=== PATIENT | female | born 1935 | race Caucasian/White ===

== ENCOUNTER 2016-10-22 19:21 | Emergency (ER) | payer MEDICARE ==
[2016-10-22 19:33] VITALS: TEMP 98.3
[2016-10-22] MEDS ORDERED: ONDANSETRON 4 MG/2 ML VIAL IVP STA (19:42)
[2016-10-22] MEDS ORDERED: SODIUM CHLORIDE 0.9% 1,000 ML IV STA (19:42)
--- NOTE | 2016-10-22 19:44 | ED ---
General Adult HPI - General Chief complaint: Chest Pain Stated complaint: chest pain Time Seen by Provider: 10/22/16 19:28 Source: patient, EMS Mode of arrival: EMS Limitations: no limitations - History of Present Illness Initial comments: 80-year-old female history of asthma was at the movie when she suddenly began vomiting no diarrhea or abdominal pain also some mild chest pain. History of mild heart attack in the past history of blood clots 4 in the past. Currently on no blood thinner. No diabetes seizures stroke. No fever or chills. No blood with vomiting. - Related Data Home Medications Medication Instructions Recorded Confirmed Albuterol Sulfate [Proventil Hfa] 1 - 2 puff INHALATION RT-Q6H PRN 10/22/16 Aspirin EC [Ecotrin Low Dose] 81 mg PO DAILY 10/22/16 10/22/16 Budesonide/Formoterol Fumarate 2 puff INHALATION RT-BID 10/22/16 10/22/16 [Symbicort 160-4.5 Mcg Inhaler] Metoprolol Tartrate [Lopressor] 25 mg PO BID 10/22/16 10/22/16 Montelukast [Singulair] 10 mg PO HS 10/22/16 10/22/16 Omeprazole [PriLOSEC] 20 mg PO AC-BRKFST 10/22/16 10/22/16 amLODIPine [Norvasc] 5 mg PO DAILY 10/22/16 10/22/16 Previous Rx's Medication Instructions Recorded Ondansetron Odt [Zofran Odt] 4 mg PO Q8HR PRN #6 tab 10/22/16 Allergies Allergy/AdvReac Type Severity Reaction Status Date / Time No Known Allergies Allergy Verified 10/22/16 19:38 Review of Systems ROS Statement: Those systems with pertinent positive or pertinent negative responses have been documented in the HPI. ROS Other: All systems not noted in ROS Statement are negative. Constitutional: Denies: fever, chills, weakness ENT: Denies: ear pain Respiratory: Reports: cough, wheezes Cardiovascular: Reports: chest pain Gastrointestinal: Reports: nausea, vomiting. Denies: diarrhea Genitourinary: Denies: frequency Skin: Denies: rash Neurological: Denies: headache Psychiatric: Denies: anxiety Hematological/Lymphatic: Denies: easy bleeding, easy bruising Past Medical History Past Medical History: Asthma, COPD, Hypertension, Myocardial Infarction ([place]), Pulmonary Embolus ([place]) History of Any Multi-Drug Resistant Organisms: None Reported Past Surgical History: Appendectomy, Hysterectomy Past Psychological History: Anxiety Smoking Status: Never smoker Past Alcohol Use History: None Reported Past Drug Use History: None Reported General Exam Limitations: no limitations General appearance: alert Head exam: Present: atraumatic Eye exam: Present: PERRL, EOMI ENT exam: Present: normal oropharynx, mucous membranes moist, TM's normal bilaterally Neck exam: Present: normal inspection Respiratory exam: Present: normal lung sounds bilaterally Cardiovascular Exam: Present: regular rate, normal heart sounds GI/Abdominal exam: Present: soft, tenderness (Epigastric tenderness and mild right upper quadrant) Neurological exam: Present: alert, CN II-XII intact Psychiatric exam: Present: normal affect, normal mood Skin exam: Present: warm, dry Course Vital Signs 10/22/16 10/22/16 19:27 21:36 Temperature 98.3 F Pulse Rate 102 H 93 Respiratory 26 H 18 Rate Blood Pressure 145/75 137/75 O2 Sat by Pulse 95 97 Oximetry Medical Decision Making - Medical Decision Making EKG is satisfactory elevated white count prior from D margination CT of the chest reveals no pulmonary emboli despite elevated d-dimer. Patient is feeling better her asthma seizures. Improved still feels a little dry in the mouth but no further nausea. Most likely this represents acute gastritis or food poisoning was sent home with Zofran clear liquid diet follow-up with her doctor this week - Lab Data Result diagrams: 10/22/16 19:54 10/22/16 19:54 Lab Results 10/22/16 10/22/16 10/22/16 Range/Units 19:54 19:54 19:54 WBC 16.5 H (3.8-10.6) k/uL RBC 4.96 (3.80-5.40) m/uL Hgb 13.8 (11.4-16.0) gm/dL Hct 42.5 (34.0-46.0) % MCV 85.6 (80.0-100.0) fL MCH 27.7 (25.0-35.0) pg MCHC 32.4 (31.0-37.0) g/dL RDW 13.8 (11.5-15.5) % Plt Count 254 (150-450) k/uL Neutrophils % 85 % Lymphocytes % 8 % Monocytes % 5 % Eosinophils % 1 % Basophils % 0 % Neutrophils # 14.0 H (1.3-7.7) k/uL Lymphocytes # 1.2 (1.0-4.8) k/uL Monocytes # 0.9 (0-1.0) k/uL Eosinophils # 0.2 (0-0.7) k/uL Basophils # 0.0 (0-0.2) k/uL PT (9.0-12.0) sec INR (<1.1) APTT (22.0-30.0) sec D-Dimer (<0.60) mg/L FEU Sodium 142 (137-145) mmol/L Potassium 4.2 (3.5-5.1) mmol/L Chloride 108 H (98-107) mmol/L Carbon Dioxide 22 (22-30) mmol/L Anion Gap 12 mmol/L BUN 20 H (7-17) mg/dL Creatinine 0.63 (0.52-1.04) mg/dL Est GFR (MDRD) Af Amer >60 (>60 ml/min/1.73 sqM) Est GFR (MDRD) Non-Af >60 (>60 ml/min/1.73 sqM) Glucose 114 H (74-99) mg/dL Calcium 8.8 (8.4-10.2) mg/dL Magnesium 1.7 (1.6-2.3) mg/dL Total Bilirubin 0.5 (0.2-1.3) mg/dL AST 23 (14-36) U/L ALT 30 (9-52) U/L Alkaline Phosphatase 96 (38-126) U/L Total Creatine Kinase 60 (30-135) U/L CK-MB (CK-2) 1.0 (0.0-2.4) ng/mL CK-MB (CK-2) Rel Index 1.7 Troponin I <0.012 (0.000-0.034) ng/mL Total Protein 6.1 L (6.3-8.2) g/dL Albumin 3.6 (3.5-5.0) g/dL Amylase 35 (30-110) U/L Lipase 71 (23-300) U/L 01/14/17 Range/Units 19:54 WBC (3.8-10.6) k/uL RBC (3.80-5.40) m/uL Hgb (11.4-16.0) gm/dL Hct (34.0-46.0) % MCV (80.0-100.0) fL MCH (25.0-35.0) pg MCHC (31.0-37.0) g/dL RDW (11.5-15.5) % Plt Count (150-450) k/uL Neutrophils % % Lymphocytes % % Monocytes % % Eosinophils % % Basophils % % Neutrophils # (1.3-7.7) k/uL Lymphocytes # (1.0-4.8) k/uL Monocytes # (0-1.0) k/uL Eosinophils # (0-0.7) k/uL Basophils # (0-0.2) k/uL PT 10.3 (9.0-12.0) sec INR 1.0 (<1.1) APTT 20.2 L (22.0-30.0) sec D-Dimer 1.03 H (<0.60) mg/L FEU Sodium (137-145) mmol/L Potassium (3.5-5.1) mmol/L Chloride (98-107) mmol/L Carbon Dioxide (22-30) mmol/L Anion Gap mmol/L BUN (7-17) mg/dL Creatinine (0.52-1.04) mg/dL Est GFR (MDRD) Af Amer (>60 ml/min/1.73 sqM) Est GFR (MDRD) Non-Af (>60 ml/min/1.73 sqM) Glucose (74-99) mg/dL Calcium (8.4-10.2) mg/dL Magnesium (1.6-2.3) mg/dL Total Bilirubin (0.2-1.3) mg/dL AST (14-36) U/L ALT (9-52) U/L Alkaline Phosphatase (38-126) U/L Total Creatine Kinase (30-135) U/L CK-MB (CK-2) (0.0-2.4) ng/mL CK-MB (CK-2) Rel Index Troponin I (0.000-0.034) ng/mL Total Protein (6.3-8.2) g/dL Albumin (3.5-5.0) g/dL Amylase (30-110) U/L Lipase (23-300) U/L - EKG Data -: EKG Interpreted by Me 10/22/16 20:08 EKG 10/22/2016 1927 ventricular rate 94 bpm, UT interval 136 ms, QRS duration 64 ms, QT interval 356 ms normal sinus rhythm nonspecific ST-T changes poor baseline in V5 and 6 Disposition Clinical Impression: Gastroenteritis, Asthma Disposition: HOME SELF-CARE Instructions: Acute Nausea and Vomiting (ED) Prescriptions: Ondansetron Odt [Zofran Odt] 4 mg PO Q8HR PRN #6 tab PRN Reason: Vomiting Time of Disposition: 21:46
[2016-10-22 20:21] LABS: Basophils % (A) 0 %; CH 27.8; CHCM 32.6; Eosinophils # (A) 0.2 k/uL (0-0.7); Eosinophils % (A) 1 %; HCT 42.5 % (34.0-46.0); HDW 2.25; HGB 13.8 gm/dL (11.4-16.0); Luc % (Auto) 1; Lymphocytes # (A) 1.2 k/uL (1.0-4.8); Lymphocytes % (A) 8 %; MCH 27.7 pg (25.0-35.0); MCHC 32.4 g/dL (31.0-37.0); MCV 85.6 fL (80.0-100.0); Mean Platelet Volume 7.4; Monocytes # (A) 0.9 k/uL (0-1.0); Monocytes % (A) 5 %; Neutrophils % (A) 85 %; RBC 4.96 m/uL (3.80-5.40); RDW 13.8 % (11.5-15.5); WBC 16.5 k/uL (3.8-10.6); WBC (Perox) 16.57
--- NOTE | 2016-10-22 20:27 | XR ---
EXAMINATION TYPE: XR chest 2V DATE OF EXAM: 10/22/2016 8:16 PM COMPARISON: None HISTORY: 80-year-old female with chest pain TECHNIQUE: AP and lateral views FINDINGS: Heart is upper limits of normal in size. Aorta and pulmonary vasculature within normal limits. Mild i nterstitial prominence has a chronic appearance. No consolidation or pleural effusion. IMPRESSION: Chronic-appearing changes, possible bronchitis or chronic asthma. No definite acute process.
[2016-10-22 20:32] LABS: ALT 30 U/L (9-52); AST 23 U/L (14-36); Alkaline Phosphatase 96 U/L (38-126); Amylase 35 U/L (30-110); Anion Gap 12 mmol/L; Blood Urea Nitrogen 20 mg/dL (7-17); Calcium 8.8 mg/dL (8.4-10.2); Carbon Dioxide 22 mmol/L (22-30); Chloride 108 mmol/L (98-107); Glucose 114 mg/dL (74-99); Magnesium 1.7 mg/dL (1.6-2.3); Non-African American GFR(MDRD) >60 (>60 ml/min/1.73 sqM); Potassium 4.2 mmol/L (3.5-5.1); Sodium 142 mmol/L (137-145); Total Bilirubin 0.5 mg/dL (0.2-1.3); Total Protein 6.1 g/dL (6.3-8.2)
[2016-10-22 20:35] LABS: Partial Thromboplastin Time 20.2 sec (22.0-30.0); Prothrombin Time 10.3 sec (9.0-12.0)
[2016-10-22 20:37] LABS: Creatine Kinase 60 U/L (30-135)
[2016-10-22] MEDS ORDERED: RX INFO: IV CONTRAST WAS GIVEN 1 EACH MISC MISCELLANE PRN (20:47)
[2016-10-22 20:50] LABS: Troponin I <0.012 ng/mL (0.000-0.034)
--- NOTE | 2016-10-22 21:35 | CT ---
EXAMINATION TYPE: CT chest angio for PE DATE OF EXAM: 10/22/2016 9:22 PM COMPARISON: Radiograph same day HISTORY: 80-year-old female with shortness of breath TECHNIQUE: Contiguous axial scanning of the chest performed with IV Contrast, patient injected with 1 00 mL of Omnipaque 350. Coronal/sagittal MIP reconstructions performed. CT DLP: 179.5 mGycm Automated exposure control for dose reduction was used. FINDINGS: The heart is borderline enlarged without pericardial effusion. Coronary vessel calcifications are pre sent and are remarkable for coronary artery disease. Aorta is normal caliber with variant direct takeoff of the left vertebral artery directly from the ao rtic arch. There is satisfactory opacification of the pulmonary arterial system though with mild respiratory mot ion limiting evaluation. No pulmonary embolism is identified. Scattered nonenlarged mediastinal lymph nodes measuring up to 6 mm in the left tracheobronchial angle . There is [id number] diffuse bronchial wall thickening and hazy dependent atelectasis. No dahlia consolidation or pleural effusion. There is a moderate to large sized hiatal hernia. Partially visualized hypodense lesion measuring at least 1.9 cm in the anterior left kidney. There is also mild diffuse thickening of the left adrenal gland without discrete nodularity. Tiny anterior sp lenule is seen. Bones: No osseous destructive process. IMPRESSION: 1. MILD RESPIRATORY MOTION CAUSING SOME LIMITATIONS. NO DEFINITE PULMONARY EMBOLUS. 2. BORDERLINE CARDIOMEGALY AND CAD. 3. [id number] DIFFUSE BRONCHIAL WALL THICKENING COULD REPRESENT BRONCHITIS OR CHRONIC ASTHMA. 4. MODERATE TO LARGE SIZED HIATAL HERNIA. 5. PARTIALLY VISUALIZED HYPODENSE LESION ANTERIOR LEFT KIDNEY MEASURING AT LEAST 1.9 CM. POSSIBLE CYS T. RECOMMEND NONEMERGENT RENAL ULTRASOUND TO CONFIRM.
[2016-10-22 21:37] VITALS: BP 137/75; PULSE 93; RESP 18
== END 2016-10-22 21:58 | disposition home or self-care (01) ==
LOC: EC 19:21
DX: K52.9 Noninfective gastroenteritis and colitis, unspecified (principal); J45.909 Unspecified asthma, uncomplicated; J44.9 Chronic obstructive pulmonary disease, unspecified; K44.9 Diaphragmatic hernia without obstruction or gangrene; I25.2 Old myocardial infarction; Z79.82 Long term (current) use of aspirin; Z86.711 Personal history of pulmonary embolism; Z79.899 Other long term (current) drug therapy
CPT/HCPCS: 36415; 93005; 85379; 80053; 82150; 82550; 82553; 83690; 83735; 84484; 85025; 85610; 85730; 71020; 71275; 99285; 96374; 96361; Q9967; J2405

== ENCOUNTER 2018-05-30 18:05 | Inpatient (IN) | payer MEDICARE ==
[2018-05-30 19:19] LABS: Basophils % (A) 0 %; Eosinophils % (A) 0 %; HGB 13.8 gm/dL (11.4-16.0); Lymphocytes # (A) 2.3 k/uL (1.0-4.8); Lymphocytes % (A) 17 %; MCH 27.5 pg (25.0-35.0); MCHC 32.1 g/dL (31.0-37.0); MCV 85.6 fL (80.0-100.0); Monocytes # (A) 1.3 k/uL (0-1.0); Monocytes % (A) 10 %; Neutrophils # (A) 9.4 k/uL (1.3-7.7); Neutrophils % (A) 69 %; Platelet Count 218 k/uL (150-450); RBC 5.02 m/uL (3.80-5.40); WBC 13.6 k/uL (3.8-10.6)
[2018-05-30 19:29] LABS: ALT 38 U/L (9-52); AST 27 U/L (14-36); Albumin 3.8 g/dL (3.5-5.0); Alkaline Phosphatase 64 U/L (38-126); Anion Gap 10 mmol/L; Blood Urea Nitrogen 26 mg/dL (7-17); Calcium 9.4 mg/dL (8.4-10.2); Carbon Dioxide 23 mmol/L (22-30); Chloride 104 mmol/L (98-107); Glucose 103 mg/dL (74-99); Magnesium 2.1 mg/dL (1.6-2.3); Potassium 4.7 mmol/L (3.5-5.1); Sodium 137 mmol/L (137-145); Total Bilirubin 0.5 mg/dL (0.2-1.3); Total Protein 6.5 g/dL (6.3-8.2)
[2018-05-30 19:32] LABS: Creatine Kinase 32 U/L (30-135)
[2018-05-30 19:45] LABS: Troponin I <0.012 ng/mL (0.000-0.034)
--- NOTE | 2018-05-30 19:56 | XR ---
EXAMINATION: XR chest 2V DATE AND TIME: 05/30/2018 7:18 PM CLINICAL INDICATION: Chest Pain TECHNIQUE: PA and lateral COMPARISON: 10/22/2016 FINDINGS: The overlying soft tissues are prominent. Given this factor, the lungs appear to be clear. The pleural spaces are negative. The cardiac silhouette is mildly enlarged, unchanged. The remainder of the mediastinal silhouette is unremarkable. The skeletal structures and soft tissues are negative for acute findings. IMPRESSION: NO ACUTE PROCESS.
[2018-05-30 19:58] LABS: Creatine Kinase MB 2.6 ng/mL (0.0-2.4)
--- NOTE | 2018-05-30 20:12 | ED ---
General Adult HPI - General Chief complaint: Chest Pain Stated complaint: Chest Pain Time Seen by Provider: 05/30/18 18:08 Source: patient, RN notes reviewed, old records reviewed Mode of arrival: EMS Limitations: no limitations - History of Present Illness Initial comments: This is an 82-year-old female the ER for evaluation today. Patient resents today for evaluation regards to chest pain. Left-sided chest pain severe stress reaction. Patient has history of heart disease and cardiovascular disease. Patient had a syncopal episode on her front porch and was brought in by EMS. Patient did not lose consciousness. Had difficulty breathing and complaining of severe chest pain, chest pain per patient is improved while in our emergency room. Family states patient has not had prior reactions, patient is mildly poor historian regarding medical history - Related Data Home Medications Medication Instructions Recorded Confirmed Albuterol Sulfate [Proventil Hfa] 1 - 2 puff INHALATION RT-Q4H PRN 10/22/16 Aspirin EC [Ecotrin Low Dose] 81 mg PO DAILY 10/22/16 05/30/18 Metoprolol Tartrate [Lopressor] 25 mg PO BID 10/22/16 05/30/18 Montelukast [Singulair] 10 mg PO HS 10/22/16 05/30/18 Omeprazole [PriLOSEC] 20 mg PO AC-BRKFST 10/22/16 05/30/18 amLODIPine [Norvasc] 5 mg PO DAILY 10/22/16 05/30/18 Albuterol Nebulized [Ventolin 2.5 mg INHALATION Q4H PRN 05/30/18 05/30/18 Nebulized] Calcium Carbonate/Vitamin D3 1 tab PO DAILY 05/30/18 05/30/18 [Calcium 600-Vit D3 200 Tablet] Chondroitin 1 tab PO HS 05/30/18 05/30/18 Ferrous Sulfate [Feosol] 325 mg PO DAILY 05/30/18 05/30/18 Fluticasone/Salmeterol [Advair 1 inhalation PO RT-BID 05/30/18 05/30/18 250-50 Diskus] Lansoprazole 30 mg PO DAILY 05/30/18 05/30/18 Allergies Allergy/AdvReac Type Severity Reaction Status Date / Time orange juice [Mathews] Allergy Rash/Hives Verified 05/30/18 18:49 ciprofloxacin AdvReac Diarrhea Verified 05/30/18 18:49 gluten AdvReac Nausea & Verified 05/30/18 18:49 Vomiting & Diarrhea Review of Systems ROS Statement: Those systems with pertinent positive or pertinent negative responses have been documented in the HPI. ROS Other: All systems not noted in ROS Statement are negative. Past Medical History Past Medical History: Asthma, COPD, Hypertension, Myocardial Infarction ([place]), Pulmonary Embolus ([place]) History of Any Multi-Drug Resistant Organisms: None Reported Past Surgical History: Appendectomy, Hysterectomy Past Psychological History: Anxiety Smoking Status: Never smoker Past Alcohol Use History: None Reported Past Drug Use History: None Reported General Exam Limitations: no limitations General appearance: alert, in no apparent distress Head exam: Present: atraumatic, normocephalic, normal inspection Eye exam: Present: normal appearance, PERRL, EOMI. Absent: scleral icterus, conjunctival injection, periorbital swelling ENT exam: Present: normal exam, mucous membranes moist Neck exam: Present: normal inspection. Absent: tenderness, meningismus, lymphadenopathy Respiratory exam: Present: normal lung sounds bilaterally. Absent: respiratory distress, wheezes, rales, rhonchi, stridor Cardiovascular Exam: Present: regular rate, normal rhythm, normal heart sounds. Absent: systolic murmur, diastolic murmur, rubs, gallop, clicks GI/Abdominal exam: Present: soft, normal bowel sounds. Absent: distended, tenderness, guarding, rebound, rigid Extremities exam: Present: normal inspection, full ROM, normal capillary refill. Absent: tenderness, pedal edema, joint swelling, calf tenderness Back exam: Present: normal inspection Neurological exam: Present: alert, oriented X3, CN II-XII intact Psychiatric exam: Present: normal affect, normal mood Skin exam: Present: warm, dry, intact, normal color. Absent: rash Course Vital Signs 05/30/18 05/30/18 05/30/18 18:09 18:40 19:37 Temperature 98.3 F Pulse Rate 76 83 Respiratory 20 20 20 Rate Blood Pressure 179/78 174/77 O2 Sat by Pulse 98 96 Oximetry 05/30/18 20:51 Temperature Pulse Rate 74 Respiratory 18 Rate Blood Pressure 142/74 O2 Sat by Pulse 97 Oximetry - Reevaluation(s) Reevaluation #1: 05/30/18 21:12 Patient with no syncopal events here in the ER chest pain continues remain improved. Patient be admitted for cardiac observation EKG Findings - EKG Comments: EKG Findings:: EKG shows sinus rhythm rate of 90, AL 132, QRS 66, QTc 437 Medical Decision Making - Medical Decision Making 82 female the ER for chest pain. Will be admitted as chest pain observation - Lab Data Result diagrams: 05/30/18 19:03 05/30/18 19:03 Lab Results 05/30/18 05/30/18 05/30/18 Range/Units 19:03 19:03 19:03 WBC 13.6 H (3.8-10.6) k/uL RBC 5.02 (3.80-5.40) m/uL Hgb 13.8 (11.4-16.0) gm/dL Hct 43.0 (34.0-46.0) % MCV 85.6 (80.0-100.0) fL MCH 27.5 (25.0-35.0) pg MCHC 32.1 (31.0-37.0) g/dL RDW 15.0 (11.5-15.5) % Plt Count 218 (150-450) k/uL Neutrophils % 69 % Lymphocytes % 17 % Monocytes % 10 % Eosinophils % 0 % Basophils % 0 % Neutrophils # 9.4 H (1.3-7.7) k/uL Lymphocytes # 2.3 (1.0-4.8) k/uL Monocytes # 1.3 H (0-1.0) k/uL Eosinophils # 0.0 (0-0.7) k/uL Basophils # 0.0 (0-0.2) k/uL PT 9.5 (9.0-12.0) sec INR 1.0 (<1.2) APTT 20.4 L (22.0-30.0) sec D-Dimer 7.64 H (<0.60) mg/L FEU Sodium 137 (137-145) mmol/L Potassium 4.7 (3.5-5.1) mmol/L Chloride 104 (98-107) mmol/L Carbon Dioxide 23 (22-30) mmol/L Anion Gap 10 mmol/L BUN 26 H (7-17) mg/dL Creatinine 0.69 (0.52-1.04) mg/dL Est GFR (CKD-EPI)AfAm >90 (>60 ml/min/1.73 sqM) Est GFR (CKD-EPI)NonAf 82 (>60 ml/min/1.73 sqM) Glucose 103 H (74-99) mg/dL Calcium 9.4 (8.4-10.2) mg/dL Magnesium 2.1 (1.6-2.3) mg/dL Total Bilirubin 0.5 (0.2-1.3) mg/dL AST 27 (14-36) U/L ALT 38 (9-52) U/L Alkaline Phosphatase 64 (38-126) U/L Total Creatine Kinase (30-135) U/L CK-MB (CK-2) (0.0-2.4) ng/mL CK-MB (CK-2) Rel Index Troponin I (0.000-0.034) ng/mL NT-Pro-B Natriuret Pep pg/mL Total Protein 6.5 (6.3-8.2) g/dL Albumin 3.8 (3.5-5.0) g/dL 05/30/18 05/30/18 Range/Units 19:03 19:03 WBC (3.8-10.6) k/uL RBC (3.80-5.40) m/uL Hgb (11.4-16.0) gm/dL Hct (34.0-46.0) % MCV (80.0-100.0) fL MCH (25.0-35.0) pg MCHC (31.0-37.0) g/dL RDW (11.5-15.5) % Plt Count (150-450) k/uL Neutrophils % % Lymphocytes % % Monocytes % % Eosinophils % % Basophils % % Neutrophils # (1.3-7.7) k/uL Lymphocytes # (1.0-4.8) k/uL Monocytes # (0-1.0) k/uL Eosinophils # (0-0.7) k/uL Basophils # (0-0.2) k/uL PT (9.0-12.0) sec INR (<1.2) APTT (22.0-30.0) sec D-Dimer (<0.60) mg/L FEU Sodium (137-145) mmol/L Potassium (3.5-5.1) mmol/L Chloride (98-107) mmol/L Carbon Dioxide (22-30) mmol/L Anion Gap mmol/L BUN (7-17) mg/dL Creatinine (0.52-1.04) mg/dL Est GFR (CKD-EPI)AfAm (>60 ml/min/1.73 sqM) Est GFR (CKD-EPI)NonAf (>60 ml/min/1.73 sqM) Glucose (74-99) mg/dL Calcium (8.4-10.2) mg/dL Magnesium (1.6-2.3) mg/dL Total Bilirubin (0.2-1.3) mg/dL AST (14-36) U/L ALT (9-52) U/L Alkaline Phosphatase (38-126) U/L Total Creatine Kinase 32 (30-135) U/L CK-MB (CK-2) 2.6 H* (0.0-2.4) ng/mL CK-MB (CK-2) Rel Index 8.1 Troponin I <0.012 (0.000-0.034) ng/mL NT-Pro-B Natriuret Pep 456 pg/mL Total Protein (6.3-8.2) g/dL Albumin (3.5-5.0) g/dL - Radiology Data Radiology results: report reviewed (Chest x-rays negative for acute disease), image reviewed Critical Care Time Critical Care Time: Yes Total Critical Care Time: 31 Disposition Clinical Impression: Chest pain Disposition: ADMITTED IP TO THIS [facility] Condition: Good Instructions: Chest Pain (ED) Is patient prescribed a controlled substance at d/c from ED?: No Referrals: Malgorzata Kaplan DO [Primary Care Provider] - 1-2 days
[2018-05-30 20:19] LABS: Partial Thromboplastin Time 20.4 sec (22.0-30.0); Prothrombin Time 9.5 sec (9.0-12.0)
[2018-05-30 20:22] LABS: D-Dimer 7.64 mg/L FEU (<0.60)
[2018-05-30] MEDS ORDERED: HEPARIN SODIUM,PORCINE 5,000 UNIT/ML 1 ML VIAL IV PRN ×2 (21:12→23:15)
[2018-05-30] MEDS ORDERED: NITROGLYCERIN SL TABS 0.4 MG TAB SUBLINGUAL PRN (21:12)
[2018-05-30] MEDS ORDERED: ASPIRIN 81 MG PO STA (21:12)
[2018-05-30] MEDS ORDERED: HEPARIN SODIUM,PORCINE 5,000 UNIT/ML 1 ML VIAL IV ONE (21:12)
[2018-05-30] MEDS ORDERED: HEPARIN SOD,PORK IN 0.45% NACL 25,000 UNIT in 0.45% NACL 1 500ML.BAG IV SCH ×2 (21:15→23:45)
[2018-05-30] MEDS: SODIUM CHLORIDE 0.9% 1,000 ML IV SCH (22:11)
--- NOTE | 2018-05-30 22:31 | CT ---
EXAMINATION TYPE: CT angio chest with contrast and 3-D reconstruction renderings DATE OF EXAM: 05/30/2018 9:49 PM COMPARISON: None HISTORY: Chest and back pain. Elevated D-dimer. CT DLP: 230.2 mGycm Automated exposure control for dose reduction was used. CONTRAST: CTA scan of the thorax is performed with IV Contrast, patient injected with 58ml mL of Isov ue 370, pulmonary embolism protocol. 3-D reconstructions. FINDINGS: AIRWAYS: Unremarkable. LUNGS: The lungs are grossly clear, there is no concerning parenchymal mass or nodule identified. PLEURAL SPACES: There is no pleural effusion or pneumothorax seen. The tracheobronchial tree is valdes nt. MEDIASTINUM: There is satisfactory enhancement of the pulmonary artery and its branches, with nonoccl usive filling defects within branches of the left lower lobe pulmonary artery, namely the anterior, l ateral, and posterior basal segmental pulmonary arteries. No other pulmonary emboli. There is no righ t heart enlargement or other evidence of right heart strain. The aorta is unremarkable. There is moderate cardiomegaly with coronary calcifications noted. No pe ricardial effusion. There are is no mediastinal or hilar adenopathy. The proximal third of the stomac h has intrathoracic position. OTHER: No additional significant abnormality is seen. IMPRESSION: POSITIVE FOR PULMONARY EMBOLISM, IN THE LEFT LOWER LOBE SEGMENTAL BRANCHES.
[2018-05-30] MEDS ORDERED: ALBUTEROL NEBULIZED 2.5 MG/3 ML INHALATION PRN (23:13)
[2018-05-30] MEDS ORDERED: TEMAZEPAM 15 MG CAP PO PRN (23:14)
[2018-05-30] MEDS ORDERED: ACETAMINOPHEN TAB 500 MG TAB PO PRN (23:14)
[2018-05-30] MEDS ORDERED: HYDROcodone/APAP 5-325MG 1 EACH TAB PO PRN (23:14)
[2018-05-30] MEDS ORDERED: ALPRAZolam 0.25 MG TAB PO PRN (23:14)
[2018-05-30] MEDS ORDERED: HEPARIN SODIUM,PORCINE 10,000 UNIT/ML 1 ML VIAL IV ONE (23:15)
[2018-05-31 02:17] LABS: Creatine Kinase <20 U/L (30-135)
[2018-05-31 02:30] LABS: Creatine Kinase MB 1.4 ng/mL (0.0-2.4); Troponin I <0.012 ng/mL (0.000-0.034)
[2018-05-31] MEDS: PANTOPRAZOLE 40 MG TABLET PO SCH (06:02)
[2018-05-31 06:26] LABS: Basophils % (A) 0 %; Eosinophils # (A) 0.1 k/uL (0-0.7); Eosinophils % (A) 1 %; HCT 43.3 % (34.0-46.0); HGB 13.5 gm/dL (11.4-16.0); Lymphocytes # (A) 2.1 k/uL (1.0-4.8); Lymphocytes % (A) 16 %; MCH 27.2 pg (25.0-35.0); MCHC 31.2 g/dL (31.0-37.0); MCV 87.2 fL (80.0-100.0); Monocytes # (A) 0.9 k/uL (0-1.0); Monocytes % (A) 7 %; Neutrophils # (A) 9.7 k/uL (1.3-7.7); Neutrophils % (A) 74 %; Platelet Count 209 k/uL (150-450); RBC 4.96 m/uL (3.80-5.40); RDW 15.1 % (11.5-15.5); WBC 13.1 k/uL (3.8-10.6)
[2018-05-31 06:46] LABS: Creatine Kinase 26 U/L (30-135)
[2018-05-31 06:48] LABS: Anion Gap 7 mmol/L; Blood Urea Nitrogen 19 mg/dL (7-17); Calcium 9.2 mg/dL (8.4-10.2); Carbon Dioxide 24 mmol/L (22-30); Chloride 108 mmol/L (98-107); Cholesterol 217 mg/dL (<200); Glucose 90 mg/dL (74-99); HDL Cholesterol 44 mg/dL (40-60); LDL Cholesterol,Calculated 148 mg/dL (0-99); Potassium 4.5 mmol/L (3.5-5.1); Sodium 139 mmol/L (137-145); Triglycerides 126 mg/dL (<150)
[2018-05-31 06:59] LABS: Creatine Kinase MB 1.7 ng/mL (0.0-2.4); Troponin I <0.012 ng/mL (0.000-0.034)
[2018-05-31 09:00] VITALS: RESP 16
[2018-05-31] MEDS ORDERED: NON-FORMULARY DRUG (Lansoprazole [Lansoprazole] 30 MG) PO SCH (09:00)
[2018-05-31] MEDS ORDERED: ASPIRIN 325 MG TAB PO SCH (09:00)
[2018-05-31] MEDS: METOPROLOL TARTRATE 25 MG TAB PO SCH ×2 (09:03→22:09)
[2018-05-31] MEDS: FERROUS SULFATE 325 MG TAB PO SCH (09:03)
[2018-05-31] MEDS: ATORVASTATIN 80 MG TAB PO SCH (09:03)
[2018-05-31] MEDS: amLODIPine 5 MG TAB PO SCH (09:03)
[2018-05-31] MEDS: ASPIRIN 81 MG PO SCH (09:03)
[2018-05-31] MEDS: CALCIUM CARB-VIT D 500MG-200UN 1 EACH TAB PO SCH (09:03)
--- NOTE | 2018-05-31 09:03 | P.CRDCN ---
History of Present Illness Consult date: 05/31/18 Requesting physician: Geronimo Lafleur Consult reason: chest pain Chief complaint: Chest pain History of present illness: This is a very pleasant 82-year-old female with history of asthma, COPD, hypertension, prior pulmonary embolism, who presents to the hospital with symptoms of chest discomfort which she described as quite severe, patient also states she became very short of breath and developed a headache. Her daughter was assisting her to the car to come to the emergency room, when she had a near syncopal episode so EMS was called and brought her here. Blood pressure on arrival here 178/78, heart rate in the 70s, 98% on 2 L of oxygen. Temperature 98.3. Chest x-ray on arrival here did not reveal any acute process. CT of the chest was performed which was positive for pulmonary embolism in the left lower lobe segmental branches. EKG shows normal sinus rhythm with S1 Q3 T3 pattern noted. White blood cell count 13.6, hemoglobin 13.5, platelet count 209. D- dimer on admission 7.6. Sodium 139, potassium 4.5, BUN 19, creatinine 0.6. Troponins negative 3. Cholesterol 217, LDL 148, HDL 44, and triglycerides 126. Patient was initiated on IV heparin in the emergency room, at the time of my examination she denies any chest pain in her breathing is stable. Patient was taken off of her anticoagulants following her last PE. She states that it was not determined at that time why she had a pulmonary embolism. She did return recently from a long trip however they make frequent stops according to the daughter. No recent surgeries. She is fairly active. We will obtain a bilateral venous duplex study, suggested hematology consultation due to the fact that this is her second episode with a pulmonary embolism. Past Medical History Past Medical History: Asthma, COPD, Hypertension, Pulmonary Embolus (PE) Additional Past Medical History / Comment(s): PE 8yrs ago, celiac disease History of Any Multi-Drug Resistant Organisms: None Reported Past Surgical History: Appendectomy, Hysterectomy Past Anesthesia/Blood Transfusion Reactions: No Reported Reaction Past Psychological History: Anxiety Smoking Status: Never smoker Past Alcohol Use History: None Reported Past Drug Use History: None Reported - Past Family History Mother History Unknown: Yes Medications and Allergies Home Medications Medication Instructions Recorded Confirmed Type Albuterol Sulfate [Proventil Hfa] 1 - 2 puff INHALATION RT-Q4H PRN 10/22/16 History Aspirin EC [Ecotrin Low Dose] 81 mg PO DAILY 10/22/16 05/30/18 History Metoprolol Tartrate [Lopressor] 25 mg PO BID 10/22/16 05/30/18 History Montelukast [Singulair] 10 mg PO HS 10/22/16 05/30/18 History Omeprazole [PriLOSEC] 20 mg PO AC-BRKFST 10/22/16 05/30/18 History amLODIPine [Norvasc] 5 mg PO DAILY 10/22/16 05/30/18 History Albuterol Nebulized [Ventolin 2.5 mg INHALATION Q4H PRN 05/30/18 05/30/18 History Nebulized] Calcium Carbonate/Vitamin D3 1 tab PO DAILY 05/30/18 05/30/18 History [Calcium 600-Vit D3 200 Tablet] Chondroitin 1 tab PO HS 05/30/18 05/30/18 History Ferrous Sulfate [Feosol] 325 mg PO DAILY 05/30/18 05/30/18 History Fluticasone/Salmeterol [Advair 1 inhalation PO RT-BID 05/30/18 05/30/18 History 250-50 Diskus] Lansoprazole 30 mg PO DAILY 05/30/18 05/30/18 History Allergies Allergy/AdvReac Type Severity Reaction Status Date / Time orange juice [[place]] Allergy Rash/Hives Verified 05/30/18 18:49 ciprofloxacin AdvReac Diarrhea Verified 05/30/18 18:49 gluten AdvReac Nausea & Verified 05/30/18 18:49 Vomiting & Diarrhea Physical Exam Vitals: Vital Signs Temp Pulse Pulse Resp BP BP Pulse Ox 05/31/18 04:00 97.8 F 83 18 158/76 96 05/31/18 00:45 97.5 F L 77 18 148/67 93 L 05/30/18 23:54 99.9 F H 77 18 160/79 97 05/30/18 22:16 82 18 165/79 97 05/30/18 20:51 74 18 142/74 97 05/30/18 19:37 83 20 174/77 96 05/30/18 18:40 20 05/30/18 18:09 98.3 F 76 20 179/78 98 Intake and Output 08/05/31/18 05/31/18 22:59 06:59 14:59 Intake Total 240 Balance 240 Intake: Oral 240 Other: # Voids 1 Weight 65.771 kg 58.5 kg PHYSICAL EXAMINATION: GENERAL: 82-year-old female in no acute distress at the time of my examination HEENT: Head is atraumatic, normocephalic. Pupils equal, round. Sclera anicteric. Conjunctiva are clear. Mucous membranes of the mouth are moist. Neck is supple. There is no elevated jugular venous pressure.] bruit is heard. HEART EXAMINATION: Heart S1, S2 normal. No murmur or gallop heard. CHEST EXAMINATION: Lungs are clear to auscultation and precussion. No chest wall tenderness is noted on palpation or with deep breathing. ABDOMEN: Soft, nontender. Bowel sounds are heard. No organomegaly noted. EXTREMITIES: 2+ peripheral pulses with no evidence of peripheral edema and no calf tenderness noted. NEUROLOGIC patient is awake, alert and oriented ?-3. . Results 05/31/18 06:04 05/31/18 06:04 Cardiac Enzymes 05/30/18 05/30/18 05/31/18 Range/Units 19:03 19:03 00:59 AST 27 (14-36) U/L CK-MB (CK-2) 2.6 H* 1.4 (0.0-2.4) ng/mL Troponin I <0.012 <0.012 (0.000-0.034) ng/mL 05/31/18 Range/Units 06:04 AST (14-36) U/L CK-MB (CK-2) 1.7 (0.0-2.4) ng/mL Troponin I <0.012 (0.000-0.034) ng/mL Coagulation 05/30/18 05/31/18 Range/Units 19:03 06:04 PT 9.5 (9.0-12.0) sec APTT 20.4 L 65.1 H (22.0-30.0) sec Lipids 05/31/18 Range/Units 06:04 Triglycerides 126 (<150) mg/dL Cholesterol 217 H (<200) mg/dL HDL Cholesterol 44 (40-60) mg/dL CBC 05/30/18 05/31/18 Range/Units 19:03 06:04 WBC 13.6 H 13.1 H (3.8-10.6) k/uL RBC 5.02 4.96 (3.80-5.40) m/uL Hgb 13.8 13.5 (11.4-16.0) gm/dL Hct 43.0 43.3 (34.0-46.0) % Plt Count 218 209 (150-450) k/uL Comprehensive Metabolic Panel 05/30/18 05/31/18 Range/Units 19:03 06:04 Sodium 137 139 (137-145) mmol/L Potassium 4.7 4.5 (3.5-5.1) mmol/L Chloride 104 108 H (98-107) mmol/L Carbon Dioxide 23 24 (22-30) mmol/L BUN 26 H 19 H (7-17) mg/dL Creatinine 0.69 0.63 (0.52-1.04) mg/dL Glucose 103 H 90 (74-99) mg/dL Calcium 9.4 9.2 (8.4-10.2) mg/dL AST 27 (14-36) U/L ALT 38 (9-52) U/L Alkaline Phosphatase 64 (38-126) U/L Total Protein 6.5 (6.3-8.2) g/dL Albumin 3.8 (3.5-5.0) g/dL Current Medications Generic Name Dose Route Start Last Admin Trade Name Freq PRN Reason Stop Dose Admin Acetaminophen 500 mg 05/30/18 23:14 Tylenol Tab PO Q6HR PRN Fever and/ or Pain Hydrocodone Bitart/Acetaminophen 1 each 05/30/18 23:14 [place] 5-325 PO Q6HR PRN Pain Albuterol Sulfate 2.5 mg 05/30/18 23:13 Ventolin Nebulized INHALATION Q4H PRN Shortness Of Breath Alprazolam 0.25 mg 05/30/18 23:14 Xanax PO TID PRN Anxiety Amlodipine Besylate 5 mg 05/31/18 09:00 Norvasc PO DAILY [facility] Aspirin 81 mg 05/31/18 09:00 Aspirin PO DAILY [facility] Atorvastatin Calcium 80 mg 05/31/18 09:00 Lipitor PO DAILY [facility] Budesonide/Formoterol Fumarate 2 puff 05/31/18 08:00 Symbicort 80-4.5 Mcg Inhaler INHALATION RT-BID [facility] Calcium Carbonate 1 each 05/31/18 09:00 Oscal 500+D PO DAILY LISA Ferrous Sulfate 325 mg 05/31/18 09:00 Feosol PO DAILY LISA Heparin Sodium (Porcine) 0 unit 05/30/18 23:15 Heparin IV PER PROTOCOL PRN Low PTT Protocol Sodium Chloride 1,000 mls @ 20 mls/hr 05/30/18 21:15 05/30/18 22:11 Saline 0.9% IV 20 mls/hr .Q24H LISA Administration Heparin Sodium/Sodium Chloride 500 mls @ 23.67 mls/hr 05/30/18 23:45 23:53 25,000 unit/ Sodium Chloride IV 18 units/kg/hr .Q21H8M LISA 23.67 mls/hr Administration Protocol 18 UNITS/KG/HR Metoprolol Tartrate 25 mg 05/31/18 09:00 Lopressor PO BID LISA Montelukast Sodium 10 mg 05/31/18 21:00 Singulair PO HS LISA Nitroglycerin 0.4 mg 05/30/18 21:12 Nitrostat SUBLINGUAL Q5M PRN Chest Pain Pantoprazole Sodium 40 mg 05/31/18 07:30 05/31/18 06:02 Protonix PO 40 mg AC-BRKFST LISA Administration Temazepam 15 mg 05/30/18 23:14 Restoril PO HS PRN Insomnia Intake and Output 05/30/18 05/31/18 05/31/18 22:59 06:59 14:59 Intake Total 240 Balance 240 Intake: Oral 240 Other: # Voids 1 Weight 65.771 kg 58.5 kg 05/31/18 06:04 05/31/18 06:04 EKG Interpretations (text) EKG shows a normal sinus rhythm with S1 Q3 T3 pattern noted Assessment and Plan Plan: Assessment and plan #1 chest pain with associated shortness of breath, positive pulmonary embolism by CTA. Patient currently on IV heparin. #2 history of prior pulmonary embolism #3 asthma #4 COPD #5 hypertension Plan We'll obtain an echocardiogram with Doppler study. We will also request a bilateral venous duplex study be performed. We also recommend a hematology consultation based on the fact that the patient has had prior pulmonary embolism in the past. We will check to see the patient has coverage for Eliquis , continue IV heparin at this time and then initiate [facility] per PE protocol. Further recommendations to follow. DNP note has been reviewed, I agree with a documented findings and plan of care. Patient was seen and examined.
--- NOTE | 2018-05-31 10:15 | US ---
EXAMINATION TYPE: US venous doppler duplex LE BI DATE OF EXAM: 05/31/2018 10:03 AM COMPARISON: NONE CLINICAL HISTORY: r/o dvt. Pt states H/O multiple PE's, currently admitted for newly diagnosed PE, pt states no known history of DVT in legs SIDE PERFORMED: Bilateral TECHNIQUE: The lower extremity deep venous system is examined utilizing real time linear array sonog isatu with graded compression, doppler sonography and color-flow sonography. VESSELS IMAGED: External Iliac Vein (EIV) Common Femoral Vein Deep Femoral Vein Greater Saphenous Vein * Femoral Vein Popliteal Vein Small Saphenous Vein * Proximal Calf Veins (* superficial vessels) Grayscale, color doppler, spectral doppler imaging performed of the deep veins of the lower extremiti es. There is normal flow, compressibility, vascular waveforms in the right lower extremity. Right Leg: Negative for DVT Left Leg: Positive for DVT of indeterminant age within left popliteal vein and branch of proximal ca lf vein, low-level internal echoes with lack of compressibility noted, laminar flow is present IMPRESSION: Deep venous thrombosis left lower extremity as described
--- NOTE | 2018-05-31 12:39 | P.HPIM ---
History of Present Illness 82-year-old pleasant female came in with comments of a shortness of breath on and off patient had a PE on the CAT scan that was done in ER in the lower subsegmental branches in the left side. Patient also has thrombus in the left leg. Patient had PE in the past was on anti-correlation with Coumadin for 2 years after which it was discontinued unsure whether that was a precipitated DVT as per the patient patient doesn't know the cause for her previous DVT. This time patient had a recent travel about 2 days ago from [place] to [place]. Patient is still service short of breath when she ambulates because of which I'll hold her discharged today patient is on IV heparin which will be sent switched to Eliquis, patient is also coming up on and off nonspecific pleuritic chest pain which is not present at this point of time patient was evaluated by cardiology no further intervention from cardiac perspective her chest pain doesn't appear to be cardiac. She denied any fever chills does have history of asthma. Patient is not in asthma exacerbation at this point of time. Review of Systems REVIEW OF SYSTEMS: CONSTITUTIONAL: No fever, no malaise, no fatigue. HEENT: No recent visual problems or hearing problems. Denied any sore throat. CARDIOVASCULAR: No chest pain, orthopnea, PND, no palpitations, no syncope. PULMONARY: As mentioned in HPI GASTROINTESTINAL: No diarrhea, no nausea, no vomiting, no abdominal pain. Normoactive bowel sounds. NEUROLOGICAL: No headaches, no weakness, no numbness. HEMATOLOGICAL: Denies any bleeding or petechiae. GENITOURINARY: Denies any burning micturition, frequency, or urgency. MUSCULOSKELETAL/RHEUMATOLOGICAL: Denies any joint pain, swelling, or any muscle pain. ENDOCRINE: Denies any polyuria or polydipsia. The rest of the 14-point review of systems is negative. Past Medical History Past Medical History: Asthma, COPD, Hypertension, Pulmonary Embolus (PE) Additional Past Medical History / Comment(s): PE 8yrs ago, celiac disease History of Any Multi-Drug Resistant Organisms: None Reported Past Surgical History: Appendectomy, Hysterectomy Past Anesthesia/Blood Transfusion Reactions: No Reported Reaction Past Psychological History: Anxiety Smoking Status: Never smoker Past Alcohol Use History: None Reported Past Drug Use History: None Reported - Past Family History Mother History Unknown: Yes Medications and Allergies Home Medications Medication Instructions Recorded Confirmed Type Albuterol Sulfate [Proventil Hfa] 1 - 2 puff INHALATION RT-Q4H PRN 10/22/16 History Aspirin EC [Ecotrin Low Dose] 81 mg PO DAILY 10/22/16 05/30/18 History Metoprolol Tartrate [Lopressor] 25 mg PO BID 10/22/16 05/30/18 History Montelukast [Singulair] 10 mg PO HS 10/22/16 05/30/18 History Omeprazole [PriLOSEC] 20 mg PO AC-BRKFST 10/22/16 05/30/18 History amLODIPine [Norvasc] 5 mg PO DAILY 10/22/16 05/30/18 History Albuterol Nebulized [Ventolin 2.5 mg INHALATION Q4H PRN 05/30/18 05/30/18 History Nebulized] Calcium Carbonate/Vitamin D3 1 tab PO DAILY 05/30/18 05/30/18 History [Calcium 600-Vit D3 200 Tablet] Chondroitin 1 tab PO HS 05/30/18 05/30/18 History Ferrous Sulfate [Feosol] 325 mg PO DAILY 05/30/18 05/30/18 History Fluticasone/Salmeterol [Advair 1 inhalation PO RT-BID 05/30/18 05/30/18 History 250-50 Diskus] Lansoprazole 30 mg PO DAILY 05/30/18 05/30/18 History Allergies Allergy/AdvReac Type Severity Reaction Status Date / Time orange juice [[place]] Allergy Rash/Hives Verified 05/30/18 18:49 ciprofloxacin AdvReac Diarrhea Verified 05/30/18 18:49 gluten AdvReac Nausea & Verified 05/30/18 18:49 Vomiting & Diarrhea Physical Exam Vitals: Vital Signs Temp Pulse Pulse Resp BP BP Pulse Ox 05/31/18 11:30 75 16 156/70 97 05/31/18 08:55 97.6 F 91 16 148/77 96 05/31/18 04:00 97.8 F 83 18 158/76 96 05/31/18 00:45 97.5 F L 77 18 148/67 93 L 05/30/18 23:54 99.9 F H 77 18 160/79 97 05/30/18 22:16 82 18 165/79 97 08/22/18 20:51 74 18 142/74 97 05/30/18 19:37 83 20 174/77 96 05/30/18 18:40 20 05/30/18 18:09 98.3 F 76 20 179/78 98 Intake and Output 05/30/18 05/31/18 05/31/18 22:59 06:59 14:59 Intake Total 240 Balance 240 Intake: Oral 240 Other: # Voids 1 Weight 65.771 kg 58.5 kg PHYSICAL EXAMINATION: GENERAL: The patient is alert and oriented x3, not in any acute distress. Well developed, well nourished. HEENT: Pupils are round and equally reacting to light. EOMI. No scleral icterus. No conjunctival pallor. Normocephalic, atraumatic. No pharyngeal erythema. No thyromegaly. CARDIOVASCULAR: S1 and S2 present. No murmurs, rubs, or gallops. PULMONARY: Chest is clear to auscultation, no wheezing or crackles. ABDOMEN: Soft, nontender, nondistended, normoactive bowel sounds. No palpable organomegaly. MUSCULOSKELETAL: No joint swelling or deformity. EXTREMITIES: No cyanosis, clubbing, or pedal edema. NEUROLOGICAL: Gross neurological examination did not reveal any focal deficits. SKIN: No rashes. Results CBC & Chem 7: 05/31/18 06:04 05/31/18 06:04 Labs: Abnormal Lab Results - Last 24 Hours (Table) 05/30/18 05/30/18 05/30/18 Range/Units 19:03 19:03 19:03 WBC 13.6 H (3.8-10.6) k/uL Neutrophils # 9.4 H (1.3-7.7) k/uL Monocytes # 1.3 H (0-1.0) k/uL APTT 20.4 L (22.0-30.0) sec D-Dimer 7.64 H (<0.60) mg/L FEU Chloride (98-107) mmol/L BUN 26 H (7-17) mg/dL Glucose 103 H (74-99) mg/dL Total Creatine Kinase (30-135) U/L CK-MB (CK-2) (0.0-2.4) ng/mL Cholesterol (<200) mg/dL LDL Cholesterol, Calc (0-99) mg/dL 05/30/18 05/31/18 05/31/18 Range/Units 19:03 00:59 06:04 WBC (3.8-10.6) k/uL Neutrophils # (1.3-7.7) k/uL Monocytes # (0-1.0) k/uL APTT (22.0-30.0) sec D-Dimer (<0.60) mg/L FEU Chloride (98-107) mmol/L BUN (7-17) mg/dL Glucose (74-99) mg/dL Total Creatine Kinase <20 L 26 L (30-135) U/L CK-MB (CK-2) 2.6 H* (0.0-2.4) ng/mL Cholesterol (<200) mg/dL LDL Cholesterol, Calc (0-99) mg/dL 05/31/18 05/31/18 05/31/18 Range/Units 06:04 06:04 06:04 WBC 13.1 H (3.8-10.6) k/uL Neutrophils # 9.7 H (1.3-7.7) k/uL Monocytes # (0-1.0) k/uL APTT 65.1 H (22.0-30.0) sec D-Dimer (<0.60) mg/L FEU Chloride 108 H (98-107) mmol/L BUN 19 H (7-17) mg/dL Glucose (74-99) mg/dL Total Creatine Kinase (30-135) U/L CK-MB (CK-2) (0.0-2.4) ng/mL Cholesterol 217 H (<200) mg/dL LDL Cholesterol, Calc 148 H (0-99) mg/dL Thrombosis Risk Factor Assmnt - Choose All That Apply Any of the Below Risk Factors Present?: Yes Each Factor Represents 1 point: Abnormal pulmonary function (COPD) Each Risk Factor Represents 3 Points: Age 75 years or older, History of DVT/PE Thrombosis Risk Factor Assessment Total Risk Factor Score: 7 Thrombosis Risk Factor Assessment Level: High Risk Assessment and Plan Plan: -Pulmonary embolism: 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 -Shortness of breath: Secondary to pulmonary embolism -Asthma without any acute exacerbation patient appears to have [id number] intermittent asthma. Continue her home medications -Hypertension: Continue her home medications. Patient probably will be discharged tomorrow if she is hemodynamically stable
--- NOTE | 2018-05-31 13:08 | ECHOF ---
Referral Reason:pe MEASUREMENTS -------- HEIGHT: 182.9 cm WEIGHT: 65.8 kg BP: 158/76 RVIDd: 2.8 cm (< 3.3) IVSd: 1.5 cm (0.6 - 1.1) LVIDd: 3.5 cm (3.9 - 5.3) LVPWd: 1.2 cm (0.6 - 1.1) IVSs: 1.8 cm LVIDs: 2.4 cm LVPWs: 1.6 cm Ao Diam: 2.6 cm (2.0 - 3.7) AV Cusp: 1.8 cm (1.5 - 2.6) LA Diam: 3.6 cm (2.7 - 3.8) MV EXCURSION: 13.991 mm (> 18.000) MV EF SLOPE: 49 mm/s (70 - 150) EPSS: 0.2 cm MV E Nic: 0.56 m/s MV DecT: 240 ms MV A Nic: 0.94 m/s MV E/A Ratio: 0.59 RAP: 5.00 mmHg RVSP: 31.23 mmHg FINDINGS -------- Sinus rhythm. This was a technically adequate study. The left ventricular size is normal. There is moderate concentric left ventricular hypertrophy. O verall left ventricular systolic function is normal with, an EF between 55 - 60 %. The right ventricle is normal in size. The left atrial size is normal. The right atrial size is normal. The aortic valve is trileaflet, and appears structurally normal. No aortic stenosis or regurgitation. The mitral valve is normal. Mild mitral regurgitation is present. Mild tricuspid regurgitation present. There is no evidence of pulmonary hypertension. The right v entricular systolic pressure, as measured by Doppler, is 31.23mmHg. There is no pulmonic regurgitation present. The aortic root size is normal. There is no pericardial effusion. CONCLUSIONS -------- 1. Sinus rhythm. 2. The left ventricular size is normal. 3. There is moderate concentric left ventricular hypertrophy. 4. Overall left ventricular systolic function is normal with, an EF between 55 - 60 %. 5. The left atrial size is normal. 6. The aortic valve is trileaflet, and appears structurally normal. No aortic stenosis or regurgitati on. 7. Mild mitral regurgitation is present. 8. Mild tricuspid regurgitation present. 9. There is no evidence of pulmonary hypertension. 10. There is no pulmonic regurgitation present. 11. The aortic root size is normal. 12. There is no pericardial effusion. DIRECTOR DIGITAL COMMUNICATIONS: Tea Swartz RDCS
[2018-05-31] MEDS: APIXABAN 5 MG TAB PO SCH ×2 (13:37→22:09)
--- NOTE | 2018-05-31 14:14 | P.CONS ---
History of Present Illness - Reason for Consult Consult date: 05/31/18 recurrent PE Requesting physician: Kyara Salinas - Chief Complaint chest pain, TAL, near syncopy - History of Present Illness Mrs. Chan is a very pleasant female with a history of unprovoked PE around 2009, she was on coumadin for about 2 years without complications. Pt has an episode last year where she had symptoms similar to her previous PE-TAL, chest discomfort-but that CTA was negative for PE. She again had symptoms of TAL, chest discomfort, headache and thinks she passed out , she was brought to ER ad found to have LLL PE, doppler for baseline of lower extremities, did identify a DVT of unknown age. Pt states feeling better since admit, on heparin, no bleeding to report, denied recent long travel, prolonged immobility, significant decrease in activity, surgery, she was hospitalized in January for 8 days with pneumonia/asthma exacerbation, she does take steroids rather frequently, denies lymph node swellings, dysphagia, wt. loss, sweats, changes in appetite, bowel or bladder habits. Review of Systems 14 point ROS as stated in HPI Past Medical History Past Medical History: Asthma, COPD, Hypertension, Pulmonary Embolus (PE) Additional Past Medical History / Comment(s): PE 8yrs ago, celiac disease History of Any Multi-Drug Resistant Organisms: None Reported Past Surgical History: Appendectomy, Hysterectomy Past Anesthesia/Blood Transfusion Reactions: No Reported Reaction Past Psychological History: Anxiety Smoking Status: Never smoker Past Alcohol Use History: None Reported Past Drug Use History: None Reported - Past Family History Mother History Unknown: Yes Father Family Medical History: Cancer (lung) Medications and Allergies Home Medications Medication Instructions Recorded Confirmed Type Albuterol Sulfate [Proventil Hfa] 1 - 2 puff INHALATION RT-Q4H PRN 10/22/16 History Aspirin EC [Ecotrin Low Dose] 81 mg PO DAILY 10/22/16 05/30/18 History Metoprolol Tartrate [Lopressor] 25 mg PO BID 10/22/16 05/30/18 History Montelukast [Singulair] 10 mg PO HS 10/22/16 05/30/18 History Omeprazole [PriLOSEC] 20 mg PO AC-BRKFST 10/22/16 05/30/18 History amLODIPine [Norvasc] 5 mg PO DAILY 10/22/16 05/30/18 History Albuterol Nebulized [Ventolin 2.5 mg INHALATION Q4H PRN 05/30/18 05/30/18 History Nebulized] Calcium Carbonate/Vitamin D3 1 tab PO DAILY 05/30/18 05/30/18 History [Calcium 600-Vit D3 200 Tablet] Chondroitin 1 tab PO HS 05/30/18 05/30/18 History Ferrous Sulfate [Feosol] 325 mg PO DAILY 05/30/18 05/30/18 History Fluticasone/Salmeterol [Advair 1 inhalation PO RT-BID 05/30/18 05/30/18 History 250-50 Diskus] Lansoprazole 30 mg PO DAILY 05/30/18 05/30/18 History Allergies Allergy/AdvReac Type Severity Reaction Status Date / Time orange juice [[place]] Allergy Rash/Hives Verified 05/30/18 18:49 ciprofloxacin AdvReac Diarrhea Verified 05/30/18 18:49 gluten AdvReac Nausea & Verified 05/30/18 18:49 Vomiting & Diarrhea Physical Exam Vitals: Vital Signs Temp Pulse Pulse Resp BP BP Pulse Ox 05/31/18 11:30 75 16 156/70 97 05/31/18 08:55 97.6 F 91 16 148/77 96 05/31/18 04:00 97.8 F 83 18 158/76 96 05/31/18 00:45 97.5 F L 77 18 148/67 93 L 05/30/18 23:54 99.9 F H 77 18 160/79 97 05/30/18 22:16 82 18 165/79 97 05/30/18 20:51 74 18 142/74 97 05/30/18 19:37 83 20 174/77 96 05/30/18 18:40 20 05/30/18 18:09 98.3 F 76 20 179/78 98 Intake and Output 05/30/18 05/31/18 05/31/18 22:59 06:59 14:59 Intake Total 240 Balance 240 Intake: Oral 240 Other: # Voids 1 Weight 65.771 kg 58.5 kg - Constitutional General appearance: average body habitus, cooperative, no acute distress - EENT Eyes: anicteric sclerae, EOMI, poor dentition, normal appearance ENT: hearing grossly normal, normal oropharynx - Neck Neck: no lymphadenopathy - Respiratory Respiratory: bilateral: diminished - Cardiovascular Rhythm: regular Heart sounds: normal: S1, S2 leg Peripheral Edema: bilateral: None - Gastrointestinal General gastrointestinal: no absent bowel sounds, no decreased bowel sounds, no distended, no hepatomegaly, no hyperactive bowel sounds, normal bowel sounds, no organomegaly, no rigid, no scaphoid, soft, no splenomegaly, no tenderness, no umbilical hernia, no ventral hernia - Integumentary Integumentary: normal - Neurologic Neurologic: CNII-XII intact - Musculoskeletal Musculoskeletal: strength equal bilaterally - Psychiatric Psychiatric: A&O x's 3, appropriate affect, intact judgment & insight Results CBC & Chem 7: 05/31/18 06:04 05/31/18 06:04 Labs: Abnormal Lab Results - Last 24 Hours (Table) 05/30/18 05/30/18 05/30/18 Range/Units 19:03 19:03 19:03 WBC 13.6 H (3.8-10.6) k/uL Neutrophils # 9.4 H (1.3-7.7) k/uL Monocytes # 1.3 H (0-1.0) k/uL APTT 20.4 L (22.0-30.0) sec D-Dimer 7.64 H (<0.60) mg/L FEU Chloride (98-107) mmol/L BUN 26 H (7-17) mg/dL Glucose 103 H (74-99) mg/dL Total Creatine Kinase (30-135) U/L CK-MB (CK-2) (0.0-2.4) ng/mL Cholesterol (<200) mg/dL LDL Cholesterol, Calc (0-99) mg/dL 05/30/18 05/31/18 05/31/18 Range/Units 19:03 00:59 06:04 WBC (3.8-10.6) k/uL Neutrophils # (1.3-7.7) k/uL Monocytes # (0-1.0) k/uL APTT (22.0-30.0) sec D-Dimer (<0.60) mg/L FEU Chloride (98-107) mmol/L BUN (7-17) mg/dL Glucose (74-99) mg/dL Total Creatine Kinase <20 L 26 L (30-135) U/L CK-MB (CK-2) 2.6 H* (0.0-2.4) ng/mL Cholesterol (<200) mg/dL LDL Cholesterol, Calc (0-99) mg/dL 05/31/18 05/31/18 05/31/18 Range/Units 06:04 06:04 06:04 WBC 13.1 H (3.8-10.6) k/uL Neutrophils # 9.7 H (1.3-7.7) k/uL Monocytes # (0-1.0) k/uL APTT 65.1 H (22.0-30.0) sec D-Dimer (<0.60) mg/L FEU Chloride 108 H (98-107) mmol/L BUN 19 H (7-17) mg/dL Glucose (74-99) mg/dL Total Creatine Kinase (30-135) U/L CK-MB (CK-2) (0.0-2.4) ng/mL Cholesterol 217 H (<200) mg/dL LDL Cholesterol, Calc 148 H (0-99) mg/dL Comments: previous CTA chest from 2017, report reviewed CT scan - chest: report reviewed Venous US: report reviewed Assessment and Plan (1) Deep vein thrombosis (DVT) of left lower extremity Current Visit: Yes Status: Acute Priority: High Code(s): I82.402 - ACUTE EMBOLISM AND THOMBOS UNSP DEEP VEINS OF L LOW EXTREM SNOMED Code(s): 713224927 (2) Pulmonary embolism Current Visit: Yes Status: Acute Priority: High Code(s): I26.99 - OTHER PULMONARY EMBOLISM WITHOUT ACUTE COR PULMONALE SNOMED Code(s): 50257270 Plan: Pt has history of PE 8 years ago diagnosed at outside institution, denies any knowledge of DVT prior. Pt CTA 10/2016 report reviewed with no PE noted. Pt presents with new LLL PE and DVT in LLE. Both situations for blood clots do appear to be unprovoked on questioning the patient. Pt states she is current on her age related cancer screenings. Recommendation is for hypercoaguable work up as this could impact duration of anticoagulation for patient. This was discussed with the pt and she would like to proceed. Will get Rx for pt to have labs drawn and follow up with Dr. Francesca to review results in about 2-3 weeks.
--- NOTE | 2018-05-31 14:59 | P.CNPUL ---
History of Present Illness Consult date: 05/31/18 Reason for consult: dyspnea, pulmonary embolism History of present illness: This is an 82-year-old female patient who came in yesterday to the MRSA problem because of acute shortness of breath that started yesterday. The patient also had chest discomfort over the anterior chest area. The patient had a previous history of pulmonary embolism that was treated through [facility] and this occurred approximately 8-10 years ago. At that time the patient was given anticoagulation with warfarin and subsequently antipronation was taken off. The patient states that she was in [place] and she was then rotated for a total of 10 hours. Apparently there were making frequent stops and she was stretching her legs. Nevertheless, she did not feel any pain or swelling or tenderness in lower extremities. Upon arrival she experienced shortness of breath and the patient came into the MRSA problem where she was found to have an elevated d-dimer. Doppler of the left lower eczematous showed popliteal vein extending to the off and CT angios the chest showed segmental left lower lobe pulmonary embolism. Currently she is on IV heparin. The patient is hemodynamically stable. No hemoptysis. No ongoing pleurisy for now. She has history of bronchial asthma and she has been maintained on Advair and her asthma and her last asthma exacerbation was in January 2018 requiring a prednisone burst taper.. No recent exacerbation of her asthma. She is a nonsmoker. No malignancy. No abdominal distention. No weight loss. No other constitutional symptoms for now. The echocardiogram that was done during this current admission showed a preserved LV function with an ejection fraction of 55-60%. No pulmonary hypertension. No other valvular abnormalities noted. The patient is resting comfortably in bed. She has no specific complaints for now. Pulmonary artery pressure was 31.2 mmHg as measured on the transthoracic echocardiogram. Troponins are negative for now. Review of Systems Constitutional: Denies chills, Denies fever Eyes: denies blurred vision, denies bulging eye, denies decreased vision Ears: deny: decreased hearing, ear discharge, earache, tinnitus Ears, nose, mouth and throat: Denies headache, Denies sore throat Cardiovascular: Reports chest pain, Reports dyspnea on exertion Respiratory: Reports dyspnea Gastrointestinal: Denies abdominal pain, Denies diarrhea, Denies nausea, Denies vomiting Genitourinary: Denies dysuria, Denies hematuria Menstruation: Reports as per HPI Musculoskeletal: Reports as per HPI Musculoskeletal: absent: ankle pain, ankle stiffness, ankle swelling Integumentary: Denies pruritus, Denies rash Neurological: Reports as per HPI Psychiatric: Denies anxiety, Denies depression Endocrine: Reports as per HPI Hematologic/Lymphatic: Reports as per HPI Allergic/Immunologic: Reports as per HPI Past Medical History Past Medical History: Asthma, COPD, Hypertension, Pulmonary Embolus (PE) Additional Past Medical History / Comment(s): Previous history of pulmonary embolism approximately 8 years ago, celiac disease, bronchial asthma, hypertension, acid reflux, History of Any Multi-Drug Resistant Organisms: None Reported Past Surgical History: Appendectomy, Hysterectomy Past Anesthesia/Blood Transfusion Reactions: No Reported Reaction Past Psychological History: Anxiety Smoking Status: Never smoker Past Alcohol Use History: None Reported Past Drug Use History: None Reported - Past Family History Mother History Unknown: Yes Father Family Medical History: Cancer (lung) Medications and Allergies Home Medications Medication Instructions Recorded Confirmed Type Albuterol Sulfate [Proventil Hfa] 1 - 2 puff INHALATION RT-Q4H PRN 10/22/16 History Aspirin EC [Ecotrin Low Dose] 81 mg PO DAILY 10/22/16 05/30/18 History Metoprolol Tartrate [Lopressor] 25 mg PO BID 10/22/16 05/30/18 History Montelukast [Singulair] 10 mg PO HS 10/22/16 05/30/18 History Omeprazole [PriLOSEC] 20 mg PO AC-BRKFST 10/22/16 05/30/18 History amLODIPine [Norvasc] 5 mg PO DAILY 10/22/16 05/30/18 History Albuterol Nebulized [Ventolin 2.5 mg INHALATION Q4H PRN 05/30/18 05/30/18 History Nebulized] Calcium Carbonate/Vitamin D3 1 tab PO DAILY 05/30/18 05/30/18 History [Calcium 600-Vit D3 200 Tablet] Chondroitin 1 tab PO HS 05/30/18 05/30/18 History Ferrous Sulfate [Feosol] 325 mg PO DAILY 05/30/18 05/30/18 History Fluticasone/Salmeterol [Advair 1 inhalation PO RT-BID 05/30/18 05/30/18 History 250-50 Diskus] Lansoprazole 30 mg PO DAILY 05/30/18 05/30/18 History Allergies Allergy/AdvReac Type Severity Reaction Status Date / Time orange juice [[place]] Allergy Rash/Hives Verified 05/30/18 18:49 ciprofloxacin AdvReac Diarrhea Verified 05/30/18 18:49 gluten AdvReac Nausea & Verified 05/30/18 18:49 Vomiting & Diarrhea Physical Exam Vitals: Vital Signs Temp Pulse Pulse Resp BP BP Pulse Ox 05/31/18 11:30 75 16 156/70 97 05/31/18 08:55 97.6 F 91 16 148/77 96 05/31/18 04:00 97.8 F 83 18 158/76 96 05/31/18 00:45 97.5 F L 77 18 148/67 93 L 05/30/18 23:54 99.9 F H 77 18 160/79 97 05/30/18 22:16 82 18 165/79 97 05/30/18 20:51 74 18 142/74 97 05/30/18 19:37 83 20 174/77 96 05/30/18 18:40 20 05/30/18 18:09 98.3 F 76 20 179/78 98 Intake and Output 05/30/18 05/31/18 05/31/18 22:59 06:59 14:59 Intake Total 480 Balance 480 Intake: Oral 480 Other: # Voids 1 1 Weight 65.771 kg 58.5 kg The patient appeared well nourished and normally developed. Vital signs as documented. Head exam is unremarkable. No scleral icterus or corneal arcus noted. Neck is without jugular venous distension, thyromegaly, or carotid bruits. Carotid upstrokes are brisk bilaterally. Lungs are clear to auscultation and percussion. Cardiac exam reveals the PMI to be normally sized and situated. Rhythm is regular. First and second heart sounds normal. No murmurs, rubs or gallops. Abdominal exam reveals normal bowel sounds, no masses , no organomegaly and no aortic enlargement. Extremities are nonedematous and both femoral and pedal pulses are normal.Examination of the skin revealed no evidence of significant rashes, suspicious appearing nevi or other concerning lesions. Neurologically the patient is awake and alert and there is no focal neurological deficits. Results - Laboratory Findings CBC and BMP: 05/31/18 06:04 05/31/18 06:04 PT/INR, D-dimer PT 9.5 sec (9.0-12.0) 05/30/18 19:03 INR 1.0 (<1.2) 05/30/18 19:03 D-Dimer 7.64 mg/L FEU (<0.60) H 05/30/18 19:03 Abnormal lab findings: Abnormal Labs 05/30/18 05/30/18 05/30/18 19:03 19:03 19:03 WBC 13.6 H Neutrophils # 9.4 H Monocytes # 1.3 H APTT 20.4 L D-Dimer 7.64 H Chloride BUN 26 H Glucose 103 H Total Creatine Kinase CK-MB (CK-2) Cholesterol LDL Cholesterol, Calc 05/30/18 05/31/18 05/31/18 19:03 00:59 06:04 WBC Neutrophils # Monocytes # APTT D-Dimer Chloride BUN Glucose Total Creatine Kinase <20 L 26 L CK-MB (CK-2) 2.6 H* Cholesterol LDL Cholesterol, Calc 05/31/18 05/31/18 05/31/18 06:04 06:04 06:04 WBC 13.1 H Neutrophils # 9.7 H Monocytes # APTT 65.1 H D-Dimer Chloride 108 H BUN 19 H Glucose Total Creatine Kinase CK-MB (CK-2) Cholesterol 217 H LDL Cholesterol, Calc 148 H - Diagnostic Findings CT scan - chest: image reviewed Assessment and Plan Plan: Assessment 1 acute left lower lobe pulmonary embolism, segmental in addition to her left lower extremity DVT. The patient was in a long road trip coming from [place]. She has a previous history of pulmonary embolism that occurred approximately 8 years ago. She is currently on IV heparin. No right ventricular strain pattern on echocardiogram. No troponin leak. Hemodynamically stable. Shortness of breath is improved and the patient is symptomatic at this point in time. 2 bronchial asthma maintained on Advair on outpatient basis 3 celiac disease 4 hypertension 5 acid reflux Plan Stop the anticoagulation move this patient to oral anticoagulants either in the form of Xarelto or Eliquis. Monitor the patient here in the hospital for another 24 hours. This will be a long-term and to coagulation due to recurrent nature of the patient's pulmonary embolism. She is hemodynamic is stable. No strain pattern. No RV dysfunction. No troponin leak. This is a low-risk pulmonary embolism. She does have a left lower extremity DVT. She'll continue Advair. Resume outpatient medication and the patient would likely discharged home with the next 24 hours.
[2018-05-31] MEDS ORDERED: MONTELUKAST 10 MG TAB PO SCH (21:00)
[2018-05-31] MEDS ORDERED: CHONDROITIN PO SCH (21:00)
[2018-06-01] MEDS: SYMBICORT 80-4.5 MCG INHALER INHALATION SCH (02:38)
[2018-06-01] MEDS: SODIUM CHLORIDE 0.9% 1,000 ML IV SCH (02:39)
[2018-06-01 06:58] VITALS: BP 142/79; PULSE 77; TEMP 97.4
[2018-06-01] MEDS: METOPROLOL TARTRATE 25 MG TAB PO SCH (07:57)
[2018-06-01] MEDS: FERROUS SULFATE 325 MG TAB PO SCH (07:57)
[2018-06-01] MEDS: ASPIRIN 81 MG PO SCH (07:57)
[2018-06-01] MEDS: amLODIPine 5 MG TAB PO SCH (07:57)
[2018-06-01] MEDS: PANTOPRAZOLE 40 MG TABLET PO SCH (07:57)
[2018-06-01] MEDS: CALCIUM CARB-VIT D 500MG-200UN 1 EACH TAB PO SCH (07:57)
[2018-06-01] MEDS: ATORVASTATIN 80 MG TAB PO SCH (07:58)
[2018-06-01] MEDS: APIXABAN 5 MG TAB PO SCH (07:58)
[2018-06-01 09:48] LABS: Basophils % (A) 0 %; Eosinophils # (A) 0.1 k/uL (0-0.7); Eosinophils % (A) 1 %; HCT 44.3 % (34.0-46.0); HGB 14.2 gm/dL (11.4-16.0); Lymphocytes # (A) 1.6 k/uL (1.0-4.8); Lymphocytes % (A) 13 %; MCV 87.5 fL (80.0-100.0); Mean Platelet Volume 6.9; Monocytes # (A) 0.8 k/uL (0-1.0); Monocytes % (A) 6 %; Neutrophils # (A) 9.8 k/uL (1.3-7.7); Neutrophils % (A) 79 %; Platelet Count 246 k/uL (150-450); RBC 5.07 m/uL (3.80-5.40); RDW 15.1 % (11.5-15.5); WBC 12.5 k/uL (3.8-10.6)
--- NOTE | 2018-06-01 09:51 | P.PN ---
Subjective This is a pleasant 82-year-old female past medical history significant for COPD, hypertension, prior PE and asthma. She presented to the hospital with chest discomfort and syncope. She has been diagnosed with pulmonary embolus and left lower extremity DVT. Currently maintained on Eliquis 10 mg twice a day. Echo obtained left ventricular systolic function preserved with ejection fraction 55-60%, mild MR and mild TR noted. No right ventricular strain. Blood pressure 142/70 977 afebrile maintaining oxygen saturation on room air. She denies symptoms of chest pain, shortness of breath , dizziness or palpitations. Telemetry tracings indicate sinus mechanism with no significant arrhythmia noted. Objective - Vital Signs Vital signs: Vital Signs Temp 97.4 F L 06/01/18 06:57 Pulse 77 06/01/18 06:57 Resp 16 06/01/18 06:57 BP 142/79 06/01/18 06:57 Pulse Ox 95 06/01/18 06:57 Intake & Output 05/31/18 06/01/18 06/01/18 18:59 06:59 18:59 Intake Total 480 Balance 480 Intake: Oral 480 Other: # Voids 1 2 - Exam GENERAL: Well-appearing, well-nourished and in no acute distress. NECK: Supple without JVD or thyromegaly. LUNGS: Breath sounds clear to auscultation bilaterally. Respiration equal and unlabored. No wheezes, rales or rhonchi. HEART: Regular rate and rhythm without murmurs, rubs or gallops. S1 and S2 heard. EXTREMITIES: Normal range of motion, no edema. No clubbing or cyanosis. Peripheral pulses intact. - Labs CBC & Chem 7: 05/31/18 06:04 05/31/18 06:04 Assessment and Plan Assessment: ASSESSMENT Pulmonary embolism, on oral anticoagulation Left lower extremity DVT Hypertension COPD Asthma PLAN Stable from a cardiac perspective. No further cardiac workup required at this time. Follow-up with Dr. Walls in 2-3 weeks. Nurse Practitioner note has been reviewed, I agree with a documented findings and plan of care. Patient was seen and examined.
[2018-06-01 10:18] LABS: Calcium 9.4 mg/dL (8.4-10.2); Potassium 4.2 mmol/L (3.5-5.1)
--- NOTE | 2018-06-01 14:24 | P.PN ---
Subjective Progress Note Date: 06/01/18 This is an 82-year-old female patient who came in yesterday to the MRSA problem because of acute shortness of breath that started yesterday. The patient also had chest discomfort over the anterior chest area. The patient had a previous history of pulmonary embolism that was treated through [facility] and this occurred approximately 8-10 years ago. At that time the patient was given anticoagulation with warfarin and subsequently antipronation was taken off. The patient states that she was in [place] and she was then rotated for a total of 10 hours. Apparently there were making frequent stops and she was stretching her legs. Nevertheless, she did not feel any pain or swelling or tenderness in lower extremities. Upon arrival she experienced shortness of breath and the patient came into the MRSA problem where she was found to have an elevated d-dimer. Doppler of the left lower eczematous showed popliteal vein extending to the off and CT angios the chest showed segmental left lower lobe pulmonary embolism. Currently she is on IV heparin. The patient is hemodynamically stable. No hemoptysis. No ongoing pleurisy for now. She has history of bronchial asthma and she has been maintained on Advair and her asthma and her last asthma exacerbation was in January 2018 requiring a prednisone burst taper.. No recent exacerbation of her asthma. She is a nonsmoker. No malignancy. No abdominal distention. No weight loss. No other constitutional symptoms for now. The echocardiogram that was done during this current admission showed a preserved LV function with an ejection fraction of 55-60%. No pulmonary hypertension. No other valvular abnormalities noted. The patient is resting comfortably in bed. She has no specific complaints for now. Pulmonary artery pressure was 31.2 mmHg as measured on the transthoracic echocardiogram. Troponins are negative for now. On 06/01/2018, patient is hemodynamically stable, on the medical floor, off IV heparin, on oral anticoagulant, the choice was Eliquis 10 mg by mouth twice a day regarding DVT and pulmonary embolism. No hemoptysis. No chest pain. No other complaints otherwise for now. She is ambulating in the hallway. No chest pain. No pleurisy. No shortness of breath. Objective - Vital Signs Vital signs: Vital Signs Temp 97.4 F L 06/01/18 06:57 Pulse 77 06/01/18 06:57 Resp 16 06/01/18 08:00 BP 142/79 06/01/18 06:57 Pulse Ox 95 06/01/18 06:57 Intake & Output 05/31/18 06/01/18 06/01/18 18:59 06:59 18:59 Intake Total 480 Balance 480 Intake: Oral 480 Other: Voiding Method Toilet # Voids 1 2 3 - Exam The patient appeared well nourished and normally developed. Vital signs as documented. Head exam is unremarkable. No scleral icterus or corneal arcus noted. Neck is without jugular venous distension, thyromegaly, or carotid bruits. Carotid upstrokes are brisk bilaterally. Lungs are clear to auscultation and percussion. Cardiac exam reveals the PMI to be normally sized and situated. Rhythm is regular. First and second heart sounds normal. No murmurs, rubs or gallops. Abdominal exam reveals normal bowel sounds, no masses , no organomegaly and no aortic enlargement. Extremities are nonedematous and both femoral and pedal pulses are normal.Examination of the skin revealed no evidence of significant rashes, suspicious appearing nevi or other concerning lesions. Neurologically the patient is awake and alert and there is no focal neurological deficits. - Labs CBC & Chem 7: 06/01/18 08:54 06/01/18 08:54 Labs: Abnormal Lab Results - Last 24 Hours (Table) 06/01/18 06/01/18 Range/Units 08:54 08:54 WBC 12.5 H (3.8-10.6) k/uL Neutrophils # 9.8 H (1.3-7.7) k/uL Glucose 132 H (74-99) mg/dL Assessment and Plan Plan: Assessment 1 acute left lower lobe pulmonary embolism, segmental in addition to her left lower extremity DVT. The patient was in a long road trip coming from [place]. She has a previous history of pulmonary embolism that occurred approximately 8 years ago. She is currently on IV heparin. No right ventricular strain pattern on echocardiogram. No troponin leak. Hemodynamically stable. Shortness of breath is improved and the patient is symptomatic at this point in time. 2 bronchial asthma maintained on Advair on outpatient basis 3 celiac disease 4 hypertension 5 acid reflux Plan Continue Eliquis and drop the dose to 5 mg by mouth twice a day in 1 week time. Long-term anticoagulation. Outpatient follow-up. Clear for discharge from the pulmonary standpoint.
--- NOTE | 2018-06-01 15:07 | P.PN ---
Subjective Progress Note Date: 06/01/18 Principal diagnosis: Pulmonary Embolism - recurrent Patient seen and examined in follow-up. She is feeling good and has questions about eliquis. Objective - Vital Signs Vital signs: Vital Signs Temp 97.4 F L 06/01/18 06:57 Pulse 77 06/01/18 06:57 Resp 16 06/01/18 08:00 BP 142/79 06/01/18 06:57 Pulse Ox 95 06/01/18 06:57 Intake & Output 05/31/18 06/01/18 06/01/18 18:59 06:59 18:59 Intake Total 480 Balance 480 Intake: Oral 480 Other: Voiding Method Toilet # Voids 1 2 3 - Constitutional General appearance: Present: cooperative, no acute distress - EENT Eyes: Present: EOMI, PERRLA, dentition normal ENT: Present: NA/AT, normal oropharynx - Neck Neck: Present: normal ROM - Respiratory Respiratory: bilateral: CTA - Cardiovascular Rhythm: regular Heart sounds: normal: S1, S2 - Gastrointestinal General gastrointestinal: Present: normal bowel sounds, soft - Integumentary Integumentary: Present: pale - Neurologic Neurologic: Present: CNII-XII intact - Musculoskeletal Musculoskeletal: Present: gait normal, generalized weakness, strength equal bilaterally - Psychiatric Psychiatric: Present: A&O x's 3, appropriate affect, intact judgment & insight - Labs CBC & Chem 7: 06/01/18 08:54 06/01/18 08:54 Labs: Abnormal Lab Results - Last 24 Hours (Table) 06/01/18 06/01/18 Range/Units 08:54 08:54 WBC 12.5 H (3.8-10.6) k/uL Neutrophils # 9.8 H (1.3-7.7) k/uL Glucose 132 H (74-99) mg/dL Assessment and Plan Plan: Assessment and Recommendations: 1. Recurrent Thrombotic Events: - Discussed the recommendation of lifelong anticoagulation therapy - Discussed treatment with eliquis and risks and benefits, all questions answered - Patient given a prescripotion to obtain hypercoagulable work-up at discharge and will follow-up as out patient to see Dr. Ma in 3 weeks.
--- NOTE | 2018-06-01 20:10 | P.DS ---
Providers Date of admission: 05/30/18 21:13 Expected date of discharge: 06/01/18 Attending physician: Geronimo Meraz Consults: 05/30/18 21:12 Consult Physician Urgent Consulting Provider: Georgi Simmons Consult Reason/Comments: cp Do you want consulting provider notified?: Yes 05/30/18 23:14 Consult Physician Routine Consulting Provider: Albert Krueger Consult Reason/Comments: pe Do you want consulting provider notified?: Yes 05/31/18 14:51 Consult Physician Routine Consulting Provider: Cristiano Ma Consult Reason/Comments: Recurrent DVT Do you want consulting provider notified?: Already Contacted Primary care physician: Malgorzata Kaplan [facility] Course: Final Diagnoses: -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 -Shortness of breath: Secondary to pulmonary embolism -Asthma without any acute exacerbation patient appears to have [id number] intermittent asthma. -Hypertension: Hospital course:82-year-old pleasant female came in with comments of a shortness of breath on and off patient had a PE on the CAT scan that was done in ER in the lower subsegmental branches in the left side. Patient also has thrombus in the left leg. Patient had PE in the past was on anti-correlation with Coumadin for 2 years after which it was discontinued unsure whether that was a precipitated DVT as per the patient patient doesn't know the cause for her previous DVT. This time patient had a recent travel about 2 days ago from [place] to [place]. Patient is still service short of breath when she ambulates because of which I'll hold her discharged today patient is on IV heparin which will be sent switched to Eliquis, patient is also coming up on and off nonspecific pleuritic chest pain which is not present at this point of time patient was evaluated by cardiology no further intervention from cardiac perspective her chest pain doesn't appear to be cardiac. She denied any fever chills does have history of asthma. Patient is not in asthma exacerbation at this point of time. Anticoagulation Converted to Eliquis. Case management confirmed outpatient prescription coverage. Denies chest pain, palpitations or shortness of breath. Evaluated by hematology, cardiology and pulmonary,Patient has been cleared by all consults for discharge. Significant clinical improvement. Patient is being discharged home in a stable condition with guarded prognosis. EXAMINATION: GENERAL: The patient is alert and oriented x3, not in any acute distress. CARDIOVASCULAR: S1 and S2 present. No murmurs, rubs, or gallops. PULMONARY: Chest is clear to auscultation, no wheezing or crackles. ABDOMEN: Soft, nontender, nondistended, normoactive bowel sounds. No palpable organomegaly. NEUROLOGICAL: Gross neurological examination did not reveal any focal deficits. The impression and plan of care has been dictated as directed. : I performed a history and examination of this patient, discussed the same with the dictator. I agree with the dictator's note ,documented as a scribe. Any additional findings or plans will be noted. Time taken: 35 minutes. Patient Condition at Discharge: Stable Plan - Discharge Summary New Discharge Prescriptions: New Apixaban [Eliquis] 10 mg PO BID #72 tab Acetaminophen Tab [Tylenol] 500 mg PO Q6HR PRN tab PRN Reason: Fever And/ Or Pain Atorvastatin Calcium [Lipitor] 20 mg PO HS #30 tab Continue Aspirin EC [Ecotrin Low Dose] 81 mg PO DAILY Omeprazole [PriLOSEC] 20 mg PO AC-BRKFST Montelukast [Singulair] 10 mg PO HS amLODIPine [Norvasc] 5 mg PO DAILY Metoprolol Tartrate [Lopressor] 25 mg PO BID Albuterol Sulfate [Proventil Hfa] 1 - 2 puff INHALATION RT-Q4H PRN PRN Reason: Shortness Of Breath Albuterol Nebulized [Ventolin Nebulized] 2.5 mg INHALATION Q4H PRN PRN Reason: Shortness Of Breath Calcium Carbonate/Vitamin D3 [Calcium 600-Vit D3 200 Tablet] 1 tab PO DAILY Ferrous Sulfate [Feosol] 325 mg PO DAILY Fluticasone/Salmeterol [Advair 250-50 Diskus] 1 inhalation PO RT-BID Lansoprazole 30 mg PO DAILY Chondroitin 1 tab PO HS Discharge Medication List Albuterol Sulfate [Proventil Hfa] 1 - 2 puff INHALATION RT-Q4H PRN 10/22/16 [ History] Aspirin EC [Ecotrin Low Dose] 81 mg PO DAILY 10/22/16 [History] Metoprolol Tartrate [Lopressor] 25 mg PO BID 10/22/16 [History] Montelukast [Singulair] 10 mg PO HS 10/22/16 [History] Omeprazole [PriLOSEC] 20 mg PO AC-BRKFST 10/22/16 [History] amLODIPine [Norvasc] 5 mg PO DAILY 10/22/16 [History] Albuterol Nebulized [Ventolin Nebulized] 2.5 mg INHALATION Q4H PRN 05/30/18 [ History] Calcium Carbonate/Vitamin D3 [Calcium 600-Vit D3 200 Tablet] 1 tab PO DAILY [History] Chondroitin 1 tab PO HS 05/30/18 [History] Ferrous Sulfate [Feosol] 325 mg PO DAILY 05/30/18 [History] Fluticasone/Salmeterol [Advair 250-50 Diskus] 1 inhalation PO RT-BID 05/30/18 [ History] Lansoprazole 30 mg PO DAILY 05/30/18 [History] Acetaminophen Tab [Tylenol] 500 mg PO Q6HR PRN tab 06/01/18 [Rx] Apixaban [Eliquis] 10 mg PO BID #72 tab 06/01/18 [Rx] Atorvastatin Calcium [Lipitor] 20 mg PO HS #30 tab 06/01/18 [Rx] Follow up Appointment(s)/Referral(s): Cristiano Ma MD [STAFF PHYSICIAN] - 07/06/18 9:00 am (recurrent PE, hematology work -up) Damian Walls MD [STAFF PHYSICIAN] - 06/15/18 3:15 pm Malgorzata Kaplan, [Primary Care Provider] - 06/06/18 8:45 am Ambulatory/Diagnostic Orders: Complete Blood Count w/diff [LAB.AMB] Time Frame: 3 Days, Location: None Selected Patient Instructions/Handouts: Chest Pain (ED), Pulmonary Embolism (DC), Deep Venous Thrombosis (DC) Discharge Disposition: HOME SELF-CARE
== END 2018-06-01 14:34 | disposition home or self-care (01) | DRG 176 ==
LOC: EC 18:05 → 6SEL 21:13 → 4MS4W 05-31 16:03
PROVIDERS: ADMIT Hospitalist; ATTEND Hospitalist
DX: I26.99 Other pulmonary embolism without acute cor pulmonale (principal); I82.402 Acute embolism and thrombosis of unspecified deep veins of left lower extremity; K90.0 Celiac disease; J44.9 Chronic obstructive pulmonary disease, unspecified; F41.9 Anxiety disorder, unspecified; I10 Essential (primary) hypertension; J45.20 Mild intermittent asthma, uncomplicated; K21.9 Gastro-esophageal reflux disease without esophagitis; I25.2 Old myocardial infarction; Z86.711 Personal history of pulmonary embolism; Z90.710 Acquired absence of both cervix and uterus; Z90.49 Acquired absence of other specified parts of digestive tract; Z86.718 Personal history of other venous thrombosis and embolism; Z88.1 Allergy status to other antibiotic agents; Z91.018 Allergy to other foods; Z79.82 Long term (current) use of aspirin; Z79.899 Other long term (current) drug therapy; Z79.51 Long term (current) use of inhaled steroids
CPT/HCPCS: 36415; 71046; 71275; 80048; 80053; 80061; 82550; 82553; 83735; 83880; 84484; 85025; 85379; 85610; 85730; 93005; 93306; 93970; 96365; 96366; 96376; 99291

== ENCOUNTER 2018-06-02 16:27 | Emergency (ER) | payer MEDICARE ==
--- NOTE | 2018-06-02 17:09 | ED ---
Weakness HPI - General Chief complaint: Weakness Stated complaint: Weakness Time Seen by Provider: 06/02/18 16:50 Source: patient, RN notes reviewed Mode of arrival: ambulatory Limitations: no limitations - History of Present Illness Initial comments: This is a 82-year-old female who was just discharged from the hospital in the past 2 days after being diagnosed with pulmonary embolism who is back today because of 2 falls since this morning she states she is camping and was in a camper and twice she fell because she suddenly became very weak and couldn't hold herself up. She did sustain a small right lip laceration and bruise her right upper extremity she denies any head neck or back pain blurry vision focal weakness no palpitations no other complaints at this time. She is on a blood thinner. She voices no other complaints or modifying factors at this time MD Complaint: generalized weakness - Related Data Home Medications Medication Instructions Recorded Confirmed Albuterol Sulfate [Proventil Hfa] 1 - 2 puff INHALATION RT-Q4H PRN 10/22/16 Aspirin EC [Ecotrin Low Dose] 81 mg PO DAILY 10/22/16 06/02/18 Metoprolol Tartrate [Lopressor] 25 mg PO BID 10/22/16 06/02/18 Montelukast [Singulair] 10 mg PO HS 10/22/16 06/02/18 Omeprazole [PriLOSEC] 20 mg PO AC-BRKFST 10/22/16 06/02/18 amLODIPine [Norvasc] 5 mg PO DAILY 10/22/16 06/02/18 Albuterol Nebulized [Ventolin 2.5 mg INHALATION RT-Q4H PRN 05/30/18 06/02/18 Nebulized] Calcium Carbonate/Vitamin D3 1 tab PO DAILY 05/30/18 06/02/18 [Calcium 600-Vit D3 200 Tablet] Chondroitin 1 tab PO HS 05/30/18 06/02/18 Ferrous Sulfate [Feosol] 325 mg PO DAILY 05/30/18 06/02/18 Fluticasone/Salmeterol [Advair 1 puff INHALATION RT-BID 05/30/18 06/02/18 250-50 Diskus] Lansoprazole 30 mg PO DAILY 05/30/18 06/02/18 Previous Rx's Medication Instructions Recorded Acetaminophen Tab [Tylenol] 500 mg PO Q6HR PRN tab 06/01/18 Apixaban [Eliquis] 10 mg PO BID #72 tab 06/01/18 Atorvastatin Calcium [Lipitor] 20 mg PO HS #30 tab 06/01/18 Allergies Allergy/AdvReac Type Severity Reaction Status Date / Time orange juice [Winder] Allergy Rash/Hives Verified 06/02/18 16:48 ciprofloxacin AdvReac Diarrhea Verified 06/02/18 16:48 gluten AdvReac Nausea & Verified 06/02/18 16:48 Vomiting & Diarrhea Review of Systems ROS Statement: Those systems with pertinent positive or pertinent negative responses have been documented in the HPI. ROS Other: All systems not noted in ROS Statement are negative. Past Medical History Past Medical History: Asthma, COPD, Hypertension, Pulmonary Embolus (PE) Additional Past Medical History / Comment(s): Previous history of pulmonary embolism approximately 8 years ago, celiac disease, bronchial asthma, hypertension, acid reflux, History of Any Multi-Drug Resistant Organisms: None Reported Past Surgical History: Appendectomy, Hysterectomy Past Anesthesia/Blood Transfusion Reactions: No Reported Reaction Past Psychological History: Anxiety Smoking Status: Never smoker Past Alcohol Use History: None Reported Past Drug Use History: None Reported - Past Family History Mother History Unknown: Yes Father Family Medical History: Cancer (lung) General Exam - General Exam Comments Initial Comments: This is a well-developed well-nourished awake alert oriented 3 female who does demonstrate a Eber Coma Scale of 15 Limitations: no limitations General appearance: alert, in no apparent distress Head exam: Present: atraumatic, normocephalic, normal inspection Eye exam: Present: normal appearance, PERRL, EOMI. Absent: scleral icterus, conjunctival injection, periorbital swelling ENT exam: Present: normal exam, mucous membranes moist Neck exam: Present: normal inspection, full ROM. Absent: tenderness, meningismus, lymphadenopathy Respiratory exam: Present: normal lung sounds bilaterally. Absent: respiratory distress, wheezes, rales, rhonchi, stridor Cardiovascular Exam: Present: regular rate, normal rhythm, normal heart sounds. Absent: systolic murmur, diastolic murmur, rubs, gallop, clicks GI/Abdominal exam: Present: soft, normal bowel sounds. Absent: distended, tenderness, guarding, rebound, rigid Extremities exam: Present: full ROM, tenderness (Slight tenderness and ecchymosis seen over the right upper extremity no step-off or crepitation. Range of motion noted to be normal. There is mild tenderness over the gluteus on the right. No pelvic rock tenderness.), normal capillary refill. Absent: pedal edema, joint swelling, calf tenderness Back exam: Present: normal inspection Neurological exam: Present: alert, oriented X3, CN II-XII intact Psychiatric exam: Present: normal affect, normal mood Skin exam: Present: warm, dry, intact, normal color. Absent: rash Course Vital Signs 06/02/18 06/02/18 06/02/18 16:30 17:41 18:31 Temperature 98.2 F Pulse Rate 82 85 93 Respiratory 18 18 16 Rate Blood Pressure 143/77 159/74 164/75 O2 Sat by Pulse 96 97 95 Oximetry - Reevaluation(s) Reevaluation #1: 06/02/18 17:12 Patient states her last tetanus shot was 3 years ago EKG Findings - EKG Results: EKG: interpreted by COLLIN, sinus rhythm (Normal sinus rhythm of 83. We'll 144 QRS 64 QT since QTC 360/423 this is a normal-appearing EKG.) Medical Decision Making - Medical Decision Making I did discuss the findings with the patient reevaluation finds her to be awake alert oriented 3 no distress she has she states she feels better she did walk in emergency department without any difficulty whatsoever. After discussion with her and her family members she will be discharged I did recommend she increase her oral fluid content. Keep her follow-up appointments and return when necessary complains some right-sided buttock pain from her fall no clinical evidence of fractures - Lab Data Result diagrams: 06/02/18 17:12 06/02/18 17:12 Lab Results 06/02/18 06/02/18 06/02/18 Range/Units 17:12 17:12 17:12 WBC 12.9 H (3.8-10.6) k/uL RBC 4.92 (3.80-5.40) m/uL Hgb 13.6 (11.4-16.0) gm/dL Hct 42.8 (34.0-46.0) % MCV 86.9 (80.0-100.0) fL MCH 27.7 (25.0-35.0) pg MCHC 31.9 (31.0-37.0) g/dL RDW 15.0 (11.5-15.5) % Plt Count 235 (150-450) k/uL Neutrophils % 75 % Lymphocytes % 15 % Monocytes % 7 % Eosinophils % 1 % Basophils % 0 % Neutrophils # 9.7 H (1.3-7.7) k/uL Lymphocytes # 1.9 (1.0-4.8) k/uL Monocytes # 0.9 (0-1.0) k/uL Eosinophils # 0.1 (0-0.7) k/uL Basophils # 0.0 (0-0.2) k/uL PT (9.0-12.0) sec INR (<1.2) APTT (22.0-30.0) sec Sodium 138 (137-145) mmol/L Potassium 4.4 (3.5-5.1) mmol/L Chloride 105 (98-107) mmol/L Carbon Dioxide 24 (22-30) mmol/L Anion Gap 9 mmol/L BUN 22 H (7-17) mg/dL Creatinine 0.80 (0.52-1.04) mg/dL Est GFR (CKD-EPI)AfAm 80 (>60 ml/min/1.73 sqM) Est GFR (CKD-EPI)NonAf 70 (>60 ml/min/1.73 sqM) Glucose 102 H (74-99) mg/dL Plasma Lactic Acid Kaiden (0.7-2.0) mmol/L Calcium 9.4 (8.4-10.2) mg/dL Magnesium 1.9 (1.6-2.3) mg/dL Total Bilirubin 0.4 (0.2-1.3) mg/dL AST 29 (14-36) U/L ALT 44 (9-52) U/L Alkaline Phosphatase 65 (38-126) U/L Total Creatine Kinase 73 (30-135) U/L CK-MB (CK-2) 3.5 H* (0.0-2.4) ng/mL CK-MB (CK-2) Rel Index 4.8 Troponin I <0.012 (0.000-0.034) ng/mL NT-Pro-B Natriuret Pep pg/mL Total Protein 6.3 (6.3-8.2) g/dL Albumin 3.7 (3.5-5.0) g/dL Urine Color Urine Appearance (Clear) Urine pH (5.0-8.0) Ur Specific Harrison (1.001-1.035) Urine Protein (Negative) Urine Glucose (UA) (Negative) Urine Ketones (Negative) Urine Blood (Negative) Urine Nitrite (Negative) Urine Bilirubin (Negative) Urine Urobilinogen (<2.0) mg/dL Ur Leukocyte Esterase (Negative) Urine WBC (0-5) /hpf Ur Squamous Epith Cells (0-4) /hpf Urine Bacteria (None) /hpf Urine Mucus (None) /hpf 06/02/18 06/02/18 06/02/18 Range/Units 17:12 17:12 17:12 WBC (3.8-10.6) k/uL RBC (3.80-5.40) m/uL Hgb (11.4-16.0) gm/dL Hct (34.0-46.0) % MCV (80.0-100.0) fL MCH (25.0-35.0) pg MCHC (31.0-37.0) g/dL RDW (11.5-15.5) % Plt Count (150-450) k/uL Neutrophils % % Lymphocytes % % Monocytes % % Eosinophils % % Basophils % % Neutrophils # (1.3-7.7) k/uL Lymphocytes # (1.0-4.8) k/uL Monocytes # (0-1.0) k/uL Eosinophils # (0-0.7) k/uL Basophils # (0-0.2) k/uL PT 10.4 (9.0-12.0) sec INR 1.1 (<1.2) APTT 23.2 (22.0-30.0) sec Sodium (137-145) mmol/L Potassium (3.5-5.1) mmol/L Chloride (98-107) mmol/L Carbon Dioxide (22-30) mmol/L Anion Gap mmol/L BUN (7-17) mg/dL Creatinine (0.52-1.04) mg/dL Est GFR (CKD-EPI)AfAm (>60 ml/min/1.73 sqM) Est GFR (CKD-EPI)NonAf (>60 ml/min/1.73 sqM) Glucose (74-99) mg/dL Plasma Lactic Acid Kaiden 1.4 (0.7-2.0) mmol/L Calcium (8.4-10.2) mg/dL Magnesium (1.6-2.3) mg/dL Total Bilirubin (0.2-1.3) mg/dL AST (14-36) U/L ALT (9-52) U/L Alkaline Phosphatase (38-126) U/L Total Creatine Kinase (30-135) U/L CK-MB (CK-2) (0.0-2.4) ng/mL CK-MB (CK-2) Rel Index Troponin I (0.000-0.034) ng/mL NT-Pro-B Natriuret Pep 239 pg/mL Total Protein (6.3-8.2) g/dL Albumin (3.5-5.0) g/dL Urine Color Urine Appearance (Clear) Urine pH (5.0-8.0) Ur Specific Harrison (1.001-1.035) Urine Protein (Negative) Urine Glucose (UA) (Negative) Urine Ketones (Negative) Urine Blood (Negative) Urine Nitrite (Negative) Urine Bilirubin (Negative) Urine Urobilinogen (<2.0) mg/dL Ur Leukocyte Esterase (Negative) Urine WBC (0-5) /hpf Ur Squamous Epith Cells (0-4) /hpf Urine Bacteria (None) /hpf Urine Mucus (None) /hpf 06/02/18 Range/Units 17:36 WBC (3.8-10.6) k/uL RBC (3.80-5.40) m/uL Hgb (11.4-16.0) gm/dL Hct (34.0-46.0) % MCV (80.0-100.0) fL MCH (25.0-35.0) pg MCHC (31.0-37.0) g/dL RDW (11.5-15.5) % Plt Count (150-450) k/uL Neutrophils % % Lymphocytes % % Monocytes % % Eosinophils % % Basophils % % Neutrophils # (1.3-7.7) k/uL Lymphocytes # (1.0-4.8) k/uL Monocytes # (0-1.0) k/uL Eosinophils # (0-0.7) k/uL Basophils # (0-0.2) k/uL PT (9.0-12.0) sec INR (<1.2) APTT (22.0-30.0) sec Sodium (137-145) mmol/L Potassium (3.5-5.1) mmol/L Chloride (98-107) mmol/L Carbon Dioxide (22-30) mmol/L Anion Gap mmol/L BUN (7-17) mg/dL Creatinine (0.52-1.04) mg/dL Est GFR (CKD-EPI)AfAm (>60 ml/min/1.73 sqM) Est GFR (CKD-EPI)NonAf (>60 ml/min/1.73 sqM) Glucose (74-99) mg/dL Plasma Lactic Acid Kaiden (0.7-2.0) mmol/L Calcium (8.4-10.2) mg/dL Magnesium (1.6-2.3) mg/dL Total Bilirubin (0.2-1.3) mg/dL AST (14-36) U/L ALT (9-52) U/L Alkaline Phosphatase (38-126) U/L Total Creatine Kinase (30-135) U/L CK-MB (CK-2) (0.0-2.4) ng/mL CK-MB (CK-2) Rel Index Troponin I (0.000-0.034) ng/mL NT-Pro-B Natriuret Pep pg/mL Total Protein (6.3-8.2) g/dL Albumin (3.5-5.0) g/dL Urine Color Yellow Urine Appearance Clear (Clear) Urine pH 6.0 (5.0-8.0) Ur Specific Harrison 1.013 (1.001-1.035) Urine Protein Negative (Negative) Urine Glucose (UA) Negative (Negative) Urine Ketones Negative (Negative) Urine Blood Negative (Negative) Urine Nitrite Negative (Negative) Urine Bilirubin Negative (Negative) Urine Urobilinogen <2.0 (<2.0) mg/dL Ur Leukocyte Esterase Small H (Negative) Urine WBC 4 (0-5) /hpf Ur Squamous Epith Cells <1 (0-4) /hpf Urine Bacteria Rare H (None) /hpf Urine Mucus Rare H (None) /hpf - Radiology Data Radiology results: report reviewed (I did review the imaging and report no acute findings.), image reviewed Disposition Clinical Impression: Fall, Arm contusion, Contusion, buttock, Dehydration Disposition: HOME SELF-CARE Condition: Good Instructions: Fall Prevention for Older Adults (ED), Dehydration (ED), Contusion in Adults (ED) Is patient prescribed a controlled substance at d/c from ED?: No Referrals: Malgorzata Kaplan, [Primary Care Provider] - 1-2 days
[2018-06-02 17:16] LABS: Basophils % (A) 0 %; Eosinophils # (A) 0.1 k/uL (0-0.7); Eosinophils % (A) 1 %; HCT 42.8 % (34.0-46.0); HGB 13.6 gm/dL (11.4-16.0); Lymphocytes # (A) 1.9 k/uL (1.0-4.8); Lymphocytes % (A) 15 %; MCH 27.7 pg (25.0-35.0); MCHC 31.9 g/dL (31.0-37.0); MCV 86.9 fL (80.0-100.0); Mean Platelet Volume 6.9; Monocytes # (A) 0.9 k/uL (0-1.0); Monocytes % (A) 7 %; Neutrophils # (A) 9.7 k/uL (1.3-7.7); Neutrophils % (A) 75 %; Platelet Count 235 k/uL (150-450); RBC 4.92 m/uL (3.80-5.40); WBC 12.9 k/uL (3.8-10.6)
[2018-06-02 17:24] LABS: INR 1.1 (<1.2); Partial Thromboplastin Time 23.2 sec (22.0-30.0); Prothrombin Time 10.4 sec (9.0-12.0)
[2018-06-02 17:27] LABS: Albumin 3.7 g/dL (3.5-5.0); Calcium 9.4 mg/dL (8.4-10.2); Magnesium 1.9 mg/dL (1.6-2.3); Potassium 4.4 mmol/L (3.5-5.1); Total Bilirubin 0.4 mg/dL (0.2-1.3); Total Protein 6.3 g/dL (6.3-8.2)
[2018-06-02 17:33] LABS: Creatine Kinase 73 U/L (30-135)
--- NOTE | 2018-06-02 17:41 | CT ---
EXAMINATION TYPE: CT brain wo con DATE OF EXAM: 06/02/2018 COMPARISON: None HISTORY: weakness CT DLP: 782.6 mGycm Automated exposure control for dose reduction was used. Helical imaging through the brain FINDINGS: Cerebral vascular calcifications are present. There is no hemorrhage or hydrocephalus. Periventricula r white matter shows patchy low attenuation. Calvarium is intact. Cortical atrophy is likely age-rela estrella. Orbits show symmetric appearance. 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
[2018-06-02 17:47] LABS: Troponin I <0.012 ng/mL (0.000-0.034)
--- NOTE | 2018-06-02 17:52 | XR ---
EXAMINATION TYPE: XR chest 2V DATE OF EXAM: 06/02/2018 COMPARISON: Prior chest x-ray and chest CT 05/30/2018 HISTORY: Weakness and pulmonary embolism TECHNIQUE: Frontal and lateral views of the chest are obtained. FINDINGS: There is no focal air space opacity, pleural effusion, or pneumothorax seen. The cardiac silhouette size is stable and enlarged although accentuated by rotation, there are overlying cardiac leads. The osseous structures are intact. IMPRESSION: No acute cardiopulmonary process. Stable cardiomegaly
[2018-06-02 17:54] LABS: Creatine Kinase MB 3.5 ng/mL (0.0-2.4)
[2018-06-02 18:13] LABS: Appearance,Urine Clear (Clear); Bacteria,Urine Rare /hpf; Bilirubin,Urine Negative (Negative); Blood,Urine Negative (Negative); Color,Urine Yellow; Glucose,Urine (UA) Negative (Negative); Ketones,Urine Negative (Negative); Leukocyte Esterase,Urine Small (Negative); Mucus,Urine Rare /hpf; Nitrite,Urine Negative (Negative); Protein,Urine Negative (Negative); Specific Gravity,Urine 1.013 (1.001-1.035); Squamous Epithelial Cell,Urine <1 /hpf (0-4); Urobilinogen,Urine <2.0 mg/dL (<2.0); WBC,Urine 4 /hpf (0-5)
[2018-06-02 18:35] VITALS: BP 164/75
[2018-06-02 18:50] VITALS: PULSE 88; RESP 18; TEMP 98.3
== END 2018-06-02 18:49 | disposition home or self-care (01) ==
LOC: EC 16:27
DX: S30.0XXA Contusion of lower back and pelvis, initial encounter (principal); S40.021A Contusion of right upper arm, initial encounter; E86.0 Dehydration; J44.9 Chronic obstructive pulmonary disease, unspecified; I10 Essential (primary) hypertension; F41.9 Anxiety disorder, unspecified; Z86.711 Personal history of pulmonary embolism; Z79.82 Long term (current) use of aspirin; Z79.899 Other long term (current) drug therapy; Z88.1 Allergy status to other antibiotic agents; Z91.018 Allergy to other foods; Z91.048 Other nonmedicinal substance allergy status; W19.XXXA Unspecified fall, initial encounter
CPT/HCPCS: 36415; 70450; 71046; 80053; 81001; 82550; 82553; 83605; 83735; 83880; 84484; 85025; 85610; 85730; 93005; 99285

== ENCOUNTER 2018-06-05 18:02 | Emergency (ER) | payer MEDICARE ==
[2018-06-05 18:13] VITALS: BP 125/66; PULSE 84; RESP 18; TEMP 98.2
--- NOTE | 2018-06-05 19:18 | ED ---
Extremity Problem HPI - General Chief complaint: Extremity Problem,Nontraumatic Stated complaint: Leg pain Time Seen by Provider: 06/05/18 18:17 Source: patient, RN notes reviewed Mode of arrival: wheelchair Limitations: no limitations - History of Present Illness Initial comments: This is a 82-year-old female with past medical history of recent pulmonary embolism on Eliquis discharged on May 31 who presents today for chief complaint of right hip pain. Patient was seen on June [address] Overton for chief complaint of fall area patient stated that she was camping when she fell onto her right hip due to left leg weakness. Patient did not receive x-rays at that time, there was no clinical evidence of fracture. The patient was not complaining of right hip pain. Today patient is brought in by her daughter who states patient has-been complaining of right hip pain. She states that it began Monday the day after she fell on her right side. Patient is able to weight-bear, fully range at the right hip and ambulate with the right leg. Patient denies any numbness, tingling, loss sensation, muscle weakness, coolness of the x-ray, loss sensation or lower extremity edema. Patient was concerned about possible underlying fracture and that is why she presented today. Patient denies any chest pain, shortness of breath, dyspnea upon exertion, dizziness, confusion or any other complaints. Remainder ROS (-). Upon arrival pt VS stable, HR 84, 125/66. - Related Data Home Medications Medication Instructions Recorded Confirmed Albuterol Sulfate [Proventil Hfa] 1 - 2 puff INHALATION RT-Q4H PRN 10/22/16 Aspirin EC [Ecotrin Low Dose] 81 mg PO DAILY 10/22/16 06/02/18 Metoprolol Tartrate [Lopressor] 25 mg PO BID 10/22/16 06/02/18 Montelukast [Singulair] 10 mg PO HS 10/22/16 06/02/18 Omeprazole [PriLOSEC] 20 mg PO AC-BRKFST 10/22/16 06/02/18 amLODIPine [Norvasc] 5 mg PO DAILY 10/22/16 06/02/18 Albuterol Nebulized [Ventolin 2.5 mg INHALATION RT-Q4H PRN 05/30/18 06/02/18 Nebulized] Calcium Carbonate/Vitamin D3 1 tab PO DAILY 05/30/18 06/02/18 [Calcium 600-Vit D3 200 Tablet] Chondroitin 1 tab PO HS 05/30/18 06/02/18 Ferrous Sulfate [Feosol] 325 mg PO DAILY 05/30/18 06/02/18 Fluticasone/Salmeterol [Advair 1 puff INHALATION RT-BID 05/30/18 06/02/18 250-50 Diskus] Lansoprazole 30 mg PO DAILY 05/30/18 06/02/18 Previous Rx's Medication Instructions Recorded Acetaminophen Tab [Tylenol] 500 mg PO Q6HR PRN tab 06/01/18 Apixaban [Eliquis] 10 mg PO BID #72 tab 06/01/18 Atorvastatin Calcium [Lipitor] 20 mg PO HS #30 tab 06/01/18 Allergies Allergy/AdvReac Type Severity Reaction Status Date / Time orange juice [Hugo] Allergy Rash/Hives Verified 06/05/18 18:13 ciprofloxacin AdvReac Diarrhea Verified 06/05/18 18:13 gluten AdvReac Nausea & Verified 06/05/18 18:13 Vomiting & Diarrhea Review of Systems ROS Statement: Those systems with pertinent positive or pertinent negative responses have been documented in the HPI. ROS Other: All systems not noted in ROS Statement are negative. Constitutional: Denies: fever, chills, night sweats Eyes: Denies: vision change ENT: Denies: ear pain, throat pain Respiratory: Denies: cough, dyspnea, wheezes, hemoptysis, stridor Cardiovascular: Denies: chest pain, palpitations Gastrointestinal: Denies: abdominal pain, nausea, vomiting, diarrhea, constipation Genitourinary: Denies: urgency, dysuria, frequency, hematuria Musculoskeletal: Denies: back pain Skin: Denies: rash, lesions Neurological: Denies: headache, weakness, numbness, paresthesias, confusion, abnormal gait Past Medical History Past Medical History: Asthma, COPD, Hypertension, Pulmonary Embolus (PE) Additional Past Medical History / Comment(s): Previous history of pulmonary embolism approximately 8 years ago, celiac disease, bronchial asthma, hypertension, acid reflux, History of Any Multi-Drug Resistant Organisms: None Reported Past Surgical History: Appendectomy, Hysterectomy Past Anesthesia/Blood Transfusion Reactions: No Reported Reaction Past Psychological History: Anxiety Smoking Status: Never smoker Past Alcohol Use History: None Reported Past Drug Use History: None Reported - Past Family History Mother History Unknown: Yes Father Family Medical History: Cancer (lung) General Exam - General Exam Comments Initial Comments: General: The patient is awake and alert, in no distress, and does not appear acutely ill. Eye: Pupils are equal, round and reactive to light, extra-ocular movements are intact. No nystagmus. There is normal conjunctiva bilaterally. No signs of icterus. Ears, nose, mouth and throat: There are moist mucous membranes and no oral lesions. Neck: The neck is supple, there is no tenderness or JVD. Cardiovascular: There is a regular rate and rhythm. No murmur, rub or gallop is appreciated. Respiratory: Lungs are clear to auscultation, respirations are non-labored, breath sounds are equal. No wheezes, stridor, rales, or rhonchi. Musculoskeletal: No ecchymosis, soft tissue swelling, masses, warmth or erythema of the right hip upon inspection and palpation. There is tenderness to deep palpation of the right hip along the lateral aspect, no tenderness to palpation over the deep venous system. Patient is able to fully range with flexion and extension as well as internal and external rotation at the right hip. All movements with passive range of motion do not reproduce pain. There is no internal/external rotation of the hip. Or shortening of the left leg. There is no lower extremity edema. Patient has 5/5 strength at the knee, hip, ankles of the lower extremities equally bilaterally. Negative pelvic rock. . Sensation intact of the lower extremities equally bilaterally advised to toe to light sensation. +2 DP pulses equal bilaterally. <2 sec capillary refill. Neurological: A&O x 3. CN II-XII intact, There are no obvious motor or sensory deficits. Coordination appears grossly intact. Speech is normal. Skin: Skin is warm and dry and no rashes or lesions are noted. Psychiatric: Cooperative, appropriate mood & affect, normal judgment. Limitations: no limitations Course Vital Signs 06/05/18 18:09 Temperature 98.2 F Pulse Rate 84 Respiratory 18 Rate Blood Pressure 125/66 O2 Sat by Pulse 95 Oximetry Medical Decision Making - Medical Decision Making 82yo with cc of right hip s/p fall Monday concerning for possible fx; XR obtained returning inconclusive of fracture, there did not appear to be any distinct lucencly or cortical disruption. CT w/o contrast obtained revealed no definitive fracture. Case discussed with Dr. Marroquin and imaging reviewed together , no evidence of fracture seen. Pt is neurovascularly intact, there is no shortening, or rotation of the right leg. Pt is able to fully range and weight bear. Pt is ambulating at home with cane. There is no LE swelling and pt states she is compliant with her Eliquis. There is no overlying erythema, warmth to touch or pain with passive range of motion, no suspicion for septic joint at this time. The pain is reproducible with deep palpation over the right hip. At this time we feel pt is stable for discharge with orthopedic surgery for further evaluation and treatment of right hip pain. Pt agrees with plan and was instructed to ice, elevate and use over the counter NSAIDs for pain mgmt as needed. Pt agreed with plan, and was discharged in stable condition. VS stable. Disposition Clinical Impression: Right hip pain Disposition: HOME SELF-CARE Condition: Good Instructions: Hip Pain (ED) Additional Instructions: Please use over the counter medication as discussed. Please follow-up with orthopedic surgery in the next 1-2 days for further evaluation of right hip pain. Please return to emergency room if the symptoms increase or worsen or for any other concerns, as discussed. Is patient prescribed a controlled substance at d/c from ED?: No Referrals: Malgorzata Kaplan DO [Primary Care Provider] - 1-2 days Roman Richards DO [Doctor of Osteopathic Medicine] - 1-2 days Time of Disposition: 20:34
--- NOTE | 2018-06-05 19:29 | XR ---
EXAMINATION TYPE: AP view pelvis and 2 views right hip DATE OF EXAM: 06/05/2018 COMPARISON: NONE HISTORY: 82-year-old female with pain after fall FINDINGS: Diffuse osteopenia limits assessment. Mild degenerative change of both hips. No displaced fracture is seen. Suture anchors project near the pubic symphysis. Degenerative changes lower lumbar spine. SI j oints appear symmetric and intact. IMPRESSION: Osteopenia limiting assessment. No displaced fracture seen. If the patient is nonweightbearing or the re is concern for an occult osseous injury, MRI can provide more sensitive evaluation.
--- NOTE | 2018-06-05 20:29 | CT ---
EXAMINATION TYPE: CT hip RT wo con DATE OF EXAM: 06/05/2018 COMPARISON: Radiograph same day HISTORY: 82-year-old female Right hip pain post fall 4 days ago TECHNIQUE: Contiguous axial scanning of the right hip without IV contrast. Coronal and sagittal recon structions performed. CT DLP: 507 mGycm Automated exposure control for dose reduction was used. FINDINGS: Incidental intramuscular lipoma involving the anterior upper thigh measuring 8.6 x 4.0 cm. Degenerati ve changes of the right hip. Marked osteopenia. No convincing acute fracture seen. No displaced fract ures. Spinal canal stenosis noted at L4-L5 secondary to degenerative change. IMPRESSION: NO CONVINCING ACUTE FRACTURE. NO DISPLACED FRACTURES. MARKED OSTEOPENIA LIMITS ASSESSMENT. AGAIN, IF THE PATIENT IS NONWEIGHTBEARING, MRI CAN PROVIDE MORE SENSITIVE EVALUATION.
== END 2018-06-05 20:47 | disposition home or self-care (01) ==
LOC: EC 18:02
DX: M25.551 Pain in right hip (principal); J44.9 Chronic obstructive pulmonary disease, unspecified; I10 Essential (primary) hypertension; K21.9 Gastro-esophageal reflux disease without esophagitis; Z86.711 Personal history of pulmonary embolism; Z79.51 Long term (current) use of inhaled steroids; Z79.82 Long term (current) use of aspirin; Z79.899 Other long term (current) drug therapy; Z88.1 Allergy status to other antibiotic agents; Z91.018 Allergy to other foods; W18.39XD Other fall on same level, subsequent encounter
CPT/HCPCS: 73502; 99284

== ENCOUNTER → 2018-06-14 | Outpatient (CLI) | payer MEDICARE ==
[2018-06-15 04:13] LABS: Cardiolipin Ab IgG Interp NEGATIVE (NEGATIVE); Cardiolipin Ab IgM Interp NEGATIVE (NEGATIVE); Cardiolipin IgA Antibody 1.9 U/mL; Cardiolipin IgM Antibody 7.7 U/mL
[2018-06-15 12:28] LABS: Anti-Thrombin III Activity 135 % (79-109); Protein C (Activity) 91 % (71-138)
[2018-06-15 13:26] LABS: Free Protein S Antigen 95 % (50 - 147)
[2018-06-15 13:27] LABS: APTT 45 Sec(s) (<43); APTT 1:1 Mix 37 Sec(s) (<43); DRVVT 1:1 Mix 49 Sec(s) (<44); DRVVT Confirmation Negative (Negative); Dilute Russell Viper Venom 76 Sec(s) (<44)
== END | disposition home or self-care (01) ==
LOC: LABWHC1 16:03
PROVIDERS: ATTEND Nurse Practitioner Adult Health
DX: I26.99 Other pulmonary embolism without acute cor pulmonale (principal); I82.409 Acute embolism and thrombosis of unspecified deep veins of unspecified lower extremity
CPT/HCPCS: 36415; 81240; 81241; 85300; 85303; 85306; 85613; 85730; 85732; 86146; 86147

== ENCOUNTER 2018-11-02 08:35 | Emergency (ER) | payer MEDICARE ==
--- NOTE | 2018-11-02 09:50 | ED ---
Neck Injury/Pain HPI - General Chief Complaint: Neck Pain/Injury Stated Complaint: head & neck pain Time Seen by Provider: 11/02/18 09:00 Source: patient, RN notes reviewed Mode of arrival: wheelchair Limitations: no limitations - History of Present Illness Initial Comments: 83-year-old female presents emergency Department chief complaint of head and neck pain. Patient states that she's had some symptoms on and off for last couple weeks states that usually when she goes distally down wakes up in the morning. She states is much worse with movement. She denies any falls or any trauma. She has no weakness of her upper extremities denies any paresthesias denies chest pain shortness of breath. Patient states her is no pain below her neck. She has not tried taken any Tylenol for her symptoms. She does have a history of PEs and takes Eliquis daily. - Related Data Home Medications Medication Instructions Recorded Confirmed Montelukast [Singulair] 10 mg PO HS 10/22/16 11/02/18 Fluticasone/Salmeterol [Advair 1 puff INHALATION RT-BID 05/30/18 11/02/18 250-50 Diskus] Apixaban [Eliquis] 5 mg PO BID 11/02/18 11/02/18 Budesonide/Formoterol Fumarate 2 puff INHALATION RT-BID 11/02/18 11/02/18 [Symbicort 160-4.5 Mcg Inhaler] Losartan Potassium [Cozaar] 25 mg PO BID 11/02/18 11/02/18 Pantoprazole Sodium [Protonix] 40 mg PO DAILY 11/02/18 11/02/18 Vit C/E/Zn/Coppr/Lutein/Zeaxan 1 cap PO HS 11/02/18 11/02/18 [Preservision Areds 2 Softgel] Previous Rx's Medication Instructions Recorded Atorvastatin Calcium [Lipitor] 20 mg PO HS #30 tab 06/01/18 Allergies Allergy/AdvReac Type Severity Reaction Status Date / Time orange juice [[place]] Allergy Rash/Hives Verified 11/02/18 09:26 ciprofloxacin AdvReac Diarrhea Verified 11/02/18 09:26 gluten AdvReac Nausea & Verified 11/02/18 09:26 Vomiting & Diarrhea Review of Systems ROS Statement: Those systems with pertinent positive or pertinent negative responses have been documented in the HPI. ROS Other: All systems not noted in ROS Statement are negative. Past Medical History Past Medical History: Asthma, COPD, Hypertension, Pulmonary Embolus (PE) Additional Past Medical History / Comment(s): Previous history of pulmonary embolism approximately 8 years ago, celiac disease, bronchial asthma, hypertension, acid reflux, History of Any Multi-Drug Resistant Organisms: None Reported Past Surgical History: Appendectomy, Hysterectomy Past Anesthesia/Blood Transfusion Reactions: No Reported Reaction Past Psychological History: Anxiety Smoking Status: Never smoker Past Alcohol Use History: None Reported Past Drug Use History: None Reported - Past Family History Mother History Unknown: Yes Father Family Medical History: Cancer (lung) General Exam Limitations: no limitations General appearance: alert, in no apparent distress Head exam: Present: atraumatic, normocephalic, normal inspection Eye exam: Present: normal appearance, PERRL, EOMI. Absent: scleral icterus, conjunctival injection, periorbital swelling ENT exam: Present: normal exam, normal oropharynx, mucous membranes moist, TM's normal bilaterally, normal external ear exam Neck exam: Present: normal inspection, tenderness (Discharge diffuse vertebral and paraspinal tenderness of the cervical spine), full ROM (Mild discomfort). Absent: meningismus, lymphadenopathy Respiratory exam: Present: normal lung sounds bilaterally. Absent: respiratory distress, wheezes, rales, rhonchi, stridor Cardiovascular Exam: Present: regular rate, normal rhythm, normal heart sounds. Absent: systolic murmur, diastolic murmur, rubs, gallop, clicks GI/Abdominal exam: Present: soft, normal bowel sounds. Absent: distended, tenderness, guarding, rebound, rigid Extremities exam: Present: normal inspection, full ROM, normal capillary refill , other (Upper extremity strength equal bilaterally, neurovascular intact with equal radial pulses). Absent: tenderness, pedal edema, joint swelling, calf tenderness Back exam: Present: normal inspection, full ROM, paraspinal tenderness. Absent : tenderness, vertebral tenderness Neurological exam: Present: alert, oriented X3, CN II-XII intact, reflexes normal. Absent: motor sensory deficit Skin exam: Present: warm, dry, intact, normal color. Absent: rash Course Vital Signs 11/02/18 08:45 Temperature 98.1 F Pulse Rate 81 Respiratory 16 Rate Blood Pressure 152/80 O2 Sat by Pulse 94 L Oximetry Medical Decision Making - Medical Decision Making 83-year-old female presented for neck pain. CT of the head neck or obtained which shows severe degenerative changes. Patient's pain is consistent with this. She is neurologically intact otherwise. She will follow-up with her PCP she is advised take Tylenol apply heat and ice as directed and return for any worsening symptoms. Disposition Clinical Impression: Degenerative disc disease, cervical, Osteoarthritis cervical spine Disposition: HOME SELF-CARE Condition: Stable Instructions (If sedation given, give patient instructions): Neck Pain (ED) Additional Instructions: Please return to the Emergency Department if symptoms worsen or any other concerns. Is patient prescribed a controlled substance at d/c from ED?: No Referrals: Nonstaff,Physician [REFERRING] - 1-2 days Time of Disposition: 10:24
--- NOTE | 2018-11-02 09:54 | CT ---
EXAMINATION TYPE: CT brain elmer jimenez con DATE OF EXAM: 11/02/2018 COMPARISON: 06/02/2018 HISTORY: neck pain, CORDERO CT DLP: 1226 mGycm, Automated exposure control for dose reduction was used. CONTRAST: Patient injected with 0 mL of Isovue 300. CT of the brain is performed utilizing 3 mm thick sections through the posterior fossa and 3 mm thick sections through the remaining calvarium. Study is performed within 24 hours of arrival to the hospital. No abnormal hyperdensity is present to suggest an acute intracranial hemorrhage. No mass lesion is evident. No acute infarcts are evident. Mild periventricular white matter hypodensity is present, likely on t he basis of chronic white matter ischemic change. Some subcortical white matter changes present in th e left watershed region. This was present previously. Ventricles and sulci are slightly prominent for the patient age. There is mucosal thickening through the right maxillary sinus. Remaining paranasal sinuses and mastoi d air cells are clear. There is hyperostosis frontalis internus, normal variant. IMPRESSIONS: 1. Normal CT brain. CT cervical spine. COMPARISON: None CT of the cervical spine is performed in the axial plane at 2 mm thick sections. Reconstructed image s in the coronal, and sagittal plane are reviewed on the computer. No acute fractures are evident. There is a grade 1 spondylolisthesis of C6 anteriorly on C7. There is loss of disc height C5-6. Posterior endplate spurring is present C5-6 with mild to moderate anterior thecal sac compression borderline AP spinal canal stenosis is present. Uncovertebral joint h ypertrophy is present C5-6 with moderate bilateral foraminal stenosis. Some moderate left foraminal s tenosis secondary to uncovertebral joint hypertrophy and facet hypertrophy is present C4-5. Vertebral body heights are preserved. No spinal canal stenosis is evident. IMPRESSIONS: 1. No acute osseous abnormality cervical spine. 2. Grade 1 spondylolisthesis of C6 anteriorly on C7. 3. Degenerative disc changes C5-6. 4. Moderate foraminal stenosis C4-5 on the left C5-6 bilaterally due to uncovertebral joint hypertrop hy
[2018-11-02 10:32] VITALS: BP 146/72; PULSE 77; RESP 20; TEMP 98
== END 2018-11-02 10:31 | disposition home or self-care (01) ==
LOC: EC 08:35
DX: M50.30 Other cervical disc degeneration, unspecified cervical region (principal); M47.892 Other spondylosis, cervical region; R51 Headache; J44.9 Chronic obstructive pulmonary disease, unspecified; I10 Essential (primary) hypertension; K21.9 Gastro-esophageal reflux disease without esophagitis; Z86.711 Personal history of pulmonary embolism; Z79.51 Long term (current) use of inhaled steroids; Z79.01 Long term (current) use of anticoagulants; Z79.899 Other long term (current) drug therapy; Z91.018 Allergy to other foods; Z88.1 Allergy status to other antibiotic agents
CPT/HCPCS: 70450; 72125; 99283

== ENCOUNTER → 2018-12-24 | Outpatient (CLI) | payer MEDICARE ==
[2018-12-24 09:23] LABS: Blood Urea Nitrogen 11 mg/dL (7-17)
--- NOTE | 2018-12-24 09:58 | US ---
EXAMINATION TYPE: US venous doppler duplex LE DATE OF EXAM: 12/24/2018 8:54 AM COMPARISON: US 05/31/2018 CLINICAL HISTORY: I26.99 Pulmonary Embolism. History of DVT left leg, patient currently taking blood thinners SIDE PERFORMED: Bilateral TECHNIQUE: The lower extremity deep venous system is examined utilizing real time linear array sonog isatu with graded compression, doppler sonography and color-flow sonography. VESSELS IMAGED: External Iliac Vein (EIV) Common Femoral Vein Deep Femoral Vein Greater Saphenous Vein * Femoral Vein Popliteal Vein Small Saphenous Vein * Proximal Calf Veins (* superficial vessels) Grayscale, color doppler, spectral doppler imaging performed of the deep veins of the lower extremiti es. There is normal flow, compressibility, vascular waveforms. Right Leg: Appears negative for DVT Left Leg: Appears negative for DVT IMPRESSION: No sonographic evidence of pulmonary embolism. The previously seen thrombus within the l eft popliteal vein and branch vessel of the proximal calf vein on the exam of 05/31/2018 is no longer visualized.
--- NOTE | 2018-12-24 11:31 | CT ---
EXAMINATION TYPE: CT angio chest DATE OF EXAM: 12/24/2018 COMPARISON: 05/30/2018 HISTORY: SOB, PE CT DLP: 197.8 mGycm. Automated Exposure Control for Dose Reduction was Utilized. CONTRAST: CTA scan of the thorax is performed with IV Contrast, patient injected with 100 mL of Isovue 370, pul monary embolism protocol. MIP Images are created on CT scanner and reviewed. FINDINGS: LUNGS: There are groundglass at the lung bases. The right groundglass opacity with cylindrical bronch iectasis is unchanged from the prior of 05/30/2018 however that is new. No solid component is seen on soft tissue algorithm. There is mild to moderate background centrilobular emphysema. Biapical pleural -parenchymal scarring is present. There is no pleural effusion or pneumothorax seen. The tracheobron chial tree is patent. MEDIASTINUM: There is a normal variant origin of the left vertebral artery directly from the aortic a rch. There is suboptimal enhancement of the pulmonary artery and its branches, however there is no CT evidence for pulmonary embolism. There are no greater than 1 cm hilar or mediastinal lymph nodes. No cardiomegaly or pericardial effusion is seen. Severe coronary calcifications are evident. No thor acic aortic dissection or aneurysm. OTHER: There is a partial intrathoracic stomach with nondistention limiting evaluation for rugal fold thickening. Small splenule is noted adjacent to the [place] spleen. Mild multilevel degenerative shearer ge of the spine is present. IMPRESSION: 1. Despite a suboptimal contrast bolus there is no evidence of pulmonary embolism. No thoracic aortic dissection is seen. 2. Groundglass opacities bilateral with cylindrical bronchiectasis are present. The left is new in th e right is unchanged from the prior. Chronic pneumonitis of infectious or inflammatory etiology in th e right an additional focus of new pneumonitis or a primary consideration. 3. Intrathoracic stomach. 4. Severe coronary artery calcifications.
== END | disposition home or self-care (01) ==
LOC: RADUSMAIN 08:48
PROVIDERS: ATTEND Internal Medicine Hematology & Oncology
DX: I25.10 Atherosclerotic heart disease of native coronary artery without angina pectoris (principal); J18.9 Pneumonia, unspecified organism; J47.0 Bronchiectasis with acute lower respiratory infection; Z86.711 Personal history of pulmonary embolism; Z86.718 Personal history of other venous thrombosis and embolism
CPT/HCPCS: 82565; 84520; 93970; 71275; 36415; Q9967

== ENCOUNTER 2020-03-23 12:29 | Emergency (ER) | payer MEDICARE ==
[2020-03-23 12:40] VITALS: RESP 18; TEMP 98
--- NOTE | 2020-03-23 13:09 | ED ---
General Adult HPI - General Chief complaint: Extremity Problem,Nontraumatic Stated complaint: rt leg pain/swelling Time Seen by Provider: 03/23/20 12:56 Source: patient Mode of arrival: ambulatory Limitations: no limitations - History of Present Illness Initial comments: Dictation was produced using [employer] dictation software. please excuse any gram matical, word or spelling errors. This patient was cared for during a federal and state declared state of emergency secondary to Covid 19 Chief Complaint: 84-year-old female past medical history of DVT, presents today with right lower extremity pain. History of Present Illness: Patient is an 84-year-old female she presents today with right lower extremity pain. Patient states her symptoms have been ongoing for approximately 7 days. Patient denies any inciting event or traumatic i njuries to explain her symptoms. She states that her pain began spontaneously. She states it's worse with ambulation and ankle dorsiflexion. She localizes the pain to her right anterior berry. She states that she also notices some right lower extremity swelling. She does have history of DVT. She is currently on apixaban for DVT prevention. She does not complain of any DVTs at the moment. Patient denies any fever, chills or night sweats. She does not have any chest pain or shortness of breath. Denies any fever or constitutional symptoms. States that the pain is mild. It is in the right anterior berry and radiates up to the posterior calf. The ROS documented in this emergency department record has been reviewed and confirmed by me. Those systems with pertinent positive or negative responses have been documented in the HPI. All other systems are other negative and/or noncontributory. PHYSICAL EXAM: General Impression: Alert and oriented x3, not in acute distress HEENT: Normocephalic atraumatic, extra-ocular movements intact, pupils equal and reactive to light bilaterally, mucous membranes moist. Cardiovascular: Heart regular rate and rhythm Chest: Able to complete full sentences, no retractions, no tachypnea Abdomen: abdomen soft, non-tender, non-distended, no organomegaly Musculoskeletal: Pulses present and equal in all extremities, no peripheral edema Calf girth increased compared to the left lower extremity. Manipulation of the great toe does not increase pain. Lower extremity compartments are soft Motor: no focal deficits noted Neurological: CN II-XII grossly intact, no focal motor or sensory deficits noted Skin: Intact with no visualized rashes Psych: Normal affect and mood ED course:-year-old female presents with right lower extremity pain. Pain is mostly along the anterior tibialis muscle and worse with movement. No concern for compartment syndrome given the arms are soft. Vital signs upon arrival are within acceptable limits. Lower extremity pulses and capillary refill are intact. There is swelling to the right calf compared to the left. She is currently on the apixaban. Patient offered analgesia however refused.Ultrasound of the right lower extremity shows no findings of acute DVT. The x-ray shows a general findings of an acute processes. Ankle x-ray shows no acute processes. Laboratory evaluation obtained. Mild leukocytosis of 13.8. Coag panel unremarkable. Metabolic panel is unremarkable. Patient reevaluated at bedside. There is slight warmth compared to the left leg. There is some concern for cellulitis. This point patient is stable for discharge. She given a dose of ceftriaxone and prescription for Keflex to take home. She is advised to follow- up with primary care physician for follow-up and management of her current symptoms. - Related Data Home Medications Medication Instructions Recorded Confirmed Montelukast [Singulair] 10 mg PO HS 10/22/16 03/23/20 Apixaban [Eliquis] 5 mg PO BID 11/02/18 03/23/20 Vit C/E/Zn/Coppr/Lutein/Zeaxan 1 cap PO BID 11/02/18 03/23/20 [Preservision Areds 2 Softgel] Albuterol Inhaler [Ventolin Hfa 1 puff INHALATION RT-Q4H PRN 03/23/20 03/23/20 Inhaler] Aspirin EC [Ecotrin Low Dose] 81 mg PO DAILY 03/23/20 03/23/20 Budesonide/Formoterol Fumarate 2 puff INHALATION RT-BID 03/23/20 03/23/20 [Symbicort 80-4.5 Mcg Inhaler] Calcium Carbonate [Calcium] 600 mg PO DAILY 03/23/20 03/23/20 Cholecalciferol [Vitamin D3 (25 2,000 unit PO DAILY 03/23/20 03/23/20 Mcg = 1000 Iu)] Ferrous Sulfate [Feosol] 325 mg PO DAILY 03/23/20 03/23/20 Furosemide [Lasix] 20 mg PO DAILY 03/23/20 03/23/20 Metoprolol Tartrate [Lopressor] 25 mg PO BID 03/23/20 03/23/20 Omeprazole 20 mg PO DAILY 03/23/20 03/23/20 amLODIPine [Norvasc] 5 mg PO DAILY 03/23/20 03/23/20 Previous Rx's Medication Instructions Recorded Atorvastatin Calcium [Lipitor] 20 mg PO HS #30 tab 06/01/18 Cephalexin [Keflex] 500 mg PO Q6HR 5 Days #20 cap 03/23/20 Allergies Allergy/AdvReac Type Severity Reaction Status Date / Time orange juice [[place]] Allergy Rash/Hives Verified 03/23/20 14:49 ciprofloxacin AdvReac Diarrhea Verified 03/23/20 14:49 gluten AdvReac Nausea & Verified 03/23/20 14:49 Vomiting & Diarrhea Review of Systems ROS Statement: Those systems with pertinent positive or pertinent negative responses have been documented in the HPI. ROS Other: All systems not noted in ROS Statement are negative. Past Medical History Past Medical History: Asthma, COPD, Hypertension, Pulmonary Embolus (PE) Additional Past Medical History / Comment(s): Previous history of pulmonary embolism approximately 8 years ago, celiac disease, bronchial asthma, hypertension, acid reflux, History of Any Multi-Drug Resistant Organisms: None Reported Past Surgical History: Appendectomy, Hysterectomy Past Anesthesia/Blood Transfusion Reactions: No Reported Reaction Past Psychological History: Anxiety Smoking Status: Never smoker Past Alcohol Use History: None Reported Past Drug Use History: None Reported - Past Family History Mother History Unknown: Yes Father Family Medical History: Cancer (lung) General Exam Limitations: no limitations Course Vital Signs 03/23/20 03/23/20 12:34 15:23 Temperature 98.0 F Pulse Rate 72 74 Respiratory 18 18 Rate Blood Pressure 144/82 130/80 O2 Sat by Pulse 98 97 Oximetry Medical Decision Making - Lab Data Result diagrams: 03/23/20 13:28 03/23/20 14:30 Lab Results 03/23/20 03/23/20 03/23/20 Range/Units 13:28 13:28 14:30 WBC 13.8 H (3.8-10.6) k/uL RBC 5.08 (3.80-5.40) m/uL Hgb 14.2 (11.4-16.0) gm/dL Hct 43.3 (34.0-46.0) % MCV 85.4 (80.0-100.0) fL MCH 28.0 (25.0-35.0) pg MCHC 32.8 (31.0-37.0) g/dL RDW 14.5 (11.5-15.5) % Plt Count 283 (150-450) k/uL Neutrophils % 60 % Lymphocytes % 29 % Monocytes % 7 % Eosinophils % 2 % Basophils % 0 % Neutrophils # 8.2 H (1.3-7.7) k/uL Lymphocytes # 4.0 (1.0-4.8) k/uL Monocytes # 1.0 (0-1.0) k/uL Eosinophils # 0.3 (0-0.7) k/uL Basophils # 0.0 (0-0.2) k/uL PT 10.5 (9.0-12.0) sec INR 1.0 (<1.2) APTT 25.6 (22.0-30.0) sec Sodium 138 (137-145) mmol/L Potassium 4.6 (3.5-5.1) mmol/L Chloride 104 (98-107) mmol/L Carbon Dioxide 27 (22-30) mmol/L Anion Gap 7 mmol/L BUN 18 H (7-17) mg/dL Creatinine 0.79 (0.52-1.04) mg/dL Est GFR (CKD-EPI)AfAm 81 (>60 ml/min/1.73 sqM) Est GFR (CKD-EPI)NonAf 70 (>60 ml/min/1.73 sqM) Glucose 98 (74-99) mg/dL Calcium 9.4 (8.4-10.2) mg/dL Disposition Clinical Impression: Leg pain Disposition: HOME SELF-CARE Condition: Good Instructions (If sedation given, give patient instructions): Cellulitis (ED) Prescriptions: Cephalexin [Keflex] 500 mg PO Q6HR 5 Days #20 cap Is patient prescribed a controlled substance at d/c from ED?: No Referrals: Malgorzata Kaplan DO [Primary Care Provider] - 1-2 days Time of Disposition: 15:30
[2020-03-23 13:47] LABS: Basophils % (A) 0 %; Eosinophils # (A) 0.3 k/uL (0-0.7); Eosinophils % (A) 2 %; HCT 43.3 % (34.0-46.0); HGB 14.2 gm/dL (11.4-16.0); Lymphocytes % (A) 29 %; MCHC 32.8 g/dL (31.0-37.0); MCV 85.4 fL (80.0-100.0); Mean Platelet Volume 8.2; Monocytes % (A) 7 %; Neutrophils # (A) 8.2 k/uL (1.3-7.7); Neutrophils % (A) 60 %; Platelet Count 283 k/uL (150-450); RBC 5.08 m/uL (3.80-5.40); RDW 14.5 % (11.5-15.5); WBC 13.8 k/uL (3.8-10.6)
--- NOTE | 2020-03-23 13:52 | XR ---
EXAMINATION TYPE: XR ankle complete RT DATE OF EXAM: 03/23/2020 CLINICAL HISTORY: Pain and swelling. TECHNIQUE: Frontal, lateral and oblique images of the right ankle are obtained. COMPARISON: None. FINDINGS: Demineralization is present. There is no acute fracture/dislocation evident in the right a nkle. The ankle mortise appears within normal limits. Mild to moderate diffuse subcutaneous edema al kareem the distal leg is noted extending into hindfoot level. IMPRESSION: As above.
--- NOTE | 2020-03-23 13:53 | XR ---
EXAMINATION TYPE: XR knee 4V RT DATE OF EXAM: 03/23/2020 CLINICAL HISTORY: Pain and swelling. TECHNIQUE: 4 views of the right knee are obtained. COMPARISON: None. FINDINGS: Demineralization is present. There is no acute fracture/dislocation evident in right knee. Genu varum positioning is seen. There is severe narrowing and joint space sclerosis with mild/modera te medial spurring medial tibial femoral compartment. There is mild to moderate narrowing and mild sp urring patellofemoral compartment. Increased density suprapatellar bursa suspicious for small to mode rate-sized joint effusion. Patellar articulation satisfactory on the sunrise view. IMPRESSION: As above.
[2020-03-23 13:58] LABS: Partial Thromboplastin Time 25.6 sec (22.0-30.0); Prothrombin Time 10.5 sec (9.0-12.0)
--- NOTE | 2020-03-23 14:50 | US ---
EXAMINATION TYPE: US venous doppler duplex LE RT DATE OF EXAM: 03/23/2020 1:06 PM COMPARISON: US bilateral lower extremity venous December 24, 2018 CLINICAL HISTORY: ro DVT. Right LE swelling SIDE PERFORMED: Right TECHNIQUE: The lower extremity deep venous system is examined utilizing real time linear array sonog isatu with graded compression, doppler sonography and color-flow sonography. VESSELS IMAGED: Common Femoral Vein Deep Femoral Vein Greater Saphenous Vein * Femoral Vein Popliteal Vein Small Saphenous Vein * Proximal Calf Veins (* superficial vessels) Right Leg: Negative for DVT Grayscale, color doppler, spectral doppler imaging performed of the deep veins of the right lower ext remity. There is normal flow, compressibility, vascular waveforms. IMPRESSION: No ultrasound evidence for acute DVT in the right lower extremity.
[2020-03-23 15:03] LABS: Potassium 4.6 mmol/L (3.5-5.1)
[2020-03-23 15:04] LABS: Calcium 9.4 mg/dL (8.4-10.2)
[2020-03-23 15:25] VITALS: BP 130/80; PULSE 74
[2020-03-23] MEDS ORDERED: ACET/COD 300 MG/30 MG STARTER PACK 6 TAB BTL PO STA (15:29)
[2020-03-23] MEDS ORDERED: cefTRIAXone IN SWFI 1,000 MG/10 ML SYRINGE IVP STA (15:29)
== END 2020-03-23 15:56 | disposition home or self-care (01) ==
LOC: EC 12:29
DX: M79.604 Pain in right leg (principal); M79.89 Other specified soft tissue disorders; D72.829 Elevated white blood cell count, unspecified; J44.9 Chronic obstructive pulmonary disease, unspecified; I10 Essential (primary) hypertension; K21.9 Gastro-esophageal reflux disease without esophagitis; Z79.01 Long term (current) use of anticoagulants; Z79.51 Long term (current) use of inhaled steroids; Z79.82 Long term (current) use of aspirin; Z79.899 Other long term (current) drug therapy; Z88.1 Allergy status to other antibiotic agents; Z91.02 Food additives allergy status; Z86.718 Personal history of other venous thrombosis and embolism; Z86.711 Personal history of pulmonary embolism
CPT/HCPCS: 36415; 80048; 85025; 85610; 85730; 73564; 73610; 93971; 99284; 96374; J0696

== ENCOUNTER 2021-07-24 18:14 | Inpatient (IN) | payer MEDICARE ==
--- NOTE | 2021-07-24 18:27 | ED ---
General Adult HPI - General Chief complaint: Weakness Stated complaint: COVID+,Weakness Time Seen by Provider: 07/24/21 18:18 Source: patient, EMS Mode of arrival: EMS Limitations: no limitations - History of Present Illness Initial comments: Patient presents to the ED by ambulance for evaluation. Patient states that she has had symptoms of generalized weakness, cough, congestion, fever, diffuse myalgias and dyspnea for the past 6 days or so, and she states that her symptoms have been getting worse. Patient states that she recently tested positive for Covid. Patient states that she has not been vaccinated for Covid. Patient states that "the whole family has Covid". Patient denies receiving monoclonal antibody treatment for Covid. Patient denies trauma or injury, headache, focal neuro deficit, neck pain or stiffness, sore throat, chest pain, hemoptysis, palpitations, syncope, abdominal pain, nausea/vomiting/diarrhea, bloody or melanotic stool, dysuria/hematuria/urinary frequency/urinary symptoms, leg swelling or pain, or any other symptoms or complaints. - Related Data Home Medications Medication Instructions Recorded Confirmed Montelukast [Singulair] 10 mg PO HS 10/22/16 03/23/20 Apixaban [Eliquis] 5 mg PO BID 11/02/18 03/23/20 Vit C/E/Zn/Coppr/Lutein/Zeaxan 1 cap PO BID 11/02/18 03/23/20 [Preservision Areds 2 Softgel] Albuterol Inhaler [Ventolin Hfa 1 puff INHALATION RT-Q4H PRN 03/23/20 03/23/20 Inhaler] Aspirin EC [Ecotrin Low Dose] 81 mg PO DAILY 03/23/20 03/23/20 Budesonide/Formoterol Fumarate 2 puff INHALATION RT-BID 03/23/20 03/23/20 [Symbicort 80-4.5 Mcg Inhaler] Calcium Carbonate [Calcium] 600 mg PO DAILY 03/23/20 03/23/20 Cholecalciferol [Vitamin D3 (25 2,000 unit PO DAILY 03/23/20 03/23/20 Mcg = 1000 Iu)] Ferrous Sulfate [Feosol] 325 mg PO DAILY 03/23/20 03/23/20 Furosemide [Lasix] 20 mg PO DAILY 03/23/20 03/23/20 Metoprolol Tartrate [Lopressor] 25 mg PO BID 03/23/20 03/23/20 Omeprazole 20 mg PO DAILY 03/23/20 03/23/20 amLODIPine [Norvasc] 5 mg PO DAILY 03/23/20 03/23/20 Previous Rx's Medication Instructions Recorded Atorvastatin Calcium [Lipitor] 20 mg PO HS #30 tab 06/01/18 Cephalexin [Keflex] 500 mg PO Q6HR 5 Days #20 cap 03/23/20 Allergies Allergy/AdvReac Type Severity Reaction Status Date / Time orange juice [[place]] Allergy Rash/Hives Verified 03/23/20 14:49 ciprofloxacin AdvReac Diarrhea Verified 03/23/20 14:49 gluten AdvReac Nausea & Verified 03/23/20 14:49 Vomiting & Diarrhea Review of Systems ROS Statement: Those systems with pertinent positive or pertinent negative responses have been documented in the HPI. ROS Other: All systems not noted in ROS Statement are negative. Past Medical History Past Medical History: Asthma, COPD, Hypertension, Pulmonary Embolus (PE) Additional Past Medical History / Comment(s): Previous history of pulmonary embolism approximately 8 years ago, celiac disease, bronchial asthma, hypertension, acid reflux, History of Any Multi-Drug Resistant Organisms: None Reported Past Surgical History: Appendectomy, Hysterectomy Past Anesthesia/Blood Transfusion Reactions: No Reported Reaction Past Psychological History: Anxiety Past Alcohol Use History: None Reported Past Drug Use History: None Reported - Past Family History Mother History Unknown: Yes Father Family Medical History: Cancer (lung) General Exam Limitations: no limitations General appearance: alert, in no apparent distress Head exam: Present: atraumatic, normocephalic Eye exam: Present: normal appearance, EOMI ENT exam: Present: mucous membranes moist Neck exam: Present: other (Trachea is in midline). Absent: meningismus Respiratory exam: Present: rhonchi, other (Equal breath sounds bilaterally). Absent: respiratory distress, wheezes, stridor Cardiovascular Exam: Present: regular rate, normal rhythm, normal heart sounds, other (Normal radial pulses bilaterally) GI/Abdominal exam: Present: soft. Absent: distended, tenderness, guarding Extremities exam: Absent: tenderness, pedal edema, calf tenderness Back exam: Absent: CVA tenderness (R), CVA tenderness (L) Neurological exam: Present: alert, oriented X3. Absent: motor sensory deficit Psychiatric exam: Present: normal affect, normal mood Skin exam: Present: warm, dry, intact, normal color Course Vital Signs 07/24/21 07/24/21 07/24/21 18:19 18:50 19:07 Temperature 99.4 F Pulse Rate 84 79 Respiratory 16 20 20 Rate Blood Pressure 120/68 118/63 O2 Sat by Pulse 91 L 97 Oximetry - Reevaluation(s) Reevaluation #1: 07/24/21 19:44 Case, H&P and test results were discussed with VAULT TE[employer]ER Barbara Mo. She accepts hospital admission on behalf of herself and Dr. Lafleur. She agrees with IV Decadron treatment, as well as pulmonology consultation. She has no further recommendations at this time. 07/24/21 19:56 Patient denies development of any new symptoms while in the ED. Patient remains alert and breathing comfortably. Patient is aware of her test results, and she agrees with hospital admission at this time. EKG Findings - EKG Comments: EKG Findings:: Sinus rhythm, single PAC, ventricular rate of 79 bpm, normal ME and QRS intervals, normal QT interval, normal axis, no ST or T-wave abnormality Medical Decision Making - Medical Decision Making I suspect that the patient's symptoms and chest x-ray findings are likely secondary to her Covid-19 infection. Given the patient's age, mild hypoxia and infiltrates seen on chest x-ray, will admit the patient to the hospital for fur ther evaluation and treatment. IV Decadron has been ordered for the patient. A pulmonology consultation order has been placed. BERYL Mo has accepted hospital admission on behalf of herself and Dr. Lafleur. - Lab Data Result diagrams: 07/24/21 18:59 07/24/21 18:59 Lab Results 07/24/21 07/24/21 07/24/21 Range/Units 18:59 18:59 18:59 WBC 6.5 (3.8-10.6) k/uL RBC 4.76 (3.80-5.40) m/uL Hgb 13.4 (11.4-16.0) gm/dL Hct 40.5 (34.0-46.0) % MCV 85.1 (80.0-100.0) fL MCH 28.3 (25.0-35.0) pg MCHC 33.2 (31.0-37.0) g/dL RDW 14.8 (11.5-15.5) % Plt Count 168 (150-450) k/uL MPV 9.1 Neutrophils % 62 % Lymphocytes % 25 % Monocytes % 9 % Eosinophils % 0 % Basophils % 0 % Neutrophils # 4.0 (1.3-7.7) k/uL Lymphocytes # 1.6 (1.0-4.8) k/uL Monocytes # 0.6 (0-1.0) k/uL Eosinophils # 0.0 (0-0.7) k/uL Basophils # 0.0 (0-0.2) k/uL PT 10.9 (9.0-12.0) sec INR 1.0 (<1.2) APTT 29.2 (22.0-30.0) sec Sodium 134 L (137-145) mmol/L Potassium 4.9 (3.5-5.1) mmol/L Chloride 105 (98-107) mmol/L Carbon Dioxide 19 L (22-30) mmol/L Anion Gap 10 mmol/L BUN 20 H (7-17) mg/dL Creatinine 0.83 (0.52-1.04) mg/dL Est GFR (CKD-EPI)AfAm 75 (>60 ml/min/1.73 sqM) Est GFR (CKD-EPI)NonAf 65 (>60 ml/min/1.73 sqM) Glucose 113 H (74-99) mg/dL Plasma Lactic Acid [place] (0.7-2.0) mmol/L Calcium 8.5 (8.4-10.2) mg/dL Magnesium 1.8 (1.6-2.3) mg/dL Total Bilirubin 0.4 (0.2-1.3) mg/dL AST 101 H (14-36) U/L ALT 49 H (4-34) U/L Alkaline Phosphatase 92 (38-126) U/L Troponin I (0.000-0.034) ng/mL NT-Pro-B Natriuret Pep pg/mL Total Protein 6.3 (6.3-8.2) g/dL Albumin 3.5 (3.5-5.0) g/dL Coronavirus (PCR) (Not Detectd) 10/07/24/21 07/24/21 Range/Units 18:59 18:59 18:59 WBC (3.8-10.6) k/uL RBC (3.80-5.40) m/uL Hgb (11.4-16.0) gm/dL Hct (34.0-46.0) % MCV (80.0-100.0) fL MCH (25.0-35.0) pg MCHC (31.0-37.0) g/dL RDW (11.5-15.5) % Plt Count (150-450) k/uL MPV Neutrophils % % Lymphocytes % % Monocytes % % Eosinophils % % Basophils % % Neutrophils # (1.3-7.7) k/uL Lymphocytes # (1.0-4.8) k/uL Monocytes # (0-1.0) k/uL Eosinophils # (0-0.7) k/uL Basophils # (0-0.2) k/uL PT (9.0-12.0) sec INR (<1.2) APTT (22.0-30.0) sec Sodium (137-145) mmol/L Potassium (3.5-5.1) mmol/L Chloride (98-107) mmol/L Carbon Dioxide (22-30) mmol/L Anion Gap mmol/L BUN (7-17) mg/dL Creatinine (0.52-1.04) mg/dL Est GFR (CKD-EPI)AfAm (>60 ml/min/1.73 sqM) Est GFR (CKD-EPI)NonAf (>60 ml/min/1.73 sqM) Glucose (74-99) mg/dL Plasma Lactic Acid [place] 0.8 (0.7-2.0) mmol/L Calcium (8.4-10.2) mg/dL Magnesium (1.6-2.3) mg/dL Total Bilirubin (0.2-1.3) mg/dL AST (14-36) U/L ALT (4-34) U/L Alkaline Phosphatase (38-126) U/L Troponin I <0.012 (0.000-0.034) ng/mL NT-Pro-B Natriuret Pep 503 pg/mL Total Protein (6.3-8.2) g/dL Albumin (3.5-5.0) g/dL Coronavirus (PCR) (Not Detectd) 07/24/21 Range/Units 18:59 WBC (3.8-10.6) k/uL RBC (3.80-5.40) m/uL Hgb (11.4-16.0) gm/dL Hct (34.0-46.0) % MCV (80.0-100.0) fL MCH (25.0-35.0) pg MCHC (31.0-37.0) g/dL RDW (11.5-15.5) % Plt Count (150-450) k/uL MPV Neutrophils % % Lymphocytes % % Monocytes % % Eosinophils % % Basophils % % Neutrophils # (1.3-7.7) k/uL Lymphocytes # (1.0-4.8) k/uL Monocytes # (0-1.0) k/uL Eosinophils # (0-0.7) k/uL Basophils # (0-0.2) k/uL PT (9.0-12.0) sec INR (<1.2) APTT (22.0-30.0) sec Sodium (137-145) mmol/L Potassium (3.5-5.1) mmol/L Chloride (98-107) mmol/L Carbon Dioxide (22-30) mmol/L Anion Gap mmol/L BUN (7-17) mg/dL Creatinine (0.52-1.04) mg/dL Est GFR (CKD-EPI)AfAm (>60 ml/min/1.73 sqM) Est GFR (CKD-EPI)NonAf (>60 ml/min/1.73 sqM) Glucose (74-99) mg/dL Plasma Lactic Acid [place] (0.7-2.0) mmol/L Calcium (8.4-10.2) mg/dL Magnesium (1.6-2.3) mg/dL Total Bilirubin (0.2-1.3) mg/dL AST (14-36) U/L ALT (4-34) U/L Alkaline Phosphatase (38-126) U/L Troponin I (0.000-0.034) ng/mL NT-Pro-B Natriuret Pep pg/mL Total Protein (6.3-8.2) g/dL Albumin (3.5-5.0) g/dL Coronavirus (PCR) Detected A (Not Detectd) - Radiology Data Radiology results: report reviewed (Chest x-ray: There is bilateral lower lobe pneumonia that appears new compared to old exam.) Disposition Clinical Impression: Pneumonia due to COVID-19 virus, Weakness, Dyspnea, Hypoxia Disposition: ADMITTED IP TO THIS HOSP Condition: Stable Is patient prescribed a controlled substance at d/c from ED?: No Referrals: Malgorzata Kaplan, DO [Primary Care Provider] - 1-2 days Time of Disposition: 19:46
[2021-07-24 19:22] LABS: Basophils % (A) 0 %; Eosinophils % (A) 0 %; HCT 40.5 % (34.0-46.0); HGB 13.4 gm/dL (11.4-16.0); Lymphocytes # (A) 1.6 k/uL (1.0-4.8); Lymphocytes % (A) 25 %; MCH 28.3 pg (25.0-35.0); MCHC 33.2 g/dL (31.0-37.0); MCV 85.1 fL (80.0-100.0); Mean Platelet Volume 9.1; Monocytes # (A) 0.6 k/uL (0-1.0); Monocytes % (A) 9 %; Neutrophils % (A) 62 %; Platelet Count 168 k/uL (150-450); RBC 4.76 m/uL (3.80-5.40); RDW 14.8 % (11.5-15.5); WBC 6.5 k/uL (3.8-10.6)
[2021-07-24 19:23] LABS: Partial Thromboplastin Time 29.2 sec (22.0-30.0); Prothrombin Time 10.9 sec (9.0-12.0)
[2021-07-24 19:26] LABS: Albumin 3.5 g/dL (3.5-5.0); Calcium 8.5 mg/dL (8.4-10.2); Magnesium 1.8 mg/dL (1.6-2.3); Potassium 4.9 mmol/L (3.5-5.1); Total Bilirubin 0.4 mg/dL (0.2-1.3); Total Protein 6.3 g/dL (6.3-8.2)
--- NOTE | 2021-07-24 19:31 | XR ---
EXAMINATION TYPE: XR chest 1V portable DATE OF EXAM: 07/24/2021 COMPARISON: 06/02/2018 HISTORY: Short of breath TECHNIQUE: FINDINGS: Heart size is fairly normal. There is some patchy airspace infiltrates in both lung bases. There is no obvious heart failure. There are no hilar masses. IMPRESSION: There is bilateral lower lobe pneumonia that appears new compared to old exam.
[2021-07-24] MEDS ORDERED: DEXAMETHASONE SOD PHOSPHATE 4 MG/ML 1 ML VIAL IV STA (19:45)
[2021-07-25 04:25] LABS: Appearance,Urine Clear (Clear); Bilirubin,Urine Negative (Negative); Blood,Urine Negative (Negative); Color,Urine Yellow; Glucose,Urine (UA) Negative (Negative); Ketones,Urine Trace (Negative); Leukocyte Esterase,Urine Negative (Negative); Nitrite,Urine Negative (Negative); Protein,Urine Trace (Negative); Specific Gravity,Urine 1.014 (1.001-1.035); Urobilinogen,Urine <2.0 mg/dL (<2.0)
[2021-07-25 07:30] LABS: Basophils % (A) 1 %; Eosinophils % (A) 0 %; HCT 44.9 % (34.0-46.0); HGB 14.2 gm/dL (11.4-16.0); Lymphocytes # (A) 1.1 k/uL (1.0-4.8); Lymphocytes % (A) 30 %; MCH 27.6 pg (25.0-35.0); MCHC 31.6 g/dL (31.0-37.0); MCV 87.5 fL (80.0-100.0); Mean Platelet Volume 8.5; Monocytes # (A) 0.3 k/uL (0-1.0); Monocytes % (A) 7 %; Neutrophils # (A) 2.2 k/uL (1.3-7.7); Neutrophils % (A) 58 %; Platelet Count 155 k/uL (150-450); RBC 5.13 m/uL (3.80-5.40); RDW 14.3 % (11.5-15.5); WBC 3.8 k/uL (3.8-10.6)
[2021-07-25 08:06] LABS: ALT 52 U/L (4-34); AST 94 U/L (14-36); African American GFR (CKD) >90 (>60 ml/min/1.73 sqM); Albumin 3.4 g/dL (3.5-5.0); Albumin/Globulin Ratio 1.3; Alkaline Phosphatase 96 U/L (38-126); Anion Gap 10 mmol/L; Blood Urea Nitrogen 17 mg/dL (7-17); Calcium 9.1 mg/dL (8.4-10.2); Carbon Dioxide 24 mmol/L (22-30); Chloride 105 mmol/L (98-107); Globulin 2.7 g/dL; Glucose 146 mg/dL (74-99); Non-African American GFR(CKD) 80 (>60 ml/min/1.73 sqM); Potassium 5.4 mmol/L (3.5-5.1); Sodium 139 mmol/L (137-145); Total Bilirubin 0.4 mg/dL (0.2-1.3); Total Protein 6.1 g/dL (6.3-8.2)
[2021-07-25 08:52] LABS: C Reactive Protein 0.9 mg/dL (<1.0)
[2021-07-25] MEDS ORDERED: ENOXAPARIN 40 MG/0.4 ML SYRINGE SQ SCH (09:00)
[2021-07-25] MEDS ORDERED: NON FORMULARY DRUG (Glucosam/Chon-Msm1/C/Mang/Bosw [Glucosamine-Chondroitin Tablet] 1 EACH PO SCH (09:00)
--- NOTE | 2021-07-25 09:21 | P.CNPUL ---
History of Present Illness Consult date: 07/25/21 Requesting physician: Vahid Bhatti Reason for consult: dyspnea, hypoxemia, pneumonia, abnormal CXR/CT Chief complaint: Dyspnea, hypoxia, COVID-19 pneumonia History of present illness: This is a 85-year-old white female patient with past surgical history of chronic bronchial asthma, hypertension, previous history of recurrent pulmonary embolism, on Eliquis, celiac disease, who came into the hospital on 07/24/2021 with complaints of generalized weakness, cough, congestion, fever, diffuse matthew lgias and dyspnea for the past 6 days. She recently tested positive for COVID- 19. Patient is not vaccinated for COVID-19. Her whole family is infected with COVID. She has not received any monoclonal antibody. Chest x-ray showed bilateral lower lobe pneumonia. COVID-19 PCR test was positive in the emergency department, CBC was within normal limits, d-dimer was 0.47, sodium is 134, potassium is 4.9, chloride is 105, CO2 is 19, BUN is 20, creatinine 0.83, lactic acid was 0.8, AST was 101, ALT was 49, alkaline phosphatase was 92, troponin was less than 0.012, proBNP was 503, urinalysis showed trace protein and trace ketones, no evidence of infection. She is on 3 L of oxygen pulse ox of 98%, afebrile. She was started on Decadron 6 mg daily, COVID-19 vitamins, she was placed on Lovenox 40 mg daily although she takes Eliquis at home for history of recurrent pulmonary embolism. We were asked to see the patient in consultation for shortness of breath related to acute COVID-19 pneumonia Review of Systems All systems: negative Constitutional: Denies chills, Denies fever Eyes: denies blurred vision, denies pain Ears, nose, mouth and throat: Denies headache, Denies sore throat Cardiovascular: Denies chest pain, Denies shortness of breath Respiratory: Reports dyspnea, Denies cough Gastrointestinal: Denies abdominal pain, Denies diarrhea, Denies nausea, Denies vomiting Genitourinary: Denies dysuria, Denies hematuria Musculoskeletal: Denies myalgias Integumentary: Denies pruritus, Denies rash Neurological: Denies numbness, Denies weakness Psychiatric: Denies anxiety, Denies depression Endocrine: Denies fatigue, Denies weight change Past Medical History Past Medical History: Asthma, Chest Pain / Angina, COPD, Hypertension, Pulmonary Embolus (PE) Additional Past Medical History / Comment(s): Previous history of pulmonary embolism approximately 8 years ago, celiac disease, bronchial asthma, hypertension, acid reflux, History of Any Multi-Drug Resistant Organisms: None Reported Past Surgical History: Appendectomy, Hysterectomy Past Anesthesia/Blood Transfusion Reactions: No Reported Reaction Past Psychological History: Anxiety Past Alcohol Use History: None Reported Past Drug Use History: None Reported - Past Family History Mother History Unknown: Yes Father Family Medical History: Cancer (lung) Medications and Allergies Home Medications Medication Instructions Recorded Confirmed Type Montelukast [Singulair] 10 mg PO HS 10/22/16 07/24/21 History Atorvastatin Calcium [Lipitor] 20 mg PO HS #30 tab 06/01/18 07/24/21 Rx Apixaban [Eliquis] 5 mg PO BID 11/02/18 07/24/21 History Vit C/E/Zn/Coppr/Lutein/Zeaxan 1 cap PO BID 11/02/18 07/24/21 History [Preservision Areds 2 Softgel] Aspirin EC [Ecotrin Low Dose] 81 mg PO DAILY 03/23/20 07/24/21 History Omeprazole 20 mg PO DAILY 03/23/20 07/24/21 History Budesonide/Formoterol Fumarate 2 puff INHALATION RT-BID 07/24/21 07/24/21 History [Symbicort 160-4.5 Mcg Inhaler] Fluticasone Propion/Salmeterol 1 puff INHALATION RT-BID 07/24/21 07/24/21 History [Wixela 250-50 Inhub] Glucosam/George-Msm1/C/Tyler/Bosw 1 tab PO DAILY 07/24/21 07/24/21 History [Glucosamine-Chondroitin Tablet] Metoprolol Succinate (ER) [Toprol 100 mg PO DAILY 07/24/21 07/24/21 History Xl] NIFEdipine [NIFEdipine ER] 30 mg PO DAILY 07/24/21 07/24/21 History Tolterodine Tartrate [Detrol LA] 2 mg PO DAILY 07/24/21 07/24/21 History Allergies Allergy/AdvReac Type Severity Reaction Status Date / Time orange juice [[place]] Allergy Rash/Hives Verified 07/24/21 20:26 ciprofloxacin AdvReac Diarrhea Verified 07/24/21 20:26 gluten AdvReac Nausea & Verified 07/24/21 20:26 Vomiting & Diarrhea Physical Exam Vitals: Vital Signs Temp Pulse Resp BP Pulse Ox 07/25/21 06:11 69 18 113/54 98 07/25/21 04:08 66 18 128/70 95 07/24/21 22:45 98.2 F 86 22 135/75 95 07/24/21 20:00 79 136/73 95 07/24/21 19:07 79 20 118/63 97 07/24/21 18:50 20 07/24/21 18:19 99.4 F 84 16 120/68 91 L Intake and Output 07/24/21 07/25/21 07/25/21 22:59 06:59 14:59 Other: Weight 68.039 kg GENERAL EXAM: Alert, very pleasant, 85-year-old white female, on 3 L of oxygen and the pulse ox of 98% comfortable in no apparent distress. HEAD: Normocephalic/atraumatic. EYES: Normal reaction of pupils, equal size. Conjunctiva pink, sclera white. NOSE: Clear with pink turbinates. THROAT: No erythema or exudates. NECK: No masses, no JVD, no thyroid enlargement, no adenopathy. CHEST: No chest wall deformity. Symmetrical expansion. LUNGS: Equal air entry with no crackles, wheeze, rhonchi or dullness. CVS: Regular rate and rhythm, normal S1 and S2, no gallops, no murmurs, no rubs ABDOMEN: Soft, nontender. No hepatosplenomegaly, normal bowel sounds, no guarding or rigidity. EXTREMITIES: No clubbing, no edema, no cyanosis, 2+ pulses and upper and lower extremities. MUSCULOSKELETAL: Muscle strength and tone normal. SPINE: No scoliosis or deformity SKIN: No rashes CENTRAL NERVOUS SYSTEM: Alert and oriented -3. No focal deficits, tone is nor mal in all 4 extremities. PSYCHIATRIC: Alert and oriented -3. Appropriate affect. Intact judgment and insight. Results - Laboratory Findings CBC and BMP: 07/25/21 06:45 07/25/21 06:45 PT/INR, D-dimer PT 10.9 sec (9.0-12.0) 07/24/21 18:59 INR 1.0 (<1.2) 07/24/21 18:59 D-Dimer 0.47 mg/L FEU (<0.60) 07/25/21 06:45 Abnormal lab findings: Abnormal Labs 07/24/21 07/24/21 07/25/21 18:59 18:59 04:04 Sodium 134 L Potassium Carbon Dioxide 19 L BUN 20 H Glucose 113 H AST 101 H ALT 49 H Total Protein Albumin Urine Protein Trace H Urine Ketones Trace H Coronavirus (PCR) Detected A 07/25/21 06:45 Sodium Potassium 5.4 H Carbon Dioxide BUN Glucose 146 H AST 94 H ALT 52 H Total Protein 6.1 L Albumin 3.4 L Urine Protein Urine Ketones Coronavirus (PCR) - Diagnostic Findings Chest x-ray: report reviewed, image reviewed Additional studies: EKG reviewed Assessment and Plan Plan: Assessment: #1. Acute hypoxic respiratory failure related to acute COVID-19 pneumonia, with onset of symptoms 6 days ago. Patient is not vaccinated for COVID-19 and did not receive monoclonal antibody. Will be started on Remdesivir #2. History of recurrent pulmonary embolism, on lifelong anticoagulation with Eliquis. Which will be restarted today #3. History of chronic bronchial asthma, unspecified, active right now #4. Hypertension #5. GERD/reflux #6. Anxiety Plan: Continue Decadron 6 mg daily We'll start the patient on Remdesivir We will restart patient's home dose Eliquis Discontinue Lovenox Add Albuterol inhaler, Symbicort inhaler Continue COVID-19 vitamins Home medications will be restarted We'll continue to follow her clinical course I performed a history & physical examination of the patient and discussed their management with my nurse practitioner, Joi Arroyo. I reviewed the nurse practitioner's note and agree with the documented findings and plan of care. Lung sounds are positive for crackles throughout the lung espino. The findings and the impression was discussed with the patient. I attest to the documentation by the nurse practitioner. Time with Patient: Greater than 30
[2021-07-25] MEDS ORDERED: ALBUTEROL HFA INHALER INHALATION PRN (09:22)
[2021-07-25] MEDS: dexAMETHasone 2 MG TAB PO SCH (09:32)
[2021-07-25] MEDS: CHOLECALCIFEROL 25 MCG (1000 IU) TABLET PO SCH ×2 (09:33→22:21)
[2021-07-25] MEDS: PANTOPRAZOLE 40 MG TABLET PO SCH (09:33)
[2021-07-25] MEDS: OXYBUTYNIN XL 5 MG TAB.ER.24 PO SCH (09:33)
[2021-07-25] MEDS: ASPIRIN 81 MG PO SCH (09:34)
[2021-07-25] MEDS: ASCORBIC ACID 500 MG TAB PO SCH ×2 (09:34→22:21)
[2021-07-25] MEDS: METOPROLOL SUCCINATE (ER) 100 MG TAB.ER.24H PO SCH (09:34)
[2021-07-25] MEDS: ZINC SULFATE 220 MG CAP PO SCH (09:34)
[2021-07-25] MEDS: VIT A,C & E-LUTEIN-MINERALS 1 EACH TAB PO SCH (09:35)
[2021-07-25] MEDS: NIFEdipine XL 30 MG TAB.ER.24 PO SCH (09:35)
[2021-07-25] MEDS: APIXABAN 5 MG TAB PO SCH ×2 (09:35→22:21)
[2021-07-25] MEDS ORDERED: REMDESIVIR 200 MG in SODIUM CHLORIDE 0.9% 250 ML IVPB ONE (10:00)
[2021-07-25] MEDS: ALBUTEROL HFA INHALER INHALATION SCH ×3 (13:00→20:32)
--- NOTE | 2021-07-25 18:37 | P.HPIM ---
History of Present Illness H&P Date: 07/25/21 Chief Complaint: COVID-19 infection 85-year-old female patient, with history of COPD/asthma, hypertension, PE presents to the ED by ambulance for evaluation. Patient states that she has had symptoms of generalized weakness, cough, congestion, fever, diffuse myalgias and dyspnea for the past 6 days or so, and she states that her symptoms have been getting worse. Patient states that she recently tested positive for Covid. Patient states that she has not been vaccinated for Covid. Patient states that "the whole family has Covid". Patient denies receiving monoclonal antibody treatment for Covid. Patient denies trauma or injury, headache, focal neuro deficit, neck pain or stiffness, sore throat, chest pain, hemoptysis, palpitations, syncope, abdominal pain, nausea/vomiting/diarrhea, bloody or melanotic stool, dysuria/hematuria/urinary frequency/urinary symptoms, leg swelling or pain, or any other symptoms or complaints. EKG Findings:: Sinus rhythm, single PAC, ventricular rate of 79 bpm, normal [place] and QRS intervals, normal QT interval, normal axis, no ST or T-wave abnormality Chest x-ray showed bilateral lower lobe pneumonia. COVID-19 PCR test was positive in the emergency department, CBC was within normal limits, d-dimer was 0.47, sodium is 134, potassium is 4.9, chloride is 105, CO2 is 19, BUN is 20, creatinine 0.83, lactic acid was 0.8, AST was 101, ALT was 49, alkaline phosphatase was 92, troponin was less than 0.012, proBNP was 503, urinalysis showed trace protein and trace ketones, no evidence of infection. Review of Systems REVIEW OF SYSTEMS: CONSTITUTIONAL: Fever/chills/malaise. HEENT: No recent visual problems or hearing problems. Denied any sore throat. CARDIOVASCULAR: No chest pain, orthopnea, PND, no palpitations, no syncope. PULMONARY: shortness of breath, no cough, no hemoptysis. GASTROINTESTINAL: No diarrhea, no nausea, no vomiting, no abdominal pain. NEUROLOGICAL: No headaches, no weakness, no numbness. HEMATOLOGICAL: Denies any bleeding or petechiae. GENITOURINARY: Denies any burning micturition, frequency, or urgency. MUSCULOSKELETAL/RHEUMATOLOGICAL: Denies any joint pain, swelling, or any muscle pain. ENDOCRINE: Denies any polyuria or polydipsia. The rest of the 14-point review of systems is negative. Past Medical History Past Medical History: Asthma, COPD, Hypertension, Pulmonary Embolus (PE) Additional Past Medical History / Comment(s): Previous history of pulmonary embolism approximately 8 years ago, celiac disease, bronchial asthma, hypertension, acid reflux, History of Any Multi-Drug Resistant Organisms: None Reported Past Surgical History: Appendectomy, Hysterectomy Past Anesthesia/Blood Transfusion Reactions: No Reported Reaction Past Psychological History: Anxiety Past Alcohol Use History: None Reported Past Drug Use History: None Reported - Past Family History Mother History Unknown: Yes Father Family Medical History: Cancer (lung) Medications and Allergies Home Medications Medication Instructions Recorded Confirmed Type Montelukast [Singulair] 10 mg PO HS 10/22/16 07/24/21 History Atorvastatin Calcium [Lipitor] 20 mg PO HS #30 tab 06/01/18 07/24/21 Rx Apixaban [Eliquis] 5 mg PO BID 11/02/18 07/24/21 History Vit C/E/Zn/Coppr/Lutein/Zeaxan 1 cap PO BID 11/02/18 07/24/21 History [Preservision Areds 2 Softgel] Aspirin EC [Ecotrin Low Dose] 81 mg PO DAILY 03/23/20 07/24/21 History Omeprazole 20 mg PO DAILY 03/23/20 07/24/21 History Budesonide/Formoterol Fumarate 2 puff INHALATION RT-BID 07/24/21 07/24/21 History [Symbicort 160-4.5 Mcg Inhaler] Fluticasone Propion/Salmeterol 1 puff INHALATION RT-BID 07/24/21 07/24/21 History [Wixela 250-50 Inhub] Glucosam/George-Msm1/C/Tyler/Bosw 1 tab PO DAILY 07/24/21 07/24/21 History [Glucosamine-Chondroitin Tablet] Metoprolol Succinate (ER) [Toprol 100 mg PO DAILY 07/24/21 07/24/21 History Xl] NIFEdipine [NIFEdipine ER] 30 mg PO DAILY 07/24/21 07/24/21 History Tolterodine Tartrate [Detrol LA] 2 mg PO DAILY 07/24/21 07/24/21 History Allergies Allergy/AdvReac Type Severity Reaction Status Date / Time orange juice [[place]] Allergy Rash/Hives Verified 07/24/21 20:26 ciprofloxacin AdvReac Diarrhea Verified 07/24/21 20:26 gluten AdvReac Nausea & Verified 07/24/21 20:26 Vomiting & Diarrhea Physical Exam Vitals: Vital Signs Temp Pulse Resp BP Pulse Ox 07/25/21 06:11 69 18 113/54 98 07/25/21 04:08 66 18 128/70 95 07/24/21 22:45 98.2 F 86 22 135/75 95 07/24/21 20:00 79 136/73 95 07/24/21 19:07 79 20 118/63 97 07/24/21 18:50 20 07/24/21 18:19 99.4 F 84 16 120/68 91 L Intake and Output 07/24/21 07/25/21 07/25/21 22:59 06:59 14:59 Other: Weight 68.039 kg HEAD: Normocephalic/atraumatic. EYES: Normal reaction of pupils, equal size. Conjunctiva pink, sclera white. NECK: No masses, no JVD, no thyroid enlargement, no adenopathy. CHEST: No chest wall deformity. Symmetrical expansion. LUNGS: Equal air entry with no crackles, wheeze, rhonchi or dullness. CVS: Regular rate and rhythm, normal S1 and S2, no gallops, no murmurs, no rubs ABDOMEN: Soft, nontender. No hepatosplenomegaly, normal bowel sounds, no guarding or rigidity. EXTREMITIES: No clubbing, no edema, no cyanosis, 2+ pulses and upper and lower extremities. MUSCULOSKELETAL: Muscle strength and tone normal. SKIN: No rashes CENTRAL NERVOUS SYSTEM: Alert and oriented -3. No focal deficits, tone is normal in all 4 extremities. PSYCHIATRIC: Alert and oriented -3. Appropriate affect. Intact judgment and insight. Results CBC & Chem 7: 07/25/21 06:45 07/25/21 06:45 Labs: Abnormal Lab Results - Last 24 Hours (Table) 07/24/21 07/24/21 07/25/21 Range/Units 18:59 18:59 04:04 Sodium 134 L (137-145) mmol/L Potassium (3.5-5.1) mmol/L Carbon Dioxide 19 L (22-30) mmol/L BUN 20 H (7-17) mg/dL Glucose 113 H (74-99) mg/dL AST 101 H (14-36) U/L ALT 49 H (4-34) U/L Total Protein (6.3-8.2) g/dL Albumin (3.5-5.0) g/dL Urine Protein Trace H (Negative) Urine Ketones Trace H (Negative) Coronavirus (PCR) Detected A (Not Detectd) 07/25/21 Range/Units 06:45 Sodium (137-145) mmol/L Potassium 5.4 H (3.5-5.1) mmol/L Carbon Dioxide (22-30) mmol/L BUN (7-17) mg/dL Glucose 146 H (74-99) mg/dL AST 94 H (14-36) U/L ALT 52 H (4-34) U/L Total Protein 6.1 L (6.3-8.2) g/dL Albumin 3.4 L (3.5-5.0) g/dL Urine Protein (Negative) Urine Ketones (Negative) Coronavirus (PCR) (Not Detectd) Assessment and Plan Assessment: 1. Acute hypoxic respiratory failure - Continue with O2 and titrate FiO2 keeping O2 saturation greater than 89% 2. COVID-19 pneumonia - Patient has been evaluated by critical care; patient is not vaccinated for COVID-19 with onset of symptoms about 5-6 days ago; she does qualify for REM therapy - Continue with Decadron 6 mg daily, COVID-19 vitamin cocktail; continue with home anticoagulation; Lovenox has been discontinued 3. Recent pulmonary embolism; patient is currently on lifelong anticoagulation therapy; Eliquis 5 mg by mouth twice a day 4. Asthma/COPD; not in exacerbation; continue with home inhaler therapy; Singulair 10 mg daily 5. Hypertension; metoprolol 100 mg daily; nifedipine 30 mg daily 6. Hyperlipidemia; Lipitor 20 mg by mouth daily at bedtime 7. Urinary retention; continue with Detrol LA 2 mg daily DVT prophylaxis; SCDs/systemic anticoagulation CODE STATUS; full code
[2021-07-25] MEDS: SYMBICORT 160-4.5 MCG INHALER INHALATION SCH (20:32)
[2021-07-25] MEDS: MONTELUKAST 10 MG TAB PO SCH (22:21)
[2021-07-25] MEDS: ATORVASTATIN 20 MG TAB PO SCH (22:21)
[2021-07-26] MEDS: VIT A,C & E-LUTEIN-MINERALS 1 EACH TAB PO SCH ×3 (00:32→20:15)
[2021-07-26 07:13] LABS: ALT 50 U/L (4-34); AST 94 U/L (14-36); African American GFR (CKD) 85 (>60 ml/min/1.73 sqM); Albumin 3.1 g/dL (3.5-5.0); Albumin/Globulin Ratio 1.1; Alkaline Phosphatase 86 U/L (38-126); Anion Gap 7 mmol/L; Blood Urea Nitrogen 22 mg/dL (7-17); Calcium 9.1 mg/dL (8.4-10.2); Carbon Dioxide 23 mmol/L (22-30); Chloride 107 mmol/L (98-107); Globulin 2.7 g/dL; Glucose 106 mg/dL (74-99); LDH 964 U/L (313-618); Non-African American GFR(CKD) 74 (>60 ml/min/1.73 sqM); Potassium 4.8 mmol/L (3.5-5.1); Sodium 137 mmol/L (137-145); Total Bilirubin 0.3 mg/dL (0.2-1.3); Total Protein 5.8 g/dL (6.3-8.2)
[2021-07-26 07:31] LABS: C Reactive Protein <0.5 mg/dL (<1.0)
[2021-07-26] MEDS: SYMBICORT 160-4.5 MCG INHALER INHALATION SCH ×2 (07:59→20:50)
[2021-07-26] MEDS: ALBUTEROL HFA INHALER INHALATION SCH ×4 (07:59→20:50)
[2021-07-26] MEDS: ZINC SULFATE 220 MG CAP PO SCH (08:56)
[2021-07-26] MEDS: ASCORBIC ACID 500 MG TAB PO SCH ×2 (08:56→20:15)
[2021-07-26] MEDS: MIDODRINE 5 MG TAB PO SCH ×3 (08:56→16:47)
[2021-07-26] MEDS: APIXABAN 5 MG TAB PO SCH ×2 (08:57→20:15)
[2021-07-26] MEDS: PANTOPRAZOLE 40 MG TABLET PO SCH (08:57)
[2021-07-26] MEDS: OXYBUTYNIN XL 5 MG TAB.ER.24 PO SCH (08:57)
[2021-07-26] MEDS: CHOLECALCIFEROL 25 MCG (1000 IU) TABLET PO SCH ×2 (08:57→20:15)
[2021-07-26] MEDS: ASPIRIN 81 MG PO SCH (08:57)
[2021-07-26] MEDS: NIFEdipine XL 30 MG TAB.ER.24 PO SCH (08:57)
[2021-07-26] MEDS: dexAMETHasone 2 MG TAB PO SCH (08:57)
[2021-07-26 09:09] LABS: HCT 42.2 % (37.2-46.3); HGB 13.3 g/dL (12.0-15.0); MCH 26.8 pg (27.0-32.0); MCHC 31.5 g/dL (32.0-37.0); MCV 85.1 fL (80.0-97.0); Mean Platelet Volume 11.1 fL (9.5-12.2); Platelet Count 232 X 10*3/uL (140-440); RBC 4.96 X 10*6/uL (4.10-5.20); RDW 15.2 % (11.5-14.5); WBC 11.44 X 10*3/uL (4.50-10.00)
[2021-07-26] MEDS: METOPROLOL SUCCINATE (ER) 100 MG TAB.ER.24H PO SCH (11:06)
[2021-07-26] MEDS: REMDESIVIR 100 MG in SODIUM CHLORIDE 0.9% 250 ML IVPB SCH (11:10)
[2021-07-26 11:26] LABS: Basophils # (A) 0.01 X 10*3/uL (0.00-0.10); Basophils % (A) 0.1 %; Eosinophils # (A) 0 X 10*3/uL (0.04-0.35); Eosinophils % (A) 0 %; Lymphocytes # (A) 2.06 X 10*3/uL (0.90-5.00); Monocytes # (A) 1.51 X 10*3/uL (0.20-1.00); Monocytes % (A) 13.2 %; Neutrophils # (A) 7.81 X 10*3/uL (1.80-7.70); Neutrophils % (A) 68.3 %
--- NOTE | 2021-07-26 11:36 | P.PN ---
Subjective Progress Note Date: 07/26/21 07/26/2021, I'm seeing this patient for a follow-up. She is a case of COVID-19 related pneumonia with secondary hypoxic respiratory failure. Her chest x-ray showing lower lobe pulmonary infiltrates. She is currently on 4 L about 2 by nasal cannula with a pulse ox of 97%. She is on Decadron 6 mg by mouth daily and Remdesivir per protocol. She is also on aspirin. She takes long-term articulation with Eliquis for her recurrent pulmonary embolism in the past. In terms of her inflammatory markers, she has a LDH level of 964, and her d-dimer was 0.47 at time of admission. Rest of the blood work from today is essentially within normal limits, normal renal function and electrolytes. There is some mild transaminitis. Objective - Vital Signs Vital signs: Vital Signs Temp 97.8 F 07/26/21 10:09 Pulse 76 07/26/21 10:09 Resp 16 07/26/21 10:09 BP 113/56 07/26/21 10:09 Pulse Ox 97 07/26/21 10:09 Intake & Output 07/25/21 07/26/21 07/26/21 18:59 06:59 18:59 Intake Total 400 236 Balance 400 236 Weight 68.039 kg Intake: Oral 400 236 Other: Voiding Method Bedside Commode # Voids 2 - Exam GENERAL EXAM: Alert, very pleasant, 85-year-old white female, on 3 L of oxygen and the pulse ox of 98% comfortable in no apparent distress. HEAD: Normocephalic/atraumatic. EYES: Normal reaction of pupils, equal size. Conjunctiva pink, sclera white. NOSE: Clear with pink turbinates. THROAT: No erythema or exudates. NECK: No masses, no JVD, no thyroid enlargement, no adenopathy. CHEST: No chest wall deformity. Symmetrical expansion. LUNGS: Equal air entry with no crackles, wheeze, rhonchi or dullness. CVS: Regular rate and rhythm, normal S1 and S2, no gallops, no murmurs, no rubs ABDOMEN: Soft, nontender. No hepatosplenomegaly, normal bowel sounds, no guarding or rigidity. EXTREMITIES: No clubbing, no edema, no cyanosis, 2+ pulses and upper and lower extremities. MUSCULOSKELETAL: Muscle strength and tone normal. SPINE: No scoliosis or deformity SKIN: No rashes CENTRAL NERVOUS SYSTEM: Alert and oriented -3. No focal deficits, tone is normal in all 4 extremities. PSYCHIATRIC: Alert and oriented -3. Appropriate affect. Intact judgment and insight. - Labs CBC & Chem 7: 07/26/21 06:08 07/26/21 06:08 Labs: Abnormal Lab Results - Last 24 Hours (Table) 07/25/21 07/26/21 07/26/21 Range/Units 06:45 06:08 06:08 WBC 11.44 H (4.50-10.00) X 10*3/uL MCH 26.8 L (27.0-32.0) pg MCHC 31.5 L (32.0-37.0) g/dL RDW 15.2 H (11.5-14.5) % Immature Gran # 0.05 H (0.00-0.04) X 10*3/uL Neutrophils # 7.81 H (1.80-7.70) X 10*3/uL Monocytes # 1.51 H (0.20-1.00) X 10*3/uL Eosinophils # 0 L (0.04-0.35) X 10*3/uL BUN 22 H (7-17) mg/dL Glucose 106 H (74-99) mg/dL Ferritin 930.0 H (10.0-291.0) ng/mL AST 94 H (14-36) U/L ALT 50 H (4-34) U/L Lactate Dehydrogenase 964 H (313-618) U/L Total Protein 5.8 L (6.3-8.2) g/dL Albumin 3.1 L (3.5-5.0) g/dL Microbiology - Last 24 Hours (Table) 07/24/21 18:50 Blood Culture - Preliminary Blood No Growth after 24 hours Assessment and Plan Plan: #1. Acute hypoxic respiratory failure related to acute COVID-19 pneumonia, with onset of symptoms 6 days ago. Patient is not vaccinated for COVID-19 and did not receive monoclonal antibody. Will be started on Remdesivir #2. History of recurrent pulmonary embolism, on lifelong anticoagulation with Eliquis. Which will be restarted today #3. History of chronic bronchial asthma, unspecified, active right now #4. Hypertension #5. GERD/reflux #6. Anxiety Plan: patient is clinically stable Keep oxygen 4 L per minute nasal cannula Continue Decadron 6 mg daily continue Remdesivir Continue Eliquis Repeat inflammatory markers in a.m. Continue Symbicort inhaler as maintenance and albuterol which is reminiscent basis Multivitamins Will follow
[2021-07-26] MEDS: ATORVASTATIN 20 MG TAB PO SCH (20:15)
[2021-07-26] MEDS: MONTELUKAST 10 MG TAB PO SCH (20:16)
[2021-07-27] MEDS: SYMBICORT 160-4.5 MCG INHALER INHALATION SCH ×2 (08:00→19:44)
[2021-07-27] MEDS: ALBUTEROL HFA INHALER INHALATION SCH ×4 (08:00→19:44)
[2021-07-27] MEDS: ASPIRIN 81 MG PO SCH (08:42)
[2021-07-27] MEDS: MIDODRINE 5 MG TAB PO SCH ×3 (08:42→17:25)
[2021-07-27] MEDS: PANTOPRAZOLE 40 MG TABLET PO SCH (08:43)
[2021-07-27] MEDS: ZINC SULFATE 220 MG CAP PO SCH (08:43)
[2021-07-27] MEDS: APIXABAN 5 MG TAB PO SCH ×2 (08:43→23:07)
[2021-07-27] MEDS: OXYBUTYNIN XL 5 MG TAB.ER.24 PO SCH (08:43)
[2021-07-27] MEDS: CHOLECALCIFEROL 25 MCG (1000 IU) TABLET PO SCH ×2 (08:43→23:07)
[2021-07-27] MEDS: dexAMETHasone 2 MG TAB PO SCH (08:43)
[2021-07-27] MEDS: ASCORBIC ACID 500 MG TAB PO SCH ×2 (08:43→23:07)
[2021-07-27] MEDS: VIT A,C & E-LUTEIN-MINERALS 1 EACH TAB PO SCH ×2 (08:44→23:07)
[2021-07-27] MEDS: NIFEdipine XL 30 MG TAB.ER.24 PO SCH (08:44)
[2021-07-27] MEDS: METOPROLOL SUCCINATE (ER) 100 MG TAB.ER.24H PO SCH (08:44)
[2021-07-27] MEDS: REMDESIVIR 100 MG in SODIUM CHLORIDE 0.9% 250 ML IVPB SCH (10:26)
--- NOTE | 2021-07-27 10:39 | P.PN ---
Subjective Progress Note Date: 07/26/21 Principal diagnosis: Acute hypoxic respiratory failure COVID-19 pneumonia Recent pulmonary embolism 85-year-old female patient, with history of COPD/asthma, hypertension, PE presents to the ED by ambulance for evaluation. Patient states that she has had symptoms of generalized weakness, cough, congestion, fever, diffuse myalgias and dyspnea for the past 6 days or so, and she states that her symptoms have been getting worse. Patient states that she recently tested positive for Covid. Patient states that she has not been vaccinated for Covid. Patient states that "the whole family has Covid". Patient denies receiving monoclonal antibody treatment for Covid. Patient denies trauma or injury, headache, focal neuro deficit, neck pain or stiffness, sore throat, chest pain, hemoptysis, palpitations, syncope, abdominal pain, nausea/vomiting/diarrhea, bloody or melanotic stool, dysuria/hematuria/urinary frequency/urinary symptoms, leg swelling or pain, or any other symptoms or complaints. EKG Findings:: Sinus rhythm, single PAC, ventricular rate of 79 bpm, normal PA and QRS intervals, normal QT interval, normal axis, no ST or T-wave abnormality Chest x-ray showed bilateral lower lobe pneumonia. COVID-19 PCR test was positive in the emergency department, CBC was within normal limits, d-dimer was 0.47, sodium is 134, potassium is 4.9, chloride is 105, CO2 is 19, BUN is 20, creatinine 0.83, lactic acid was 0.8, AST was 101, ALT was 49, alkaline phosphatase was 92, troponin was less than 0.012, proBNP was 503, urinalysis showed trace protein and trace ketones, no evidence of infection. 07/26/2021; patient is seen and evaluated for a follow-up. Chest x-ray showing lower lobe pulmonary infiltrates. She is currently on 4 L about 2 by nasal cannula with a pulse ox of 97%. She is on Decadron 6 mg by mouth daily and Remdesivir per protocol. She is also on aspirin. She takes long-term articulation with Eliquis for her recurrent pulmonary embolism in the past. In terms of her inflammatory markers, she has a LDH level of 964, and her d-dimer was 0.47 at time of admission. Rest of the blood work from today is essentially within normal limits, normal renal function and electrolytes. There is some mild transaminitis. continue with oxygen 4 L per minute nasal cannula; Decadron 6 mg daily; Remdesivir; Eliquis; Continue Symbicort inhaler as maintenance and albuterol prn; Repeat inflammatory markers in a.m. Objective - Vital Signs Vital signs: Vital Signs Temp 97.8 F 07/26/21 10:09 Pulse 76 07/26/21 10:09 Resp 16 07/26/21 10:09 BP 113/56 07/26/21 10:09 Pulse Ox 97 07/26/21 10:09 Intake & Output 07/25/21 07/26/21 07/26/21 18:59 06:59 18:59 Intake Total 400 236 Balance 400 236 Weight 68.039 kg Intake: Oral 400 236 Other: Voiding Method Bedside Commode # Voids 2 - Exam HEAD: Normocephalic/atraumatic. EYES: Normal reaction of pupils, equal size. Conjunctiva pink, sclera white. NECK: No masses, no JVD, no thyroid enlargement, no adenopathy. CHEST: No chest wall deformity. Symmetrical expansion. LUNGS: Equal air entry with no crackles, wheeze, rhonchi or dullness. CVS: Regular rate and rhythm, normal S1 and S2, no gallops, no murmurs, no rubs ABDOMEN: Soft, nontender. No hepatosplenomegaly, normal bowel sounds, no guarding or rigidity. EXTREMITIES: No clubbing, no edema, no cyanosis, 2+ pulses and upper and lower extremities. MUSCULOSKELETAL: Muscle strength and tone normal. SKIN: No rashes CENTRAL NERVOUS SYSTEM: Alert and oriented -3. No focal deficits, tone is normal in all 4 extremities. PSYCHIATRIC: Alert and oriented -3. Appropriate affect. Intact judgment and insight. - Labs CBC & Chem 7: 07/26/21 06:08 07/26/21 06:08 Labs: Abnormal Lab Results - Last 24 Hours (Table) 07/26/21 07/26/21 Range/Units 06:08 06:08 WBC 11.44 H (4.50-10.00) X 10*3/uL MCH 26.8 L (27.0-32.0) pg MCHC 31.5 L (32.0-37.0) g/dL RDW 15.2 H (11.5-14.5) % Immature Gran # 0.05 H (0.00-0.04) X 10*3/uL Neutrophils # 7.81 H (1.80-7.70) X 10*3/uL Monocytes # 1.51 H (0.20-1.00) X 10*3/uL Eosinophils # 0 L (0.04-0.35) X 10*3/uL BUN 22 H (7-17) mg/dL Glucose 106 H (74-99) mg/dL AST 94 H (14-36) U/L ALT 50 H (4-34) U/L Lactate Dehydrogenase 964 H (313-618) U/L Total Protein 5.8 L (6.3-8.2) g/dL Albumin 3.1 L (3.5-5.0) g/dL Microbiology - Last 24 Hours (Table) 07/24/21 18:50 Blood Culture - Preliminary Blood No Growth after 24 hours Assessment and Plan Assessment: 1. Acute hypoxic respiratory failure - Continue with O2 and titrate FiO2 keeping O2 saturation greater than 89% 2. COVID-19 pneumonia - Patient has been evaluated by critical care; patient is not vaccinated for COVID-19 with onset of symptoms about 5-6 days ago; she does qualify for REM therapy - Continue with Decadron 6 mg daily, COVID-19 vitamin cocktail; continue with home anticoagulation; Lovenox has been discontinued 3. Recent pulmonary embolism; patient is currently on lifelong anticoagulation therapy; Eliquis 5 mg by mouth twice a day 4. Asthma/COPD; not in exacerbation; continue with home inhaler therapy; Singulair 10 mg daily 5. Hypertension; metoprolol 100 mg daily; nifedipine 30 mg daily 6. Hyperlipidemia; Lipitor 20 mg by mouth daily at bedtime 7. Urinary retention; continue with Detrol LA 2 mg daily DVT prophylaxis; SCDs/systemic anticoagulation CODE STATUS; full code
--- NOTE | 2021-07-27 15:04 | P.PN ---
Subjective Progress Note Date: 07/27/21 Principal diagnosis: COVID-19 pneumonia This is a 85-year-old white female patient with past surgical history of chronic bronchial asthma, hypertension, previous history of recurrent pulmonary embolism, on Eliquis, celiac disease, who came into the hospital on 07/24/2021 with complaints of generalized weakness, cough, congestion, fever, diffuse myalgias and dyspnea for the past 6 days. She recently tested positive for COVID-19. Patient is not vaccinated for COVID-19. Her whole family is infected with COVID. She has not received any monoclonal antibody. Chest x-ray showed bilateral lower lobe pneumonia. COVID-19 PCR test was positive in the emergency department, CBC was within normal limits, d-dimer was 0.47, sodium is 134, potassium is 4.9, chloride is 105, CO2 is 19, BUN is 20, creatinine 0.83, lactic acid was 0.8, AST was 101, ALT was 49, alkaline phosphatase was 92, troponin was less than 0.012, proBNP was 503, urinalysis showed trace protein and trace ke tones, no evidence of infection. She is on 3 L of oxygen pulse ox of 98%, afebrile. She was started on Decadron 6 mg daily, COVID-19 vitamins, she was placed on Lovenox 40 mg daily although she takes Eliquis at home for history of recurrent pulmonary embolism. We were asked to see the patient in consultation for shortness of breath related to acute COVID-19 pneumonia 07/26/2021, I'm seeing this patient for a follow-up. She is a case of COVID-19 related pneumonia with secondary hypoxic respiratory failure. Her chest x-ray showing lower lobe pulmonary infiltrates. She is currently on 4 L about 2 by nasal cannula with a pulse ox of 97%. She is on Decadron 6 mg by mouth daily and Remdesivir per protocol. She is also on aspirin. She takes long-term articulation with Eliquis for her recurrent pulmonary embolism in the past. In terms of her inflammatory markers, she has a LDH level of 964, and her d-dimer was 0.47 at time of admission. Rest of the blood work from today is essentially within normal limits, normal renal function and electrolytes. There is some mild transaminitis. On 07/27/2021 patient seen in follow-up on medical surgical floor. She is currently on 5 L of oxygen, her pulse ox is 90-95%. Still has a congested cough, but appears to be in no acute distress, lung sounds are positive some bibasilar crackles, she continues on Remdesivir. Today is day 3 of Remdesivir treatment, she continues on Decadron 6 mg daily, she is on home dose Eliquis 5 mg by mouth twice daily for history of recurrent pulmonary embolisms in the past. Chest x-ray is pending for today. Today's labs are still pending. Clinically patient seems to be stable, she is fatigued, but no acute distress. She is weak. She is afebrile, hemodynamically she is stable. Blood culture has shown no growth. Denies any nausea vomiting or diarrhea. Objective - Vital Signs Vital signs: Vital Signs Temp 98.1 F 07/27/21 14:00 Pulse 86 07/27/21 14:00 Resp 16 07/27/21 14:00 BP 130/66 07/27/21 14:00 Pulse Ox 95 07/27/21 14:00 Intake & Output 07/26/21 07/27/21 07/27/21 18:59 06:59 18:59 Intake Total 354 236 Balance 354 236 Intake: Oral 354 236 Other: Voiding Method Bedside Commode Bedside Commode # Voids 3 3 - Exam GENERAL EXAM: Alert, very pleasant, 85-year-old white female, looks fatigued, worn out, but no distress, on 5 L of oxygen a pulse ox of 95% comfortable in no apparent distress. HEAD: Normocephalic/atraumatic. EYES: Normal reaction of pupils, equal size. Conjunctiva pink, sclera white. NOSE: Clear with pink turbinates. THROAT: No erythema or exudates. NECK: No masses, no JVD, no thyroid enlargement, no adenopathy. CHEST: No chest wall deformity. Symmetrical expansion. LUNGS: Equal air entry with diffuse crackles at bilateral bases CVS: Regular rate and rhythm, normal S1 and S2, no gallops, no murmurs, no rubs ABDOMEN: Soft, nontender. No hepatosplenomegaly, normal bowel sounds, no guarding or rigidity. EXTREMITIES: No clubbing, no edema, no cyanosis, 2+ pulses and upper and lower extremities. MUSCULOSKELETAL: Muscle strength and tone normal. SPINE: No scoliosis or deformity SKIN: No rashes CENTRAL NERVOUS SYSTEM: Alert and oriented -3. No focal deficits, tone is normal in all 4 extremities. PSYCHIATRIC: Alert and oriented -3. Appropriate affect. Intact judgment and insight. - Labs CBC & Chem 7: 07/26/21 06:08 07/26/21 06:08 Labs: Microbiology - Last 24 Hours (Table) 07/24/21 18:50 Blood Culture - Preliminary Blood No Growth after 48 hours Assessment and Plan Plan: Assessment: #1. Acute hypoxic respiratory failure related to acute COVID-19 pneumonia, with onset of symptoms 6 days ago. Patient is not vaccinated for COVID-19 and did not receive monoclonal antibody. Started on Remdesivir on 07/25/2021 #2. History of recurrent pulmonary embolism, on lifelong anticoagulation with Eliquis. Which will be restarted today #3. History of chronic bronchial asthma, unspecified, active right now #4. Hypertension #5. GERD/reflux #6. Anxiety Plan: Continue Decadron 6 mg daily She continues on Remdesivir, and today is day 3 of treatment Continue Eliquis 5 mg twice daily Albuterol inhaler, Symbicort inhaler Continue COVID-19 vitamins Inflammatory markers will be followed Basic labs tomorrow, follow up chest x-ray We'll continue to follow her clinical course I performed a history & physical examination of the patient and discussed their management with my nurse practitioner, Joi Arroyo. I reviewed the nurse practitioner's note and agree with the documented findings and plan of care. Lung sounds are positive for crackles throughout the lung espino. The findings and the impression was discussed with the patient. I attest to the documentation by the nurse practitioner. Time with Patient: Less than 30
[2021-07-27] MEDS: MONTELUKAST 10 MG TAB PO SCH (23:07)
[2021-07-27] MEDS: ATORVASTATIN 20 MG TAB PO SCH (23:07)
--- NOTE | 2021-07-28 08:13 | XR ---
EXAMINATION TYPE: XR chest 1V portable DATE OF EXAM: 07/28/2021 COMPARISON: 07/24/2021 HISTORY: Cough TECHNIQUE: Single frontal view of the chest is obtained. FINDINGS: Bilateral airspace disease noted. Heart size stable. No pleural effusion or pneumothorax. Question underlying COPD. Diffuse osteopenia. IMPRESSION: Correlate for multifocal pneumonia
[2021-07-28] MEDS: ALBUTEROL HFA INHALER INHALATION SCH ×4 (08:41→21:48)
[2021-07-28] MEDS: SYMBICORT 160-4.5 MCG INHALER INHALATION SCH ×2 (08:41→21:48)
[2021-07-28] MEDS: MIDODRINE 5 MG TAB PO SCH ×3 (09:52→17:41)
[2021-07-28] MEDS: ZINC SULFATE 220 MG CAP PO SCH (09:52)
[2021-07-28] MEDS: NIFEdipine XL 30 MG TAB.ER.24 PO SCH (09:53)
[2021-07-28] MEDS: ASPIRIN 81 MG PO SCH (09:53)
[2021-07-28] MEDS: VIT A,C & E-LUTEIN-MINERALS 1 EACH TAB PO SCH ×2 (09:53→20:43)
[2021-07-28] MEDS: dexAMETHasone 2 MG TAB PO SCH (09:53)
[2021-07-28] MEDS: PANTOPRAZOLE 40 MG TABLET PO SCH (09:53)
[2021-07-28] MEDS: METOPROLOL SUCCINATE (ER) 100 MG TAB.ER.24H PO SCH (09:54)
[2021-07-28] MEDS: CHOLECALCIFEROL 25 MCG (1000 IU) TABLET PO SCH ×2 (09:54→20:43)
[2021-07-28] MEDS: APIXABAN 5 MG TAB PO SCH ×2 (09:54→20:43)
[2021-07-28] MEDS: ASCORBIC ACID 500 MG TAB PO SCH ×2 (09:54→20:43)
[2021-07-28] MEDS: OXYBUTYNIN XL 5 MG TAB.ER.24 PO SCH (09:54)
[2021-07-28] MEDS: REMDESIVIR 100 MG in SODIUM CHLORIDE 0.9% 250 ML IVPB SCH ×2 (10:10→12:54)
--- NOTE | 2021-07-28 11:11 | P.PN ---
Subjective Progress Note Date: 07/27/21 Principal diagnosis: Acute hypoxic respiratory failure COVID-19 pneumonia Recent pulmonary embolism 85-year-old female patient, with history of COPD/asthma, hypertension, PE presents to the ED by ambulance for evaluation. Patient states that she has had symptoms of generalized weakness, cough, congestion, fever, diffuse myalgias and dyspnea for the past 6 days or so, and she states that her symptoms have been getting worse. Patient states that she recently tested positive for Covid. Patient states that she has not been vaccinated for Covid. Patient states that "the whole family has Covid". Patient denies receiving monoclonal antibody treatment for Covid. Patient denies trauma or injury, headache, focal neuro deficit, neck pain or stiffness, sore throat, chest pain, hemoptysis, palpitations, syncope, abdominal pain, nausea/vomiting/diarrhea, bloody or melanotic stool, dysuria/hematuria/urinary frequency/urinary symptoms, leg swelling or pain, or any other symptoms or complaints. EKG Findings:: Sinus rhythm, single PAC, ventricular rate of 79 bpm, normal AK and QRS intervals, normal QT interval, normal axis, no ST or T-wave abnormality Chest x-ray showed bilateral lower lobe pneumonia. COVID-19 PCR test was positive in the emergency department, CBC was within normal limits, d-dimer was 0.47, sodium is 134, potassium is 4.9, chloride is 105, CO2 is 19, BUN is 20, creatinine 0.83, lactic acid was 0.8, AST was 101, ALT was 49, alkaline phosphatase was 92, troponin was less than 0.012, proBNP was 503, urinalysis showed trace protein and trace ketones, no evidence of infection. 07/26/2021; patient is seen and evaluated for a follow-up. Chest x-ray showing lower lobe pulmonary infiltrates. She is currently on 4 L about 2 by nasal cannula with a pulse ox of 97%. She is on Decadron 6 mg by mouth daily and Remdesivir per protocol. She is also on aspirin. She takes long-term articulation with Eliquis for her recurrent pulmonary embolism in the past. In terms of her inflammatory markers, she has a LDH level of 964, and her d-dimer was 0.47 at time of admission. Rest of the blood work from today is essentially within normal limits, normal renal function and electrolytes. There is some mild transaminitis. continue with oxygen 4 L per minute nasal cannula; Decadron 6 mg daily; Remdesivir; Eliquis; Continue Symbicort inhaler as maintenance and albuterol prn; Repeat inflammatory markers in a.m. 07/27/2021 Patient seen and evaluated in follow-up; discussed with nursing staff. She is currently on 5 L of oxygen, her pulse ox is 90-95%. Vital signs are reviewed stable with temperature of 98.1, pulse 66, respirations 16 and blood pressure 130/66, patient is saturating above 95% on 5 L Chest x-ray is ordered and pending patient remains on Remdesivir, day#3, Decadron 6 mg daily, Eliquis 5 mg by mouth twice daily Pulmonary on board and recommending to continue with current treatment as indicated above along with albuterol and Symbicort inhaler, COVID-19 vitamin cocktail; continue to follow inflammatory markers periodically Objective - Vital Signs Vital signs: Vital Signs Temp 98 F 07/27/21 10:43 Pulse 96 07/27/21 10:43 Resp 16 07/27/21 10:43 BP 127/57 07/27/21 10:43 Pulse Ox 90 L 07/27/21 10:43 Intake & Output 07/26/21 07/27/21 07/27/21 18:59 06:59 18:59 Intake Total 354 118 Balance 354 118 Intake: Oral 354 118 Other: Voiding Method Bedside Commode Bedside Commode # Voids 3 3 - Exam HEAD: Normocephalic/atraumatic. EYES: Normal reaction of pupils, equal size. Conjunctiva pink, sclera white. NECK: No masses, no JVD, no thyroid enlargement, no adenopathy. CHEST: No chest wall deformity. Symmetrical expansion. LUNGS: Equal air entry with no crackles, wheeze, rhonchi or dullness. CVS: Regular rate and rhythm, normal S1 and S2, no gallops, no murmurs, no rubs ABDOMEN: Soft, nontender. No hepatosplenomegaly, normal bowel sounds, no guarding or rigidity. EXTREMITIES: No clubbing, no edema, no cyanosis, 2+ pulses and upper and lower extremities. MUSCULOSKELETAL: Muscle strength and tone normal. SKIN: No rashes CENTRAL NERVOUS SYSTEM: Alert and oriented -3. No focal deficits, tone is normal in all 4 extremities. PSYCHIATRIC: Alert and oriented -3. Appropriate affect. Intact judgment and insight. - Labs CBC & Chem 7: 07/26/21 06:08 07/26/21 06:08 Labs: Microbiology - Last 24 Hours (Table) 07/24/21 18:50 Blood Culture - Preliminary Blood No Growth after 48 hours Assessment and Plan Assessment: 1. Acute hypoxic respiratory failure - Continue with O2 and titrate FiO2 keeping O2 saturation greater than 89% 2. COVID-19 pneumonia - Patient has been evaluated by critical care; patient is not vaccinated for COVID-19 with onset of symptoms about 5-6 days ago; she does qualify for REM therapy - Continue with Decadron 6 mg daily, COVID-19 vitamin cocktail; continue with home anticoagulation; Lovenox has been discontinued 3. Recent pulmonary embolism; patient is currently on lifelong anticoagulation therapy; Eliquis 5 mg by mouth twice a day 4. Asthma/COPD; not in exacerbation; continue with home inhaler therapy; Singulair 10 mg daily 5. Hypertension; metoprolol 100 mg daily; nifedipine 30 mg daily 6. Hyperlipidemia; Lipitor 20 mg by mouth daily at bedtime 7. Urinary retention; continue with Detrol LA 2 mg daily DVT prophylaxis; SCDs/systemic anticoagulation CODE STATUS; full code
[2021-07-28 11:39] LABS: HGB 13.2 g/dL (12.0-15.0); MCHC 32.2 g/dL (32.0-37.0); MCV 83.8 fL (80.0-97.0); Mean Platelet Volume 11.2 fL (9.5-12.2); Platelet Count 261 X 10*3/uL (140-440); RBC 4.89 X 10*6/uL (4.10-5.20); RDW 14.8 % (11.5-14.5); WBC 9.84 X 10*3/uL (4.50-10.00)
[2021-07-28 12:06] LABS: African American GFR (CKD) 78.5 (60.0-200.0); BUN/Creat Ratio 22.13 Ratio (12.00-20.00); Blood Urea Nitrogen 17.7 mg/dL (9.0-27.0); Calcium 8.7 mg/dL (8.7-10.3); Chloride 105 mmol/L (96-109); Glucose 95 mg/dL (70-110); Non-African American GFR(CKD) 67.7 (60.0-200.0); Potassium 4.6 mmol/L (3.5-5.5); Sodium 139 mmol/L (135-145)
[2021-07-28 12:20] LABS: Basophils # (A) 0.01 X 10*3/uL (0.00-0.10); Basophils % (A) 0.1 %; Eosinophils # (A) 0 X 10*3/uL (0.04-0.35); Eosinophils % (A) 0 %; Lymphocytes # (A) 2.01 X 10*3/uL (0.90-5.00); Lymphocytes % (A) 20.4 %; Monocytes # (A) 1.79 X 10*3/uL (0.20-1.00); Monocytes % (A) 18.2 %; Neutrophils # (A) 5.97 X 10*3/uL (1.80-7.70); Neutrophils % (A) 60.7 %
--- NOTE | 2021-07-28 13:07 | P.PN ---
Subjective Progress Note Date: 07/28/21 This is a 85-year-old white female patient with past surgical history of chronic bronchial asthma, hypertension, previous history of recurrent pulmonary embolism, on Eliquis, celiac disease, who came into the hospital on 07/24/2021 with complaints of generalized weakness, cough, congestion, fever, diffuse myalgias and dyspnea for the past 6 days. She recently tested positive for COVID-19. Patient is not vaccinated for COVID-19. Her whole family is infected with COVID. She has not received any monoclonal antibody. Chest x-ray showed bilateral lower lobe pneumonia. COVID-19 PCR test was positive in the emergency department, CBC was within normal limits, d-dimer was 0.47, sodium is 134, potas sium is 4.9, chloride is 105, CO2 is 19, BUN is 20, creatinine 0.83, lactic acid was 0.8, AST was 101, ALT was 49, alkaline phosphatase was 92, troponin was less than 0.012, proBNP was 503, urinalysis showed trace protein and trace ketones, no evidence of infection. She is on 3 L of oxygen pulse ox of 98%, afebrile. She was started on Decadron 6 mg daily, COVID-19 vitamins, she was placed on Hermelinda enox 40 mg daily although she takes Eliquis at home for history of recurrent pulmonary embolism. We were asked to see the patient in consultation for shortness of breath related to acute COVID-19 pneumonia 07/26/2021, I'm seeing this patient for a follow-up. She is a case of COVID-19 related pneumonia with secondary hypoxic respiratory failure. Her chest x-ray showing lower lobe pulmonary infiltrates. She is currently on 4 L about 2 by nasal cannula with a pulse ox of 97%. She is on Decadron 6 mg by mouth daily and Remdesivir per protocol. She is also on aspirin. She takes long-term ar ticulation with Eliquis for her recurrent pulmonary embolism in the past. In terms of her inflammatory markers, she has a LDH level of 964, and her d-dimer was 0.47 at time of admission. Rest of the blood work from today is essentially within normal limits, normal renal function and electrolytes. There is some mild transaminitis. On 07/27/2021 patient seen in follow-up on medical surgical floor. She is currently on 5 L of oxygen, her pulse ox is 90-95%. Still has a congested cough, but appears to be in no acute distress, lung sounds are positive some bibasilar crackles, she continues on Remdesivir. Today is day 3 of Remdesivir treatment, she continues on Decadron 6 mg daily, she is on home dose Eliquis 5 mg by mouth twice daily for history of recurrent pulmonary embolisms in the [facility] t. Chest x-ray is pending for today. Today's labs are still pending. Clinically patient seems to be stable, she is fatigued, but no acute distress. She is weak. She is afebrile, hemodynamically she is stable. Blood culture has shown no growth. Denies any nausea vomiting or diarrhea. 2020, the patient remains on 5 L of oxygen by nasal cannula. Her pulse ox currently is on 95%. She is complaining the course of Remdesivir and she is on day #4. She is also on Decadron 6 mg by mouth daily. She remains on Eliquis on a long-term basis regarding previous history of recurrent pulmonary embolism. The patient had labs today that showed a white cell count 9.3. Hemoglobin was 13.2. She continues to have some lymphopenia. Her LDH level from yesterday was 964, CRP was less than 0.5. Otherwise, the rest of the electrodes are normal, renal function is normal. She is afebrile. No other significant events otherwise for now. Overall, she remains quite weak and debilitated. Nevertheless, she reports improvement in her stamina. Blood cultures been negative. Still diminished and the patient is unable to complete a full meal. Her follow-up chest x-ray that was done today showed bilateral airspace disease, stable without any interval change compared to her admission date chest x-ray on 07/24/2021. The patient continues to have crackles in the lung bases bilaterally. In fact, the chest x-ray may also show some interval worsening on the right. Objective - Vital Signs Vital signs: Vital Signs Temp 98.1 F 07/28/21 05:55 Pulse 89 07/28/21 05:55 Resp 22 07/28/21 05:55 BP 108/55 07/28/21 05:55 Pulse Ox 95 07/28/21 08:42 Intake & Output 07/27/21 07/28/21 07/28/21 18:59 06:59 18:59 Intake Total 472 Balance 472 Intake: Oral 472 Other: Voiding Method Bedside Commode # Voids 3 # Bowel Movements 1 - Exam GENERAL EXAM: Alert, very pleasant, 85-year-old white female, on 5 L of oxygen and the pulse ox of 98% comfortable in no apparent distress. HEAD: Normocephalic/atraumatic. EYES: Normal reaction of pupils, equal size. Conjunctiva pink, sclera white. NOSE: Clear with pink turbinates. THROAT: No erythema or exudates. NECK: No masses, no JVD, no thyroid enlargement, no adenopathy. CHEST: No chest wall deformity. Symmetrical expansion. LUNGS: Equal air entry with no crackles, wheeze, rhonchi or dullness. CVS: Regular rate and rhythm, normal S1 and S2, no gallops, no murmurs, no rubs ABDOMEN: Soft, nontender. No hepatosplenomegaly, normal bowel sounds, no guarding or rigidity. EXTREMITIES: No clubbing, no edema, no cyanosis, 2+ pulses and upper and lower extremities. MUSCULOSKELETAL: Muscle strength and tone normal. SPINE: No scoliosis or deformity SKIN: No rashes CENTRAL NERVOUS SYSTEM: Alert and oriented -3. No focal deficits, tone is normal in all 4 extremities. PSYCHIATRIC: Alert and oriented -3. Appropriate affect. Intact judgment and insight. - Labs CBC & Chem 7: 07/28/21 07:17 07/28/21 07:17 Labs: Abnormal Lab Results - Last 24 Hours (Table) 07/28/21 07/28/21 Range/Units 07:17 07:17 RDW 14.8 H (11.5-14.5) % Immature Gran # 0.06 H (0.00-0.04) X 10*3/uL Monocytes # 1.79 H (0.20-1.00) X 10*3/uL Eosinophils # 0 L (0.04-0.35) X 10*3/uL Carbon Dioxide 20.0 L (21.6-31.8) mmol/L Anion Gap 14.00 H (4.00-12.00) mmol/L BUN/Creatinine Ratio 22.13 H (12.00-20.00) Ratio Microbiology - Last 24 Hours (Table) 07/24/21 18:50 Blood Culture - Preliminary Blood No Growth after 72 hours Assessment and Plan Plan: #1. Acute hypoxic respiratory failure related to acute COVID-19 pneumonia, with onset of symptoms 6 days ago. Patient is not vaccinated for COVID-19 and did not receive monoclonal antibody. Will be started on Remdesivir and currently she is on day #4 and she is also on Decadron. Clinically stable. The patient continues to be on 5 L of oxygen by nasal cannula. Chest x-ray is stable, probably slightly worse on the right. Nevertheless, overall condition is s table. #2. History of recurrent pulmonary embolism, on lifelong anticoagulation with Eliquis. Which will be restarted today #3. History of chronic bronchial asthma, unspecified, active right now #4. Hypertension #5. GERD/reflux #6. Anxiety Plan: patient is clinically stable Keep oxygen 5 L per minute nasal cannula Continue Decadron 6 mg daily continue Remdesivir a #4 Continue Eliquis Repeat inflammatory markers in a.m. Continue Symbicort inhaler as maintenance and albuterol which is reminiscent basis Multivitamins Will follow, attempt to wean down FiO2 to maintain saturation above 90%, I will cut her down to 4 L.
[2021-07-28 20:18] LABS: C Reactive Protein <0.30 mg/dL (0.00-0.80)
[2021-07-28] MEDS: MONTELUKAST 10 MG TAB PO SCH (20:43)
[2021-07-28] MEDS: ATORVASTATIN 20 MG TAB PO SCH (20:43)
[2021-07-28 21:00] LABS: LDH 401 U/L (120-246)
--- NOTE | 2021-07-28 22:16 | P.PN ---
Subjective Progress Note Date: 07/28/21 Principal diagnosis: Acute hypoxic respiratory failure COVID-19 pneumonia Recent pulmonary embolism 85-year-old female patient, with history of COPD/asthma, hypertension, PE presents to the ED by ambulance for evaluation. Patient states that she has had symptoms of generalized weakness, cough, congestion, fever, diffuse myalgias and dyspnea for the past 6 days or so, and she states that her symptoms have been getting worse. Patient states that she recently tested positive for Covid. Patient states that she has not been vaccinated for Covid. Patient states that "the whole family has Covid". Patient denies receiving monoclonal antibody treatment for Covid. Patient denies trauma or injury, headache, focal neuro deficit, neck pain or stiffness, sore throat, chest pain, hemoptysis, palpitations, syncope, abdominal pain, nausea/vomiting/diarrhea, bloody or melanotic stool, dysuria/hematuria/urinary frequency/urinary symptoms, leg swelling or pain, or any other symptoms or complaints. EKG Findings:: Sinus rhythm, single PAC, ventricular rate of 79 bpm, normal HI and QRS intervals, normal QT interval, normal axis, no ST or T-wave abnormality Chest x-ray showed bilateral lower lobe pneumonia. COVID-19 PCR test was positive in the emergency department, CBC was within normal limits, d-dimer was 0.47, sodium is 134, potassium is 4.9, chloride is 105, CO2 is 19, BUN is 20, creatinine 0.83, lactic acid was 0.8, AST was 101, ALT was 49, alkaline phosphatase was 92, troponin was less than 0.012, proBNP was 503, urinalysis showed trace protein and trace ketones, no evidence of infection. 07/26/2021; patient is seen and evaluated for a follow-up. Chest x-ray showing lower lobe pulmonary infiltrates. She is currently on 4 L about 2 by nasal cannula with a pulse ox of 97%. She is on Decadron 6 mg by mouth daily and Remdesivir per protocol. She is also on aspirin. She takes long-term articulation with Eliquis for her recurrent pulmonary embolism in the past. In terms of her inflammatory markers, she has a LDH level of 964, and her d-dimer was 0.47 at time of admission. Rest of the blood work from today is essentially within normal limits, normal renal function and electrolytes. There is some mild transaminitis. continue with oxygen 4 L per minute nasal cannula; Decadron 6 mg daily; Remdesivir; Eliquis; Continue Symbicort inhaler as maintenance and albuterol prn; Repeat inflammatory markers in a.m. 07/27/2021 Patient seen and evaluated in follow-up; discussed with nursing staff. She is currently on 5 L of oxygen, her pulse ox is 90-95%. Vital signs are reviewed stable with temperature of 98.1, pulse 66, respirations 16 and blood pressure 130/66, patient is saturating above 95% on 5 L Chest x-ray is ordered and pending patient remains on Remdesivir, day#3, Decadron 6 mg daily, Eliquis 5 mg by mouth twice daily Pulmonary on board and recommending to continue with current treatment as indicated above along with albuterol and Symbicort inhaler, COVID-19 vitamin cocktail; continue to follow inflammatory markers periodically 07/28/2021 Patient is seen and evaluated at beside in the room. Patient's case was discussed with the nursing staff. Currently patient is and remains on oxygen by nasal cannula. Patient's pulse ox is on 95%. Patient is currently on a course of Remdesivir, Decadron, and Eliquiz (due to her history of recurrent pulmonary embolism). Patient's WBC count is 9.3, Hb levels are 13.2 along with lymphopenia. Patient's renal function is normal, patient is afrebrile, and no major or significant changes in the past 24 hours. Patient is currently weak but reports that she is feeling slightly better with an improvement in her stamina. Patient's repeat chest x ray shows bilateral airspace disease which is stable without any change compared to her chest x ray done on 07/24/2021. However, patient continues to have crackles in lung bases bilaterally with slight worsening on the right. Objective - Vital Signs Vital signs: Vital Signs Temp 98.1 F 07/28/21 05:55 Pulse 89 07/28/21 05:55 Resp 22 07/28/21 05:55 BP 108/55 07/28/21 05:55 Pulse Ox 95 07/28/21 08:42 Intake & Output 07/27/21 07/28/21 07/28/21 18:59 06:59 18:59 Intake Total 472 Balance 472 Intake: Oral 472 Other: # Voids 3 # Bowel Movements 1 - Exam HEAD: Normocephalic/atraumatic. EYES: Normal reaction of pupils, equal size. Conjunctiva pink, sclera white. NECK: No masses, no JVD, no thyroid enlargement, no adenopathy. CHEST: No chest wall deformity. Symmetrical expansion. LUNGS: Equal air entry with no crackles, wheeze, rhonchi or dullness. CVS: Regular rate and rhythm, normal S1 and S2, no gallops, no murmurs, no rubs ABDOMEN: Soft, nontender. No hepatosplenomegaly, normal bowel sounds, no guarding or rigidity. EXTREMITIES: No clubbing, no edema, no cyanosis, 2+ pulses and upper and lower extremities. MUSCULOSKELETAL: Muscle strength and tone normal. SKIN: No rashes CENTRAL NERVOUS SYSTEM: Alert and oriented -3. No focal deficits, tone is normal in all 4 extremities. PSYCHIATRIC: Alert and oriented -3. Appropriate affect. Intact judgment and insight. - Labs CBC & Chem 7: 07/28/21 07:17 07/28/21 07:17 Labs: Microbiology - Last 24 Hours (Table) 07/24/21 18:50 Blood Culture - Preliminary Blood No Growth after 72 hours Assessment and Plan Assessment: 1. Acute hypoxic respiratory failure - Continue with O2 and titrate FiO2 keeping O2 saturation greater than 89% 2. COVID-19 pneumonia - Patient has been evaluated by critical care; patient is not vaccinated for COVID-19 with onset of symptoms about 5-6 days ago; she does qualify for REM therapy - Continue with Decadron 6 mg daily, COVID-19 vitamin cocktail; continue with home anticoagulation; Lovenox has been discontinued 3. Recent pulmonary embolism; patient is currently on lifelong anticoagulation therapy; Eliquis 5 mg by mouth twice a day 4. Asthma/COPD; not in exacerbation; continue with home inhaler therapy; Singulair 10 mg daily 5. Hypertension; metoprolol 100 mg daily; nifedipine 30 mg daily 6. Hyperlipidemia; Lipitor 20 mg by mouth daily at bedtime 7. Urinary retention; continue with Detrol LA 2 mg daily DVT prophylaxis; SCDs/systemic anticoagulation CODE STATUS; full code
[2021-07-29] MEDS: SYMBICORT 160-4.5 MCG INHALER INHALATION SCH ×2 (06:02→20:17)
[2021-07-29] MEDS: ALBUTEROL HFA INHALER INHALATION SCH ×4 (06:02→20:17)
[2021-07-29] MEDS: MIDODRINE 5 MG TAB PO SCH ×3 (07:50→15:51)
[2021-07-29] MEDS: APIXABAN 5 MG TAB PO SCH ×2 (08:01→21:00)
[2021-07-29] MEDS: OXYBUTYNIN XL 5 MG TAB.ER.24 PO SCH (08:01)
[2021-07-29] MEDS: dexAMETHasone 2 MG TAB PO SCH (08:02)
[2021-07-29] MEDS: ASCORBIC ACID 500 MG TAB PO SCH ×2 (08:02→23:20)
[2021-07-29] MEDS: METOPROLOL SUCCINATE (ER) 100 MG TAB.ER.24H PO SCH (08:02)
[2021-07-29] MEDS: ZINC SULFATE 220 MG CAP PO SCH (08:02)
[2021-07-29] MEDS: PANTOPRAZOLE 40 MG TABLET PO SCH (08:02)
[2021-07-29] MEDS: ASPIRIN 81 MG PO SCH (08:02)
[2021-07-29] MEDS: CHOLECALCIFEROL 25 MCG (1000 IU) TABLET PO SCH ×2 (08:02→21:00)
[2021-07-29] MEDS: NIFEdipine XL 30 MG TAB.ER.24 PO SCH (08:02)
[2021-07-29] MEDS: VIT A,C & E-LUTEIN-MINERALS 1 EACH TAB PO SCH ×2 (08:03→21:00)
[2021-07-29] MEDS: REMDESIVIR 100 MG in SODIUM CHLORIDE 0.9% 250 ML IVPB SCH (10:41)
[2021-07-29 13:15] LABS: LDH 404 U/L (120-246)
[2021-07-29 13:33] VITALS: BMI 29.2
[2021-07-29 13:57] LABS: C Reactive Protein <0.30 mg/dL (0.00-0.80)
--- NOTE | 2021-07-29 16:55 | P.PN ---
Subjective Progress Note Date: 07/29/21 This is a 85-year-old white female patient with past surgical history of chronic bronchial asthma, hypertension, previous history of recurrent pulmonary embolism, on Eliquis, celiac disease, who came into the hospital on 07/24/2021 with complaints of generalized weakness, cough, congestion, fever, diffuse myalgias and dyspnea for the past 6 days. She recently tested positive for COVID-19. Patient is not vaccinated for COVID-19. Her whole family is infected with COVID. She has not received any monoclonal antibody. Chest x-ray showed bilateral lower lobe pneumonia. COVID-19 PCR test was positive in the emergency department, CBC was within normal limits, d-dimer was 0.47, sodium is 134, potas sium is 4.9, chloride is 105, CO2 is 19, BUN is 20, creatinine 0.83, lactic acid was 0.8, AST was 101, ALT was 49, alkaline phosphatase was 92, troponin was less than 0.012, proBNP was 503, urinalysis showed trace protein and trace ketones, no evidence of infection. She is on 3 L of oxygen pulse ox of 98%, afebrile. She was started on Decadron 6 mg daily, COVID-19 vitamins, she was placed on Hermelinda enox 40 mg daily although she takes Eliquis at home for history of recurrent pulmonary embolism. We were asked to see the patient in consultation for shortness of breath related to acute COVID-19 pneumonia 07/26/2021, I'm seeing this patient for a follow-up. She is a case of COVID-19 related pneumonia with secondary hypoxic respiratory failure. Her chest x-ray showing lower lobe pulmonary infiltrates. She is currently on 4 L about 2 by nasal cannula with a pulse ox of 97%. She is on Decadron 6 mg by mouth daily and Remdesivir per protocol. She is also on aspirin. She takes long-term ar ticulation with Eliquis for her recurrent pulmonary embolism in the past. In terms of her inflammatory markers, she has a LDH level of 964, and her d-dimer was 0.47 at time of admission. Rest of the blood work from today is essentially within normal limits, normal renal function and electrolytes. There is some mild transaminitis. On 07/27/2021 patient seen in follow-up on medical surgical floor. She is currently on 5 L of oxygen, her pulse ox is 90-95%. Still has a congested cough, but appears to be in no acute distress, lung sounds are positive some bibasilar crackles, she continues on Remdesivir. Today is day 3 of Remdesivir treatment, she continues on Decadron 6 mg daily, she is on home dose Eliquis 5 mg by mouth twice daily for history of recurrent pulmonary embolisms in the [facility] t. Chest x-ray is pending for today. Today's labs are still pending. Clinically patient seems to be stable, she is fatigued, but no acute distress. She is weak. She is afebrile, hemodynamically she is stable. Blood culture has shown no growth. Denies any nausea vomiting or diarrhea. 2020, the patient remains on 5 L of oxygen by nasal cannula. Her pulse ox currently is on 95%. She is complaining the course of Remdesivir and she is on day #4. She is also on Decadron 6 mg by mouth daily. She remains on Eliquis on a long-term basis regarding previous history of recurrent pulmonary embolism. The patient had labs today that showed a white cell count 9.3. Hemoglobin was 13.2. She continues to have some lymphopenia. Her LDH level from yesterday was 964, CRP was less than 0.5. Otherwise, the rest of the electrodes are normal, renal function is normal. She is afebrile. No other significant events otherwise for now. Overall, she remains quite weak and debilitated. Nevertheless, she reports improvement in her stamina. Blood cultures been negative. Still diminished and the patient is unable to complete a full meal. Her follow-up chest x-ray that was done today showed bilateral airspace disease, stable without any interval change compared to her admission date chest x-ray on 07/24/2021. The patient continues to have crackles in the lung bases bilaterally. In fact, the chest x-ray may also show some interval worsening on the right. 121, the patient is sitting up on a chair and she is currently on 40s about 2 by nasal cannula with a pulse ox of 92%. She remains on Decadron 6 mg daily and the patient is taking her first day of Remdesivir treatment today and she'll be completing the course. She is also on Eliquis regarding her previous history of recurrent pulmonary embolism. No new complaints otherwise for now. Inflammatory markers are showing a drop in the LDH which was as low as 404 and her CRP is less than 0.3. No fever. No chills. No other issues otherwise. No recent chest x-ray. The most recent chest x-ray was done yesterday on 07/28/2001 and it showed persistent bilateral pulmonary infiltrates with airspace disease along with some underlying diffuse osteopenia. She is inquiring about going home. Objective - Vital Signs Vital signs: Vital Signs Temp 98 F 07/29/21 13:28 Pulse 80 07/29/21 13:28 Resp 16 07/29/21 13:28 BP 125/67 07/29/21 13:28 Pulse Ox 92 L 07/29/21 13:28 Intake & Output 07/28/21 07/29/21 07/29/21 18:59 06:59 18:59 Intake Total 900 400 Balance 900 400 Weight 68.039 kg Intake: Oral 900 400 Other: Voiding Method Bedside Commode # Voids 1 - Exam GENERAL EXAM: Alert, very pleasant, 85-year-old white female, on 5 L of oxygen and the pulse ox of 98% comfortable in no apparent distress. HEAD: Normocephalic/atraumatic. EYES: Normal reaction of pupils, equal size. Conjunctiva pink, sclera white. NOSE: Clear with pink turbinates. THROAT: No erythema or exudates. NECK: No masses, no JVD, no thyroid enlargement, no adenopathy. CHEST: No chest wall deformity. Symmetrical expansion. LUNGS: Equal air entry with no crackles, wheeze, rhonchi or dullness. CVS: Regular rate and rhythm, normal S1 and S2, no gallops, no murmurs, no rubs ABDOMEN: Soft, nontender. No hepatosplenomegaly, normal bowel sounds, no guarding or rigidity. EXTREMITIES: No clubbing, no edema, no cyanosis, 2+ pulses and upper and lower extremities. MUSCULOSKELETAL: Muscle strength and tone normal. SPINE: No scoliosis or deformity SKIN: No rashes CENTRAL NERVOUS SYSTEM: Alert and oriented -3. No focal deficits, tone is normal in all 4 extremities. PSYCHIATRIC: Alert and oriented -3. Appropriate affect. Intact judgment and insight. - Labs CBC & Chem 7: 07/28/21 07:17 07/28/21 07:17 Labs: Abnormal Lab Results - Last 24 Hours (Table) 07/28/21 07/29/21 Range/Units 07:17 07:38 Lactate Dehydrogenase 401 H 404 H (120-246) U/L Microbiology - Last 24 Hours (Table) 07/24/21 18:50 Blood Culture - Preliminary Blood No Growth after 96 hours Assessment and Plan Plan: #1. Acute hypoxic respiratory failure related to acute COVID-19 pneumonia, with onset of symptoms 6 days ago. Patient is not vaccinated for COVID-19 and did not receive monoclonal antibody. Will be started on Remdesivir and currently she is on day #5and she is also on Decadron. Clinically stable. The patient continues to be on 4 L of oxygen by nasal cannula. Chest x-ray is stable, probably slightly worse on the right. Nevertheless, overall condition is stable. She has stable and the patient is feeling better and the patient feels that she can go home with oxygen to complete her recovery. #2. History of recurrent pulmonary embolism, on lifelong anticoagulation with Eliquis. Which will be restarted today #3. History of chronic bronchial asthma, unspecified, active right now #4. Hypertension #5. GERD/reflux #6. Anxiety Plan: patient is clinically stable Keep oxygen for L per minute nasal cannula Continue Decadron 6 mg daily continue Remdesivir on day #5 Continue Eliquis Repeat inflammatory markers in a.m. and her markers improved considerably and the LDH is low Continue Symbicort inhaler as maintenance and albuterol which is reminiscent basis Multivitamins Her condition is stable. Possible discharge home on Decadron, Eliquis and home O2. She has a good social support system. She'll be living with her daughter. She will also need home care.
[2021-07-29] MEDS: ATORVASTATIN 20 MG TAB PO SCH (21:00)
[2021-07-29] MEDS: MONTELUKAST 10 MG TAB PO SCH (21:00)
--- NOTE | 2021-07-30 01:40 | P.PN ---
Subjective Progress Note Date: 07/29/21 Principal diagnosis: Acute hypoxic respiratory failure COVID-19 pneumonia Recent pulmonary embolism 85-year-old female patient, with history of COPD/asthma, hypertension, PE presents to the ED by ambulance for evaluation. Patient states that she has had symptoms of generalized weakness, cough, congestion, fever, diffuse myalgias and dyspnea for the past 6 days or so, and she states that her symptoms have been getting worse. Patient states that she recently tested positive for Covid. Patient states that she has not been vaccinated for Covid. Patient states that "the whole family has Covid". Patient denies receiving monoclonal antibody treatment for Covid. Patient denies trauma or injury, headache, focal neuro deficit, neck pain or stiffness, sore throat, chest pain, hemoptysis, palpitations, syncope, abdominal pain, nausea/vomiting/diarrhea, bloody or melanotic stool, dysuria/hematuria/urinary frequency/urinary symptoms, leg swelling or pain, or any other symptoms or complaints. EKG Findings:: Sinus rhythm, single PAC, ventricular rate of 79 bpm, normal MN and QRS intervals, normal QT interval, normal axis, no ST or T-wave abnormality Chest x-ray showed bilateral lower lobe pneumonia. COVID-19 PCR test was positive in the emergency department, CBC was within normal limits, d-dimer was 0.47, sodium is 134, potassium is 4.9, chloride is 105, CO2 is 19, BUN is 20, creatinine 0.83, lactic acid was 0.8, AST was 101, ALT was 49, alkaline phosphatase was 92, troponin was less than 0.012, proBNP was 503, urinalysis showed trace protein and trace ketones, no evidence of infection. 07/26/2021; patient is seen and evaluated for a follow-up. Chest x-ray showing lower lobe pulmonary infiltrates. She is currently on 4 L about 2 by nasal cannula with a pulse ox of 97%. She is on Decadron 6 mg by mouth daily and Remdesivir per protocol. She is also on aspirin. She takes long-term articulation with Eliquis for her recurrent pulmonary embolism in the past. In terms of her inflammatory markers, she has a LDH level of 964, and her d-dimer was 0.47 at time of admission. Rest of the blood work from today is essentially within normal limits, normal renal function and electrolytes. There is some mild transaminitis. continue with oxygen 4 L per minute nasal cannula; Decadron 6 mg daily; Remdesivir; Eliquis; Continue Symbicort inhaler as maintenance and albuterol prn; Repeat inflammatory markers in a.m. 07/27/2021 Patient seen and evaluated in follow-up; discussed with nursing staff. She is currently on 5 L of oxygen, her pulse ox is 90-95%. Vital signs are reviewed stable with temperature of 98.1, pulse 66, respirations 16 and blood pressure 130/66, patient is saturating above 95% on 5 L Chest x-ray is ordered and pending patient remains on Remdesivir, day#3, Decadron 6 mg daily, Eliquis 5 mg by mouth twice daily Pulmonary on board and recommending to continue with current treatment as indicated above along with albuterol and Symbicort inhaler, COVID-19 vitamin cocktail; continue to follow inflammatory markers periodically 07/28/2021 Patient is seen and evaluated at beside in the room. Patient's case was discussed with the nursing staff. Currently patient is and remains on oxygen by nasal cannula. Patient's pulse ox is on 95%. Patient is currently on a course of Remdesivir, Decadron, and Eliquis (due to her history of recurrent pulmonary embolism). Patient's WBC count is 9.3, Hb levels are 13.2 along with lymphopenia. Patient's renal function is normal, patient is afrebrile, and no major or significant changes in the past 24 hours. Patient is currently weak but reports that she is feeling slightly better with an improvement in her stamina. Patient's repeat chest x ray shows bilateral airspace disease which is stable without any change compared to her chest x ray done on 07/24/2021. However, patient continues to have crackles in lung bases bilaterally with slight worsening on the right. 07/29/2021 Patient is seen and evaluated at beside in the room. Patient's case was discussed with the nursing staff. Patient remains on nasal cannula with a pulse ox of 92%. She reamins on Decadron, Remdesivir, and Eliquis due to her history of recurrent pulmonary embolism). Patient has no major complaints nor does there seem to be any significant changes from yesterday. Patient's LDH and CRP have trended downward. Patient is afebrile with no chills. Patient's last chest x ray was done on 07/28/2021 which indicated bilateral airspace disease. Patient has inquired about being able to go home. Objective - Vital Signs Vital signs: Vital Signs Temp 97.5 F L 07/29/21 10:16 Pulse 66 07/29/21 10:16 Resp 17 07/29/21 10:16 BP 107/66 07/29/21 10:16 Pulse Ox 93 L 07/29/21 10:16 Intake & Output 07/28/21 07/29/21 07/29/21 18:59 06:59 18:59 Intake Total 900 200 Balance 900 200 Intake: Oral 900 200 Other: Voiding Method Bedside Commode # Voids 1 - Exam HEAD: Normocephalic/atraumatic. EYES: Normal reaction of pupils, equal size. Conjunctiva pink, sclera white. NECK: No masses, no JVD, no thyroid enlargement, no adenopathy. CHEST: No chest wall deformity. Symmetrical expansion. LUNGS: Equal air entry with no crackles, wheeze, rhonchi or dullness. CVS: Regular rate and rhythm, normal S1 and S2, no gallops, no murmurs, no rubs ABDOMEN: Soft, nontender. No hepatosplenomegaly, normal bowel sounds, no guarding or rigidity. EXTREMITIES: No clubbing, no edema, no cyanosis, 2+ pulses and upper and lower extremities. MUSCULOSKELETAL: Muscle strength and tone normal. SKIN: No rashes CENTRAL NERVOUS SYSTEM: Alert and oriented -3. No focal deficits, tone is normal in all 4 extremities. PSYCHIATRIC: Alert and oriented -3. Appropriate affect. Intact judgment and insight. - Labs CBC & Chem 7: 07/28/21 07:17 07/28/21 07:17 Labs: Abnormal Lab Results - Last 24 Hours (Table) 07/28/21 Range/Units 07:17 Lactate Dehydrogenase 401 H (120-246) U/L Microbiology - Last 24 Hours (Table) 07/24/21 18:50 Blood Culture - Preliminary Blood No Growth after 96 hours Assessment and Plan Assessment: 1. Acute hypoxic respiratory failure - Continue with O2 and titrate FiO2 keeping O2 saturation greater than 89% 2. COVID-19 pneumonia - Patient has been evaluated by critical care; patient is not vaccinated for CO VID-19 with onset of symptoms about 5-6 days ago; she does qualify for REM therapy - Continue with Decadron 6 mg daily, COVID-19 vitamin cocktail; continue with home anticoagulation; Lovenox has been discontinued 3. Recent pulmonary embolism; patient is currently on lifelong anticoagulation therapy; Eliquis 5 mg by mouth twice a day 4. Asthma/COPD; not in exacerbation; continue with home inhaler therapy; Singulair 10 mg daily 5. Hypertension; metoprolol 100 mg daily; nifedipine 30 mg daily 6. Hyperlipidemia; Lipitor 20 mg by mouth daily at bedtime 7. Urinary retention; continue with Detrol LA 2 mg daily DVT prophylaxis; SCDs/systemic anticoagulation CODE STATUS; full code
[2021-07-30] MEDS: ALBUTEROL HFA INHALER INHALATION SCH ×3 (07:39→15:17)
[2021-07-30] MEDS: SYMBICORT 160-4.5 MCG INHALER INHALATION SCH (07:39)
[2021-07-30] MEDS: PANTOPRAZOLE 40 MG TABLET PO SCH (10:06)
[2021-07-30] MEDS: ASPIRIN 81 MG PO SCH (10:06)
[2021-07-30] MEDS: MIDODRINE 5 MG TAB PO SCH ×2 (10:06→12:53)
[2021-07-30] MEDS: VIT A,C & E-LUTEIN-MINERALS 1 EACH TAB PO SCH (10:06)
[2021-07-30] MEDS: APIXABAN 5 MG TAB PO SCH (10:07)
[2021-07-30] MEDS: METOPROLOL SUCCINATE (ER) 100 MG TAB.ER.24H PO SCH (10:07)
[2021-07-30] MEDS: OXYBUTYNIN XL 5 MG TAB.ER.24 PO SCH (10:07)
[2021-07-30] MEDS: ASCORBIC ACID 500 MG TAB PO SCH (10:08)
[2021-07-30] MEDS: NIFEdipine XL 30 MG TAB.ER.24 PO SCH (10:08)
[2021-07-30] MEDS: CHOLECALCIFEROL 25 MCG (1000 IU) TABLET PO SCH (10:09)
[2021-07-30] MEDS: dexAMETHasone 2 MG TAB PO SCH (10:09)
[2021-07-30] MEDS: ZINC SULFATE 220 MG CAP PO SCH (10:28)
--- NOTE | 2021-07-30 12:05 | P.PN ---
Subjective Progress Note Date: 07/30/21 This is a 85-year-old white female patient with past surgical history of chronic bronchial asthma, hypertension, previous history of recurrent pulmonary embolism, on Eliquis, celiac disease, who came into the hospital on 07/24/2021 with complaints of generalized weakness, cough, congestion, fever, diffuse myalgias and dyspnea for the past 6 days. She recently tested positive for COVID-19. Patient is not vaccinated for COVID-19. Her whole family is infected with COVID. She has not received any monoclonal antibody. Chest x-ray showed bilateral lower lobe pneumonia. COVID-19 PCR test was positive in the emergency department, CBC was within normal limits, d-dimer was 0.47, sodium is 134, potas sium is 4.9, chloride is 105, CO2 is 19, BUN is 20, creatinine 0.83, lactic acid was 0.8, AST was 101, ALT was 49, alkaline phosphatase was 92, troponin was less than 0.012, proBNP was 503, urinalysis showed trace protein and trace ketones, no evidence of infection. She is on 3 L of oxygen pulse ox of 98%, afebrile. She was started on Decadron 6 mg daily, COVID-19 vitamins, she was placed on Hermelinda enox 40 mg daily although she takes Eliquis at home for history of recurrent pulmonary embolism. We were asked to see the patient in consultation for shortness of breath related to acute COVID-19 pneumonia 07/26/2021, I'm seeing this patient for a follow-up. She is a case of COVID-19 related pneumonia with secondary hypoxic respiratory failure. Her chest x-ray showing lower lobe pulmonary infiltrates. She is currently on 4 L about 2 by nasal cannula with a pulse ox of 97%. She is on Decadron 6 mg by mouth daily and Remdesivir per protocol. She is also on aspirin. She takes long-term ar ticulation with Eliquis for her recurrent pulmonary embolism in the past. In terms of her inflammatory markers, she has a LDH level of 964, and her d-dimer was 0.47 at time of admission. Rest of the blood work from today is essentially within normal limits, normal renal function and electrolytes. There is some mild transaminitis. On 07/27/2021 patient seen in follow-up on medical surgical floor. She is currently on 5 L of oxygen, her pulse ox is 90-95%. Still has a congested cough, but appears to be in no acute distress, lung sounds are positive some bibasilar crackles, she continues on Remdesivir. Today is day 3 of Remdesivir treatment, she continues on Decadron 6 mg daily, she is on home dose Eliquis 5 mg by mouth twice daily for history of recurrent pulmonary embolisms in the [facility] t. Chest x-ray is pending for today. Today's labs are still pending. Clinically patient seems to be stable, she is fatigued, but no acute distress. She is weak. She is afebrile, hemodynamically she is stable. Blood culture has shown no growth. Denies any nausea vomiting or diarrhea. 2020, the patient remains on 5 L of oxygen by nasal cannula. Her pulse ox currently is on 95%. She is complaining the course of Remdesivir and she is on day #4. She is also on Decadron 6 mg by mouth daily. She remains on Eliquis on a long-term basis regarding previous history of recurrent pulmonary embolism. The patient had labs today that showed a white cell count 9.3. Hemoglobin was 13.2. She continues to have some lymphopenia. Her LDH level from yesterday was 964, CRP was less than 0.5. Otherwise, the rest of the electrodes are normal, renal function is normal. She is afebrile. No other significant events otherwise for now. Overall, she remains quite weak and debilitated. Nevertheless, she reports improvement in her stamina. Blood cultures been negative. Still diminished and the patient is unable to complete a full meal. Her follow-up chest x-ray that was done today showed bilateral airspace disease, stable without any interval change compared to her admission date chest x-ray on 07/24/2021. The patient continues to have crackles in the lung bases bilaterally. In fact, the chest x-ray may also show some interval worsening on the right. 121, the patient is sitting up on a chair and she is currently on 40s about 2 by nasal cannula with a pulse ox of 92%. She remains on Decadron 6 mg daily and the patient is taking her 5 day of Remdesivir treatment today and she'll be completing the course. She is also on Eliquis regarding her previous history of recurrent pulmonary embolism. No new complaints otherwise for now. Inflammatory markers are showing a drop in the LDH which was as low as 404 and her CRP is less than 0.3. No fever. No chills. No other issues otherwise. No recent chest x-ray. The most recent chest x-ray was done yesterday on 07/28/2001 and it showed persistent bilateral pulmonary infiltrates with airspace disease along with some underlying diffuse osteopenia. She is inquiring about going home. 07/30/2021, the patient remains on 4 L of oxygen. She remains on Decadron 6 mg daily. She is also on long-term and to coagulation with Eliquis regarding history of pulmonary embolism. the patient completed course of Remdesivir. Her condition is essentially stable. She is requiring oxygen. She still has crackles in the mid and lower lung espino bilaterally.blood work on today's evaluation is still pending. In fact I'm not sure if blood work has been done for today. Blood work from yesterday showed a low LDH of 404. No fever. No chills. No chest pain. No altered mentation. No other significant events overnight. He is tolerating her diet. Her chest x-ray from few days back showed persistent bilateral lower lobe pulmonary infiltrate and airspace disease in addition to underlying osteopenia. I think it's reasonable to discharge this patient home on home O2. Objective - Vital Signs Vital signs: Vital Signs Temp 97.8 F 07/30/21 10:00 Pulse 67 07/30/21 10:00 Resp 18 07/30/21 10:00 BP 166/65 07/30/21 10:00 Pulse Ox 90 L 07/30/21 10:00 Intake & Output 07/29/21 07/30/21 07/30/21 18:59 06:59 18:59 Intake Total 525 Output Total 1 Balance 525 -1 Weight 68.039 kg Intake: Oral 525 Output: Urine 1 Other: # Voids 5 1 - Exam GENERAL EXAM: Alert, very pleasant, 85-year-old white female, on 4 L of oxygen and the pulse ox of 98% comfortable in no apparent distress. HEAD: Normocephalic/atraumatic. EYES: Normal reaction of pupils, equal size. Conjunctiva pink, sclera white. NOSE: Clear with pink turbinates. THROAT: No erythema or exudates. NECK: No masses, no JVD, no thyroid enlargement, no adenopathy. CHEST: No chest wall deformity. Symmetrical expansion. LUNGS: Equal air entry with no crackles, wheeze, rhonchi or dullness. CVS: Regular rate and rhythm, normal S1 and S2, no gallops, no murmurs, no rubs ABDOMEN: Soft, nontender. No hepatosplenomegaly, normal bowel sounds, no guarding or rigidity. EXTREMITIES: No clubbing, no edema, no cyanosis, 2+ pulses and upper and lower extremities. MUSCULOSKELETAL: Muscle strength and tone normal. SPINE: No scoliosis or deformity SKIN: No rashes CENTRAL NERVOUS SYSTEM: Alert and oriented -3. No focal deficits, tone is normal in all 4 extremities. PSYCHIATRIC: Alert and oriented -3. Appropriate affect. Intact judgment and insight. - Labs CBC & Chem 7: 07/28/21 07:17 07/28/21 07:17 Labs: Abnormal Lab Results - Last 24 Hours (Table) 07/29/21 Range/Units 07:38 Lactate Dehydrogenase 404 H (120-246) U/L Microbiology - Last 24 Hours (Table) 07/24/21 18:50 Blood Culture - Preliminary Blood No Growth after 120 hours Assessment and Plan Plan: #1. Acute hypoxic respiratory failure related to acute COVID-19 pneumonia, with onset of symptoms 6 days ago. Patient is not vaccinated for COVID-19 and did not receive monoclonal antibody. Will be started on Remdesivir and currently she is on day #5and she is also on Decadron. Clinically stable. The patient continues to be on 4 L of oxygen by nasal cannula. Chest x-ray is stable, probably slightly worse on the right. Nevertheless, overall condition is stable. She has stable and the patient is feeling better and the patient feels that she can go home with oxygen to complete her recovery.his evaluation, no interval change in the patient's condition is still stable on 4 L of oxygen by nasal cannula #2. History of recurrent pulmonary embolism, on lifelong anticoagulation with Eliquis. Which will be restarted today #3. History of chronic bronchial asthma, unspecified, active right now #4. Hypertension #5. GERD/reflux #6. Anxiety Plan: patient is clinically stable Keep oxygen for L per minute nasal cannula Continue Decadron 6 mg daily the patient completed the course of Remdesivir Continue Eliquis Repeat inflammatory markers in a.m. and her markers improved considerably and the LDH is low Continue Symbicort inhaler as maintenance and albuterol which is reminiscent basis Multivitamins Her condition is stable. Possible discharge home on Decadron, Eliquis and home O2. this will be discussed with the medical team. Arrange home O2. Further weaning of FiO2 and oxygen will be done outpatient basis. Possible discharge if the rest of the medical team is agreeable for her to be released.
[2021-07-30 15:11] VITALS: BP 132/72; PULSE 70; RESP 22; TEMP 97.6
== END 2021-07-30 16:56 | disposition home health service (06) | DRG 177 ==
LOC: EC 18:14 → SUPCPDRO 18:14 → 4SSUR 19:46 → OBSVTOIN 07-26 14:47
PROVIDERS: ADMIT Hospitalist; ATTEND Hospitalist
DX: U07.1 COVID-19 (principal); J12.82 Pneumonia due to coronavirus disease 2019; J96.01 Acute respiratory failure with hypoxia; J44.0 Chronic obstructive pulmonary disease with (acute) lower respiratory infection; Z20.822 Contact with and (suspected) exposure to COVID-19; D72.810 Lymphocytopenia; E78.5 Hyperlipidemia, unspecified; F41.9 Anxiety disorder, unspecified; I10 Essential (primary) hypertension; K21.9 Gastro-esophageal reflux disease without esophagitis; K90.0 Celiac disease; R33.9 Retention of urine, unspecified; R53.81 Other malaise; R74.01 Elevation of levels of liver transaminase levels; M85.80 Other specified disorders of bone density and structure, unspecified site; Z79.01 Long term (current) use of anticoagulants; Z79.51 Long term (current) use of inhaled steroids; Z79.82 Long term (current) use of aspirin; Z79.899 Other long term (current) drug therapy; Z80.1 Family history of malignant neoplasm of trachea, bronchus and lung; Z86.711 Personal history of pulmonary embolism; Z90.710 Acquired absence of both cervix and uterus
CPT/HCPCS: 36415; 71045; 80048; 80053; 81003; 82728; 83605; 83615; 83735; 83880; 84145; 84484; 85025; 85379; 85610; 85730; 86140; 87040; 87635; 93005; 94640; 94760; 99285

== ENCOUNTER 2021-08-15 23:29 | Inpatient (IN) | payer MEDICARE ==
--- NOTE | 2021-08-15 23:58 | ED ---
SOB HPI - General Chief Complaint: Shortness of Breath Stated Complaint: TAL Time Seen by Provider: 08/15/21 23:43 Source: patient, EMS Mode of arrival: EMS Limitations: altered mental status (Patient appears delirious) - History of Present Illness Initial Comments: This patient is an 85-year-old woman brought by ambulance to be evaluated for shortness of breath and cough. The patient does reportedly have history of asthma. She had been diagnosed with COVID-19 infection at the end of June. The patient returned to the hospital from July 30 through the for a course of Covid pneumonia treatment. At that time it appears she had a course of remdesivir and dexamethasone, then was discharged with supplemental oxygen. Over the past 2-3 days, patient's family noted that she was seeming more short of breath. She does continue to cough the largely nonproductive. Today and into tonight she was becoming more confused so EMS was called. When I interview the patient, she is denying pain and fevers. History is otherwise limited. MD Complaint: shortness of breath, cough -: hour(s) Severity scale (1-10): 0 Known History Of: asthma, DVT, other (Recent covid pneumonia) Associated Symptoms: cough Treatments Prior to Arrival: oxygen - Related Data Home Oxygen Therapy: Yes Home Oxygen Amount: 2 Liters Home Medications Medication Instructions Recorded Confirmed Montelukast [Singulair] 10 mg PO HS 10/22/16 08/16/21 Apixaban [Eliquis] 5 mg PO BID 11/02/18 08/16/21 Vit C/E/Zn/Coppr/Lutein/Zeaxan 1 cap PO BID 11/02/18 08/16/21 [Preservision Areds 2 Softgel] Aspirin EC [Ecotrin Low Dose] 81 mg PO DAILY 03/23/20 08/16/21 Omeprazole 20 mg PO DAILY 03/23/20 08/16/21 Fluticasone Propion/Salmeterol 1 puff INHALATION RT-BID 07/24/21 08/16/21 [Wixela 250-50 Inhub] Glucosam/George-Msm1/C/Tyler/Bosw 1 tab PO DAILY 07/24/21 08/16/21 [Glucosamine-Chondroitin Tablet] Metoprolol Succinate (ER) [Toprol 100 mg PO DAILY 07/24/21 08/16/21 XL] NIFEdipine [NIFEdipine ER] 30 mg PO DAILY 07/24/21 08/16/21 Tolterodine Tartrate [Detrol LA] 2 mg PO DAILY 07/24/21 08/16/21 Celecoxib [CeleBREX] 200 mg PO DAILY 08/16/21 08/16/21 Previous Rx's Medication Instructions Recorded Atorvastatin Calcium [Lipitor] 20 mg PO HS #30 tab 06/01/18 Albuterol Inhaler [Ventolin Hfa 1 puff INHALATION RT-QID #1 gm 07/30/21 Inhaler] Ascorbic Acid [Vitamin C] 500 mg PO BID tab 07/30/21 Cholecalciferol [Vitamin D3 (25 50 mcg PO BID tablet 07/30/21 Mcg = 1000 Iu)] Zinc Sulfate [Orazinc] 220 mg PO DAILY cap 07/30/21 Allergies Allergy/AdvReac Type Severity Reaction Status Date / Time orange juice [[place]] Allergy Rash/Hives Verified 08/15/21 23:41 ciprofloxacin AdvReac Diarrhea Verified 08/15/21 23:41 gluten AdvReac Nausea & Verified 08/15/21 23:41 Vomiting & Diarrhea Review of Systems ROS Statement: Those systems with pertinent positive or pertinent negative responses have been documented in the HPI. ROS Other: All systems not noted in ROS Statement are negative. Limitations: ROS unobtainable due to patients medical condition Constitutional: Denies: fever Respiratory: Reports: cough, dyspnea, wheezes. Denies: hemoptysis Cardiovascular: Denies: chest pain, syncope Gastrointestinal: Denies: abdominal pain, vomiting Genitourinary: Denies: dysuria Musculoskeletal: Denies: back pain Neurological: Denies: headache Past Medical History Past Medical History: Asthma, COPD, Hypertension, Pulmonary Embolus (PE) Additional Past Medical History / Comment(s): Previous history of pulmonary embolism approximately 8 years ago, celiac disease, bronchial asthma, hype rtension, acid reflux, History of Any Multi-Drug Resistant Organisms: None Reported Past Surgical History: Appendectomy, Hysterectomy Past Anesthesia/Blood Transfusion Reactions: No Reported Reaction Past Psychological History: Anxiety Smoking Status: Never smoker Past Alcohol Use History: None Reported Past Drug Use History: None Reported - Past Family History Mother History Unknown: Yes Father Family Medical History: Cancer General Exam Limitations: no limitations General appearance: alert, in distress (Patient is tachypneic) Head exam: Present: atraumatic, normocephalic Eye exam: Present: normal appearance. Absent: scleral icterus, conjunctival injection Neck exam: Present: normal inspection, full ROM Respiratory exam: Present: respiratory distress (Tachypnea), rales. Absent: wheezes, rhonchi, stridor, accessory muscle use, decreased breath sounds Cardiovascular Exam: Present: normal rhythm, tachycardia, normal heart sounds. Absent: systolic murmur, diastolic murmur, rubs, gallop GI/Abdominal exam: Present: soft. Absent: distended, tenderness, guarding, rebound, rigid, mass Extremities exam: Present: normal inspection, normal capillary refill. Absent: pedal edema, calf tenderness Back exam: Present: normal inspection. Absent: CVA tenderness (R), CVA tenderness (L) Neurological exam: Present: alert. Absent: oriented X3 (Patient is oriented to person and realizes she is in the hospital), motor sensory deficit Skin exam: Present: warm, dry, intact, normal color. Absent: rash Course Vital Signs 08/15/21 08/15/21 08/16/21 23:37 23:45 00:30 Temperature 100.3 F H Pulse Rate 116 H Respiratory 30 H 30 H Rate Blood Pressure 120/69 O2 Sat by Pulse 93 L Oximetry 08/16/21 08/16/21 08/16/21 00:40 01:13 01:35 Temperature Pulse Rate 101 H Respiratory 23 38 H 35 H Rate Blood Pressure 120/65 O2 Sat by Pulse 91 L 85 L 99 Oximetry 08/16/21 08/16/21 08/16/21 02:00 03:02 04:00 Temperature 99.8 F H 98.8 F 98.8 F Pulse Rate 84 79 Respiratory 33 H 35 H Rate Blood Pressure 102/53 93/48 O2 Sat by Pulse 96 94 L 95 Oximetry 08/16/21 08/16/21 08/16/21 07:48 08:00 08:30 Temperature 97.7 F Pulse Rate 85 84 79 Respiratory 20 24 24 Rate Blood Pressure 155/73 155/73 94/58 O2 Sat by Pulse 92 L 89 L 90 L Oximetry 08/16/21 08/16/21 08/16/21 09:00 09:30 10:00 Temperature Pulse Rate 82 80 83 Respiratory 24 24 Rate Blood Pressure 102/74 125/71 125/71 O2 Sat by Pulse 91 L 90 L 90 L Oximetry 08/16/21 08/16/21 08/16/21 10:35 11:00 12:00 Temperature Pulse Rate 98 96 109 H Respiratory 24 Rate Blood Pressure 122/65 122/65 127/74 O2 Sat by Pulse 95 92 L 96 Oximetry 08/16/21 08/16/21 08/16/21 12:05 12:44 13:00 Temperature Pulse Rate 106 H 105 H 98 Respiratory 52 H 45 H Rate Blood Pressure 158/79 158/79 158/79 O2 Sat by Pulse 94 L 97 94 L Oximetry 08/16/21 08/16/21 08/16/21 14:00 14:16 15:00 Temperature Pulse Rate 92 91 Respiratory Rate Blood Pressure 114/62 122/67 O2 Sat by Pulse 84 L 91 L 96 Oximetry 08/16/21 08/16/21 08/16/21 15:25 15:58 16:00 Temperature 97.6 F Pulse Rate 91 92 Respiratory 50 H 45 H Rate Blood Pressure 120/68 120/68 O2 Sat by Pulse 95 94 L Oximetry 08/16/21 08/16/21 08/16/21 17:00 17:02 17:37 Temperature Pulse Rate 89 89 86 Respiratory 44 H Rate Blood Pressure 118/69 118/66 118/66 O2 Sat by Pulse 93 L 96 96 Oximetry 08/16/21 08/16/21 08/16/21 18:00 19:00 19:08 Temperature 97.8 F Pulse Rate 86 84 84 Respiratory 43 H Rate Blood Pressure 118/66 112/66 113/63 O2 Sat by Pulse 95 97 96 Oximetry 08/16/21 08/16/21 08/16/21 20:00 21:00 22:00 Temperature Pulse Rate 83 81 79 Respiratory Rate Blood Pressure 113/63 121/62 113/63 O2 Sat by Pulse 97 95 96 Oximetry Medical Decision Making - Medical Decision Making Patient is an 85-year-old woman returns to the hospital with what appears to be worsening of code related pneumonia. Case discussed with admitting physician and consulting pulmonology. Steroids are continued and patient on eliquis coverage against DVT/PE. Patient is given 1 dose of antibiotics while the pro calcitonin pending. - Lab Data Result diagrams: 08/17/21 05:21 08/17/21 05:21 Lab Results 08/15/21 08/15/21 08/15/21 Range/Units 23:59 23:59 23:59 WBC 16.1 H (3.8-10.6) k/uL RBC 4.11 (3.80-5.40) m/uL Hgb 11.6 (11.4-16.0) gm/dL Hct 34.7 (34.0-46.0) % MCV 84.4 (80.0-100.0) fL MCH 28.2 (25.0-35.0) pg MCHC 33.4 (31.0-37.0) g/dL RDW 14.4 (11.5-15.5) % Plt Count 295 (150-450) k/uL MPV 8.0 Neutrophils % 88 % Lymphocytes % 4 % Monocytes % 6 % Eosinophils % 1 % Basophils % 0 % Neutrophils # 14.1 H (1.3-7.7) k/uL Lymphocytes # 0.7 L (1.0-4.8) k/uL Monocytes # 0.9 (0-1.0) k/uL Eosinophils # 0.1 (0-0.7) k/uL Basophils # 0.0 (0-0.2) k/uL PT 14.1 H (9.0-12.0) sec INR 1.4 H (<1.2) APTT 25.3 (22.0-30.0) sec D-Dimer 1.17 H (<0.60) mg/L FEU Sodium 132 L (137-145) mmol/L Potassium 4.4 (3.5-5.1) mmol/L Chloride 102 (98-107) mmol/L Carbon Dioxide 22 (22-30) mmol/L Anion Gap 8 mmol/L BUN 19 H (7-17) mg/dL Creatinine 0.64 (0.52-1.04) mg/dL Est GFR (CKD-EPI)AfAm >90 (>60 ml/min/1.73 sqM) Est GFR (CKD-EPI)NonAf 82 (>60 ml/min/1.73 sqM) Glucose 147 H (74-99) mg/dL Lactic Ac Sepsis Rflx Plasma Lactic Acid Kaiden (0.7-2.0) mmol/L Calcium 8.3 L (8.4-10.2) mg/dL Total Bilirubin 0.7 (0.2-1.3) mg/dL AST 38 H (14-36) U/L ALT 19 (4-34) U/L Alkaline Phosphatase 110 (38-126) U/L Troponin I (0.000-0.034) ng/mL NT-Pro-B Natriuret Pep pg/mL Total Protein 5.7 L (6.3-8.2) g/dL Albumin 2.8 L (3.5-5.0) g/dL 08/15/21 08/15/21 08/15/21 Range/Units 23:59 23:59 23:59 WBC (3.8-10.6) k/uL RBC (3.80-5.40) m/uL Hgb (11.4-16.0) gm/dL Hct (34.0-46.0) % MCV (80.0-100.0) fL MCH (25.0-35.0) pg MCHC (31.0-37.0) g/dL RDW (11.5-15.5) % Plt Count (150-450) k/uL MPV Neutrophils % % Lymphocytes % % Monocytes % % Eosinophils % % Basophils % % Neutrophils # (1.3-7.7) k/uL Lymphocytes # (1.0-4.8) k/uL Monocytes # (0-1.0) k/uL Eosinophils # (0-0.7) k/uL Basophils # (0-0.2) k/uL PT (9.0-12.0) sec INR (<1.2) APTT (22.0-30.0) sec D-Dimer (<0.60) mg/L FEU Sodium (137-145) mmol/L Potassium (3.5-5.1) mmol/L Chloride (98-107) mmol/L Carbon Dioxide (22-30) mmol/L Anion Gap mmol/L BUN (7-17) mg/dL Creatinine (0.52-1.04) mg/dL Est GFR (CKD-EPI)AfAm (>60 ml/min/1.73 sqM) Est GFR (CKD-EPI)NonAf (>60 ml/min/1.73 sqM) Glucose (74-99) mg/dL Lactic Ac Sepsis Rflx Plasma Lactic Acid Kaiden 3.4 H* (0.7-2.0) mmol/L Calcium (8.4-10.2) mg/dL Total Bilirubin (0.2-1.3) mg/dL AST (14-36) U/L ALT (4-34) U/L Alkaline Phosphatase (38-126) U/L Troponin I 0.070 H* (0.000-0.034) ng/mL NT-Pro-B Natriuret Pep 917 pg/mL Total Protein (6.3-8.2) g/dL Albumin (3.5-5.0) g/dL 08/16/21 Range/Units 00:23 WBC (3.8-10.6) k/uL RBC (3.80-5.40) m/uL Hgb (11.4-16.0) gm/dL Hct (34.0-46.0) % MCV (80.0-100.0) fL MCH (25.0-35.0) pg MCHC (31.0-37.0) g/dL RDW (11.5-15.5) % Plt Count (150-450) k/uL MPV Neutrophils % % Lymphocytes % % Monocytes % % Eosinophils % % Basophils % % Neutrophils # (1.3-7.7) k/uL Lymphocytes # (1.0-4.8) k/uL Monocytes # (0-1.0) k/uL Eosinophils # (0-0.7) k/uL Basophils # (0-0.2) k/uL PT (9.0-12.0) sec INR (<1.2) APTT (22.0-30.0) sec D-Dimer (<0.60) mg/L FEU Sodium (137-145) mmol/L Potassium (3.5-5.1) mmol/L Chloride (98-107) mmol/L Carbon Dioxide (22-30) mmol/L Anion Gap mmol/L BUN (7-17) mg/dL Creatinine (0.52-1.04) mg/dL Est GFR (CKD-EPI)AfAm (>60 ml/min/1.73 sqM) Est GFR (CKD-EPI)NonAf (>60 ml/min/1.73 sqM) Glucose (74-99) mg/dL Lactic Ac Sepsis Rflx Y Plasma Lactic Acid Kaiden (0.7-2.0) mmol/L Calcium (8.4-10.2) mg/dL Total Bilirubin (0.2-1.3) mg/dL AST (14-36) U/L ALT (4-34) U/L Alkaline Phosphatase (38-126) U/L Troponin I (0.000-0.034) ng/mL NT-Pro-B Natriuret Pep pg/mL Total Protein (6.3-8.2) g/dL Albumin (3.5-5.0) g/dL - EKG Data -: EKG Interpreted by Me EKG shows normal: sinus rhythm, axis (Normal), intervals (Normal), QRS complexes (Normal) Rate: tachycardia (Rate 114 bpm) Interpretation: nonspecific ST-T wave changes Critical Care Time Critical Care Time: Yes (30 minutes) Disposition Clinical Impression: Pneumonia due to COVID-19 virus, Dyspnea, Lactic acid acidosis, Elevated troponin I level Disposition: ADMITTED IP TO THIS HOSP Condition: Critical
[2021-08-15] MEDS ORDERED: SODIUM CHLORIDE 0.9% 500 ML 500 ML IV STA (23:59)
[2021-08-15] MEDS ORDERED: IBUPROFEN 600 MG TAB PO STA (23:59)
[2021-08-15] MEDS ORDERED: ACETAMINOPHEN TAB 325 MG TAB PO STA (23:59)
[2021-08-16] MEDS ORDERED: SODIUM CHLORIDE 0.9% 1,000 ML IV STA
[2021-08-16 00:19] LABS: Basophils % (A) 0 %; Eosinophils # (A) 0.1 k/uL (0-0.7); Eosinophils % (A) 1 %; HCT 34.7 % (34.0-46.0); HGB 11.6 gm/dL (11.4-16.0); Lymphocytes # (A) 0.7 k/uL (1.0-4.8); Lymphocytes % (A) 4 %; MCH 28.2 pg (25.0-35.0); MCHC 33.4 g/dL (31.0-37.0); MCV 84.4 fL (80.0-100.0); Monocytes # (A) 0.9 k/uL (0-1.0); Monocytes % (A) 6 %; Neutrophils # (A) 14.1 k/uL (1.3-7.7); Neutrophils % (A) 88 %; Platelet Count 295 k/uL (150-450); RBC 4.11 m/uL (3.80-5.40); RDW 14.4 % (11.5-15.5); WBC 16.1 k/uL (3.8-10.6)
[2021-08-16 00:22] LABS: ALT 19 U/L (4-34); AST 38 U/L (14-36); African American GFR (CKD) >90 (>60 ml/min/1.73 sqM); Albumin 2.8 g/dL (3.5-5.0); Alkaline Phosphatase 110 U/L (38-126); Anion Gap 8 mmol/L; Blood Urea Nitrogen 19 mg/dL (7-17); Calcium 8.3 mg/dL (8.4-10.2); Carbon Dioxide 22 mmol/L (22-30); Chloride 102 mmol/L (98-107); Glucose 147 mg/dL (74-99); Non-African American GFR(CKD) 82 (>60 ml/min/1.73 sqM); Sodium 132 mmol/L (137-145); Total Bilirubin 0.7 mg/dL (0.2-1.3); Total Protein 5.7 g/dL (6.3-8.2)
--- NOTE | 2021-08-16 00:22 | XR ---
EXAMINATION TYPE: XR chest 1V portable DATE OF EXAM: 08/16/2021 COMPARISON: 07/28/2021 HISTORY: Fever TECHNIQUE: FINDINGS: There is bilateral diffuse pulmonary interstitial and airspace infiltrate. There are chest leads. Heart appears slightly enlarged. IMPRESSION: Moderate pulmonary edema. This could be RDS and congestive heart failure. Lung abnormalit y significantly increased compared to last exam.
[2021-08-16 00:23] LABS: Potassium 4.4 mmol/L (3.5-5.1)
[2021-08-16 00:29] LABS: INR 1.4 (<1.2); Partial Thromboplastin Time 25.3 sec (22.0-30.0); Prothrombin Time 14.1 sec (9.0-12.0)
[2021-08-16] MEDS ORDERED: LORazepam 2 MG/ML INJ IV STA ×2 (01:47→12:31)
[2021-08-16] MEDS ORDERED: NALOXONE 0.4 MG/ML 1 ML VIAL IV PRN (02:12)
[2021-08-16] MEDS ORDERED: ACETAMINOPHEN TAB 325 MG TAB PO PRN (02:12)
[2021-08-16] MEDS ORDERED: ENOXAPARIN 80 MG/0.8 ML SYRINGE SQ SCH (02:15)
--- NOTE | 2021-08-16 03:36 | CT ---
EXAMINATION TYPE: CT chest angio for PE DATE OF EXAM: 08/16/2021 COMPARISON: 12/24/2018 HISTORY: PE CT DLP: 263.6 mGycm Automated exposure control for dose reduction was used. CONTRAST: Performed with IV Contrast, patient injected with 50 mL of Isovue 370. There are 3-D post processed images. There is extensive interstitial infiltrate throughout both lungs. There is coalescent infiltrate with air bronchograms in both lower lobes. Heart is slightly enlarged. There are bilateral bronchial lymp h nodes up to 1.5 cm. Thoracic aorta is intact. There is no dissection. Ascending aorta measures 3.4 cm. There is no evidence of filling defect in the pulmonary arteries. Thoracic spine is intact. There is no compression fracture. The sternum is intact. Upper abdominal soft tissues appear intact. IMPRESSION: No evidence of pulmonary embolism. Extensive pulmonary infiltrates that could relate to RDS. Pulmonary infiltrates are mostly new compar ed to old exam.
[2021-08-16] MEDS: LORazepam 2 MG/ML INJ IV PRN ×4 (07:47→17:07)
[2021-08-16] MEDS ORDERED: FLUTICASONE PROPION INHALATION SCH (08:00)
[2021-08-16] MEDS ORDERED: SALMETEROL INHALATION SCH (08:00)
[2021-08-16] MEDS ORDERED: SYMBICORT 160-4.5 MCG INHALER INHALATION SCH (08:00)
[2021-08-16 08:02] LABS: Appearance,Urine Clear (Clear); Bilirubin,Urine Negative (Negative); Blood,Urine Negative (Negative); Color,Urine Yellow; Glucose,Urine (UA) Negative (Negative); Ketones,Urine Negative (Negative); Leukocyte Esterase,Urine Trace (Negative); Mucus,Urine Rare /hpf; Nitrite,Urine Negative (Negative); Protein,Urine Trace (Negative); Specific Gravity,Urine 1.032 (1.001-1.035); Squamous Epithelial Cell,Urine 3 /hpf (0-4); Urobilinogen,Urine <2.0 mg/dL (<2.0); WBC,Urine 2 /hpf (0-5)
--- NOTE | 2021-08-16 10:10 | P.CNPUL ---
History of Present Illness Consult date: 08/16/21 Reason for consult: dyspnea History of present illness: This patient is an 85-year-old woman brought by ambulance to be evaluated for shortness of breath and cough. The patient does reportedly have history of asthma. She had been diagnosed with COVID-19 infection at the end of June. The patient returned to the hospital from July 30 through the for a course of Covid pneumonia treatment. At that time it appears she had a course of remdesivir and dexamethasone, then was discharged with supplemental oxygen. Over the past 2-3 days, patient's family noted that she was seeming more short of breath. She does continue to cough the largely nonproductive. Today and into tonight she was becoming more confused so EMS was called. No reported fever chills or night sweats. The patient's chest x-ray showed bilateral pulmonary infiltrates with worsening specially on the right evidence of bilateral diffuse pulmonary interstitial airspace infiltrates. A computed tomography scan of the chest was also done and it showed no evidence of any pulmonary embolism and it showed extensive pulmonary infiltrates is diffuse bilateral groundglass pulmonary infiltrates. 116.1. He will was 11.6. The patient continues to have lymphopenia with a lymphocyte count of 0.7, time is at 1.1 with normal coagulation profile, lactic acid level was 3.4 dropped down to 1.3 with fluids, troponin was 0.07 and 0.09 respectively 2, UA was essentially negative, the rest of the electrolytes was within normal limits, normal renal function with a creatinine of 0.6, proBNP level is 917. Accordingly, the patient was quite hypoxic. She was initially placed on oxygen on a nonrebreather facemask and subsequently she was placed on BiPAP at a pressure of 12/6 with an FiO2 of 80%. Her current pulse ox is 90%. She is quite tachypneic, respiratory rate is in the mid 40s and she is generating a tidal volume of around 380 mL. That the patient was discharged home on home O2 along with a course of Decadron and Eliquis to be continued on outpatient basis. 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 She also has chronic bronchial asthma, hypertension and chronic anxiety as comorbid conditions. Review of Systems Constitutional: Reports fatigue, Reports weakness Eyes: denies as per HPI, denies blurred vision, denies bulging eye, denies decreased vision, denies diplopia, denies discharge, denies dry eye, denies irritation, denies itching, denies pain, denies photophobia, denies loss of peripheral vision, denies loss of vision, denies tunnel vision/blind spots Ears: deny: decreased hearing, ear discharge, earache, tinnitus Ears, nose, mouth and throat: Reports as per HPI, Denies headache, Denies sore throat Breasts: absent: as per HPI, change in shape, gynecomastia, masses, nipple discharge, pain, skin changes, swelling Cardiovascular: Reports decreased exercise tolerance, Reports dyspnea on exertion Respiratory: Reports dyspnea Gastrointestinal: Reports as per HPI Genitourinary: Reports as per HPI Menstruation: Reports as per HPI Musculoskeletal: Reports as per HPI Musculoskeletal: absent: ankle pain, ankle stiffness, ankle swelling, as per HPI, elbow pain, elbow stiffness, elbow swelling, foot pain, foot stiffness, foot swelling, hand pain, hand stiffness, hand swelling, hip pain, hip stiffness, hip swelling, knee pain, knee stiffness, knee swelling, shoulder pain, shoulder stiffness, shoulder swelling, wrist pain, wrist stiffness, wrist swelling Integumentary: Reports as per HPI Neurological: Reports as per HPI, Reports weakness Psychiatric: Reports as per HPI Endocrine: Reports as per HPI Hematologic/Lymphatic: Reports as per HPI Allergic/Immunologic: Reports as per HPI Past Medical History Past Medical History: Asthma, COPD, Hypertension, Pulmonary Embolus (PE) Additional Past Medical History / Comment(s): Previous history of pulmonary embolism approximately 8 years ago, celiac disease, bronchial asthma, hypertension, acid reflux, COVID 19 pneumonia History of Any Multi-Drug Resistant Organisms: None Reported Past Surgical History: Appendectomy, Hysterectomy Past Anesthesia/Blood Transfusion Reactions: No Reported Reaction Past Psychological History: Anxiety Smoking Status: Never smoker Past Alcohol Use History: None Reported Past Drug Use History: None Reported - Past Family History Mother History Unknown: Yes Father Family Medical History: Cancer Medications and Allergies Home Medications Medication Instructions Recorded Confirmed Type Montelukast [Singulair] 10 mg PO HS 10/22/16 08/16/21 History Atorvastatin Calcium [Lipitor] 20 mg PO HS #30 tab 06/01/18 08/16/21 Rx Apixaban [Eliquis] 5 mg PO BID 11/02/18 08/16/21 History Vit C/E/Zn/Coppr/Lutein/Zeaxan 1 cap PO BID 11/02/18 08/16/21 History [Preservision Areds 2 Softgel] Aspirin EC [Ecotrin Low Dose] 81 mg PO DAILY 03/23/20 08/16/21 History Omeprazole 20 mg PO DAILY 03/23/20 08/16/21 History Fluticasone Propion/Salmeterol 1 puff INHALATION RT-BID 07/24/21 08/16/21 History [Wixela 250-50 Inhub] Glucosam/George-Msm1/C/Tyler/Bosw 1 tab PO DAILY 07/24/21 08/16/21 History [Glucosamine-Chondroitin Tablet] Metoprolol Succinate (ER) [Toprol 100 mg PO DAILY 07/24/21 08/16/21 History XL] NIFEdipine [NIFEdipine ER] 30 mg PO DAILY 07/24/21 08/16/21 History Tolterodine Tartrate [Detrol LA] 2 mg PO DAILY 07/24/21 08/16/21 History Albuterol Inhaler [Ventolin Hfa 1 puff INHALATION RT-QID #1 gm 07/30/21 08/16/21 Rx Inhaler] Ascorbic Acid [Vitamin C] 500 mg PO BID tab 07/30/21 08/16/21 Rx Cholecalciferol [Vitamin D3 (25 50 mcg PO BID tablet 07/30/21 08/16/21 Rx Mcg = 1000 Iu)] Zinc Sulfate [Orazinc] 220 mg PO DAILY cap 07/30/21 08/16/21 Rx Celecoxib [CeleBREX] 200 mg PO DAILY 08/16/21 08/16/21 History Allergies Allergy/AdvReac Type Severity Reaction Status Date / Time orange juice [[place]] Allergy Rash/Hives Verified 08/15/21 23:41 ciprofloxacin AdvReac Diarrhea Verified 08/15/21 23:41 gluten AdvReac Nausea & Verified 08/15/21 23:41 Vomiting & Diarrhea Physical Exam Vitals: Vital Signs Temp Pulse Resp BP Pulse Ox 08/16/21 09:30 80 24 125/71 90 L 08/16/21 09:00 82 24 102/74 91 L 08/16/21 08:30 79 24 94/58 90 L 08/16/21 08:00 84 24 155/73 89 L 11/08/21 07:48 97.7 F 85 20 155/73 92 L 08/16/21 04:00 98.8 F 79 35 H 93/48 95 08/16/21 02:00 99.8 F H 84 33 H 102/53 96 08/16/21 01:35 35 H 99 08/16/21 01:13 38 H 85 L 08/16/21 00:40 101 H 23 120/65 91 L 08/16/21 00:30 30 H 08/15/21 23:45 100.3 F H 08/15/21 23:37 116 H 30 H 120/69 93 L Intake and Output 08/15/21 08/16/21 08/16/21 22:59 06:59 14:59 Other: Weight 68.039 kg GENERAL EXAM: Lethargic, labored breathing, currently on a BiPAP at a pressure of 12/6 cm of water with an FiO2 of 80%, quite thickened neck and breathing fast HEAD: Normocephalic/atraumatic. EYES: Normal reaction of pupils, equal size. Conjunctiva pink, sclera white. NOSE: Clear with pink turbinates. THROAT: No erythema or exudates. NECK: No masses, no JVD, no thyroid enlargement, no adenopathy. CHEST: No chest wall deformity. Symmetrical expansion. LUNGS: Equal air entry with crackles, wheeze, rhonchi or dullness. Patient is quite tachypneic and her breathing is labored and she is breathing fast he gets symptoms with the mechanical ventilator. CVS: Regular rate and rhythm, normal S1 and S2, no gallops, no murmurs, no rubs ABDOMEN: Soft, nontender. No hepatosplenomegaly, normal bowel sounds, no guarding or rigidity. EXTREMITIES: No clubbing, no edema, no cyanosis, 2+ pulses and upper and lower extremities. MUSCULOSKELETAL: Muscle strength and tone normal. SPINE: No scoliosis or deformity SKIN: No rashes CENTRAL NERVOUS SYSTEM: Lethargic yet arousable. No focal deficits, tone is normal in all 4 extremities. Results - Laboratory Findings CBC and BMP: 08/15/21 23:59 08/15/21 23:59 PT/INR, D-dimer PT 14.1 sec (9.0-12.0) H 08/15/21 23:59 INR 1.4 (<1.2) H 08/15/21 23:59 D-Dimer 1.17 mg/L FEU (<0.60) H 08/15/21 23:59 Abnormal lab findings: Abnormal Labs 08/15/21 08/15/21 08/15/21 23:59 23:59 23:59 WBC 16.1 H Neutrophils # 14.1 H Lymphocytes # 0.7 L PT 14.1 H INR 1.4 H D-Dimer 1.17 H Sodium 132 L BUN 19 H Glucose 147 H Plasma Lactic Acid Kaiden Calcium 8.3 L AST 38 H Troponin I Total Protein 5.7 L Albumin 2.8 L Urine Protein Ur Leukocyte Esterase Urine Mucus 08/15/21 08/15/21 08/16/21 23:59 23:59 06:13 WBC Neutrophils # Lymphocytes # PT INR D-Dimer Sodium BUN Glucose Plasma Lactic Acid Kaiden 3.4 H* Calcium AST Troponin I 0.070 H* 0.091 H* Total Protein Albumin Urine Protein Ur Leukocyte Esterase Urine Mucus 08/16/21 07:30 WBC Neutrophils # Lymphocytes # PT INR D-Dimer Sodium BUN Glucose Plasma Lactic Acid Kaiden Calcium AST Troponin I Total Protein Albumin Urine Protein Trace H Ur Leukocyte Esterase Trace H Urine Mucus Rare H - Diagnostic Findings Chest x-ray: image reviewed CT scan - chest: image reviewed Assessment and Plan Plan: 1 acute on chronic hypoxic respiratory failure. The patient comes into the hospital after being discharged from the hospital for COVID-19 related pneumonia. Currently she has diffuse bilateral groundglass pulmonary infiltrates consistent with community related pneumonia. Other vital pneumonias cannot be completely excluded. Nonspecific cause of ARDS cannot be completely excluded. CHF/interstitial edema is felt to be less likely. Noted the patient was discharged home on 07/30/2021 on 4 L of oxygen by nasal cannula. Her condition further decompensated and for that reason the patient came in with worsening hypoxemia and the patient is currently on 100% nonrebreather facemask which got transitioned to BiPAP pressure of 12/6 cm of water and FiO2 of 80%. 2 history of COVID 19 related pneumonia back in July 2021 treated back in June 2021 discharged from the hospital on 07/30/2021 3 history of recurrent pulmonary embolism and 10 on Eliquis on outpatient basis, CT angios gram showed no evidence of any pulmonary embolism 4 shortness of breath secondary to above chronic bronchial asthma 6 hypertension 7 celiac disease 8 hypertension 9 chronic anxiety Plan Recheck Covid 19 by PCR, check influenza A and B and check RSV Check a Legionella urine antigen Restart steroids in the form of Solu-Medrol 60 mg every 6 hours Covered the patient medically with antibiotics pending. Troponin level. Give the patient a combination of cefepime and Zithromax Obtain a echocardiogram Check inflammatory markers including LDH, CRP and d-dimer Continue anti-coagulation with Eliquis Continue BiPAP the same setting. Obtain a blood gas in the ICU. High likelihood that the patient may further decompensated and may end up being intubated and mechanically ventilated. CODE STATUS will be established. For now her CODE STATUS is full
[2021-08-16] MEDS ORDERED: CEFEPIME 1 GM in SODIUM CHLORIDE 0.9% 50 ML IVPB ONE (10:30)
[2021-08-16] MEDS: PANTOPRAZOLE 40 MG TABLET PO SCH (10:46)
[2021-08-16] MEDS: FAMOTIDINE 20 MG TAB PO SCH ×2 (10:46→22:19)
[2021-08-16] MEDS: APIXABAN 5 MG TAB PO SCH ×2 (10:46→22:18)
[2021-08-16] MEDS: OXYBUTYNIN XL 5 MG TAB.ER.24 PO SCH (10:46)
[2021-08-16] MEDS: ASPIRIN 81 MG PO SCH (10:46)
[2021-08-16] MEDS: METOPROLOL SUCCINATE (ER) 100 MG TAB.ER.24H PO SCH (10:47)
[2021-08-16] MEDS: methylPREDNISolone SOD SUCCI 125 MG/2 ML VIAL IV SCH ×2 (10:54→15:28)
[2021-08-16] MEDS: CHOLECALCIFEROL 25 MCG (1000 IU) TABLET PO SCH ×2 (10:55→22:18)
[2021-08-16] MEDS: AZITHROMYCIN 500 MG TAB PO SCH (10:56)
[2021-08-16] MEDS: NIFEdipine XL 30 MG TAB.ER.24 PO SCH (10:57)
[2021-08-16 12:32] LABS: C Reactive Protein 15.2 mg/dL (<1.0)
[2021-08-16 13:08] LABS: ABG HCO3 24 mmol/L (21-25); ABG Oxygen Saturation 97.8 % (94-97); ABG PCO2 39 mmHg (35-45); ABG PO2 95 mmHg (83-108); ABG TCO2 25 mmol/L (19-24); Allen Test Performed? Yes
[2021-08-16] MEDS: SYMBICORT 80-4.5 MCG INHALER INHALATION SCH ×2 (15:18→21:17)
[2021-08-16] MEDS: ALBUTEROL HFA INHALER INHALATION SCH ×2 (15:18→21:17)
--- NOTE | 2021-08-16 18:17 | P.HPIM ---
History of Present Illness H&P Date: 08/16/21 Chief Complaint: shortness of breath patient is a 85-year-old female with a known history of asthma/COPD, hypertension, history of PE currently on anticoagulation with Eliquis, hypertension, anxiety and history of COVID-19 pneumonia presents to ER with complaints of worsening shortness of breath and cough. Patient was diagnosed with COVID-19 infection at the end of June 2021. Patient was in the hospital from July 30 to due to Covid pneumonia treatment. Patient received remdesivir and dexamethasone and was discharged home on supplemental oxygen. For the past 2 2 days family noted she seems to be more short of breath and continued to cough without any sputum production. Patient has become more confused and EMS was called. In the ER patient was placed on BiPAP and has been very anxious and agitated and pulling the tubes. Chest x-ray showed moderate pulmonary edema. This could be RDS and CHF. Lung abnormality significantly increased compared to last exam. EKG showed sinus tachycardia CT angio of the chest was done which showed no evidence of PE. Extensive pulmonary infiltrates that could relate to RDS. Pulmonary infiltrates are mostly new compared to old exam. Patient was tachycardic, tachypneic and hypoxic with T-max of 100.3 on admis sheridan. Laboratory data showed WBC 16.1 hemoglobin 7.6 and platelets 295 lymphocyte 0.7 and D-dimer is 1.17 INR 1.4 Sodium 132 potassium 4.4 BUN 19 and creatinine 0.64 lactic acid 3.4 Troponin 0 0.070, proBNP 917 and albumin 2.8 UA negative for infection Review of Systems Review of systems could not be obtained from the patient. Past Medical History Past Medical History: Asthma, COPD, Hypertension, Pulmonary Embolus (PE) Additional Past Medical History / Comment(s): Previous history of pulmonary embolism approximately 8 years ago, celiac disease, bronchial asthma, hypertension, acid reflux, COVID 19 pneumonia History of Any Multi-Drug Resistant Organisms: None Reported Past Surgical History: Appendectomy, Hysterectomy Past Anesthesia/Blood Transfusion Reactions: No Reported Reaction Past Psychological History: Anxiety Smoking Status: Never smoker Past Alcohol Use History: None Reported Past Drug Use History: None Reported - Past Family History Mother History Unknown: Yes Father Family Medical History: Cancer Medications and Allergies Home Medications Medication Instructions Recorded Confirmed Type Montelukast [Singulair] 10 mg PO HS 10/22/16 08/16/21 History Atorvastatin Calcium [Lipitor] 20 mg PO HS #30 tab 06/01/18 08/16/21 Rx Apixaban [Eliquis] 5 mg PO BID 11/02/18 08/16/21 History Vit C/E/Zn/Coppr/Lutein/Zeaxan 1 cap PO BID 11/02/18 08/16/21 History [Preservision Areds 2 Softgel] Aspirin EC [Ecotrin Low Dose] 81 mg PO DAILY 03/23/20 08/16/21 History Omeprazole 20 mg PO DAILY 03/23/20 08/16/21 History Fluticasone Propion/Salmeterol 1 puff INHALATION RT-BID 07/24/21 08/16/21 History [Wixela 250-50 Inhub] Glucosam/George-Msm1/C/Tyler/Bosw 1 tab PO DAILY 07/24/21 08/16/21 History [Glucosamine-Chondroitin Tablet] Metoprolol Succinate (ER) [Toprol 100 mg PO DAILY 07/24/21 08/16/21 History XL] NIFEdipine [NIFEdipine ER] 30 mg PO DAILY 07/24/21 08/16/21 History Tolterodine Tartrate [Detrol LA] 2 mg PO DAILY 07/24/21 08/16/21 History Albuterol Inhaler [Ventolin Hfa 1 puff INHALATION RT-QID #1 gm 07/30/21 08/16/21 Rx Inhaler] Ascorbic Acid [Vitamin C] 500 mg PO BID tab 07/30/21 08/16/21 Rx Cholecalciferol [Vitamin D3 (25 50 mcg PO BID tablet 07/30/21 08/16/21 Rx Mcg = 1000 Iu)] Zinc Sulfate [Orazinc] 220 mg PO DAILY cap 07/30/21 08/16/21 Rx Celecoxib [CeleBREX] 200 mg PO DAILY 08/16/21 08/16/21 History Allergies Allergy/AdvReac Type Severity Reaction Status Date / Time orange juice [Louisa] Allergy Rash/Hives Verified 08/15/21 23:41 ciprofloxacin AdvReac Diarrhea Verified 08/15/21 23:41 gluten AdvReac Nausea & Verified 08/15/21 23:41 Vomiting & Diarrhea Physical Exam Vitals: Vital Signs Temp Pulse Resp BP Pulse Ox 08/16/21 14:16 91 L 08/16/21 12:44 105 H 45 H 158/79 97 08/16/21 12:05 106 H 52 H 158/79 94 L 08/16/21 10:35 98 24 122/65 95 08/16/21 09:30 80 24 125/71 90 L 08/16/21 09:00 82 24 102/74 91 L 08/16/21 08:30 79 24 94/58 90 L 08/16/21 08:00 84 24 155/73 89 L 08/16/21 07:48 97.7 F 85 20 155/73 92 L 08/16/21 04:00 98.8 F 79 35 H 93/48 95 08/16/21 02:00 99.8 F H 84 33 H 102/53 96 08/16/21 01:35 35 H 99 08/16/21 01:13 38 H 85 L 08/16/21 00:40 101 H 23 120/65 91 L 08/16/21 00:30 30 H 08/15/21 23:45 100.3 F H 08/15/21 23:37 116 H 30 H 120/69 93 L Intake and Output 08/15/21 08/16/21 08/16/21 22:59 06:59 14:59 Other: Weight 68.039 kg PHYSICAL EXAMINATION: Patient is lying in the bed , restless and pulling chills... BiPAPcurrently on BiPAP HEENT: Normocephalic. Neck is supple. Pupils reactive. Nostrils clear. Oral cavity is moist. Neck reveals no JVD, carotid bruits, or thyromegaly. CHEST EXAMINATION: Trachea is central. Symmetrical expansion.bilateral diffuse rhonchi andcoarse breath sounds using accessory muscles. CARDIAC: Normal S1, S2 with no gallops. No murmurs ABDOMEN: Soft. Bowel sounds normal. No organomegaly. No abdominal bruits. Extremities: reveal no edema. No clubbing or cyanosis Neurologically awake, alert but confused. Nocross focal deficits noted Skin: No rash or skin lesions. Psychiatric: could not be assessed at this time. Musculoskeletal: No joint swelling or deformity. Results CBC & Chem 7: 08/15/21 23:59 08/15/21 23:59 Labs: Abnormal Lab Results - Last 24 Hours (Table) 1108/15/21 08/15/21 Range/Units 23:59 23:59 23:59 WBC 16.1 H (3.8-10.6) k/uL Neutrophils # 14.1 H (1.3-7.7) k/uL Lymphocytes # 0.7 L (1.0-4.8) k/uL PT 14.1 H (9.0-12.0) sec INR 1.4 H (<1.2) D-Dimer 1.17 H (<0.60) mg/L FEU ABG Total CO2 (19-24) mmol/L ABG O2 Saturation (94-97) % Sodium 132 L (137-145) mmol/L BUN 19 H (7-17) mg/dL Glucose 147 H (74-99) mg/dL Plasma Lactic Acid Kaiden (0.7-2.0) mmol/L Calcium 8.3 L (8.4-10.2) mg/dL AST 38 H (14-36) U/L Lactate Dehydrogenase (313-618) U/L Troponin I (0.000-0.034) ng/mL C-Reactive Protein (<1.0) mg/dL Total Protein 5.7 L (6.3-8.2) g/dL Albumin 2.8 L (3.5-5.0) g/dL Procalcitonin (0.02-0.09) ng/mL Urine Protein (Negative) Ur Leukocyte Esterase (Negative) Urine Mucus (None) /hpf Coronavirus (PCR) (Not Detectd) 08/15/21 08/15/21 08/16/21 Range/Units 23:59 23:59 06:13 WBC (3.8-10.6) k/uL Neutrophils # (1.3-7.7) k/uL Lymphocytes # (1.0-4.8) k/uL PT (9.0-12.0) sec INR (<1.2) D-Dimer (<0.60) mg/L FEU ABG Total CO2 (19-24) mmol/L ABG O2 Saturation (94-97) % Sodium (137-145) mmol/L BUN (7-17) mg/dL Glucose (74-99) mg/dL Plasma Lactic Acid Kaiden 3.4 H* (0.7-2.0) mmol/L Calcium (8.4-10.2) mg/dL AST (14-36) U/L Lactate Dehydrogenase (313-618) U/L Troponin I 0.070 H* 0.091 H* (0.000-0.034) ng/mL C-Reactive Protein (<1.0) mg/dL Total Protein (6.3-8.2) g/dL Albumin (3.5-5.0) g/dL Procalcitonin (0.02-0.09) ng/mL Urine Protein (Negative) Ur Leukocyte Esterase (Negative) Urine Mucus (None) /hpf Coronavirus (PCR) (Not Detectd) 08/16/21 08/16/21 08/16/21 Range/Units 07:30 11:00 11:00 WBC (3.8-10.6) k/uL Neutrophils # (1.3-7.7) k/uL Lymphocytes # (1.0-4.8) k/uL PT (9.0-12.0) sec INR (<1.2) D-Dimer 1.12 H (<0.60) mg/L FEU ABG Total CO2 (19-24) mmol/L ABG O2 Saturation (94-97) % Sodium (137-145) mmol/L BUN (7-17) mg/dL Glucose (74-99) mg/dL Plasma Lactic Acid Kaiden (0.7-2.0) mmol/L Calcium (8.4-10.2) mg/dL AST (14-36) U/L Lactate Dehydrogenase 2128 H (313-618) U/L Troponin I (0.000-0.034) ng/mL C-Reactive Protein 15.2 H (<1.0) mg/dL Total Protein (6.3-8.2) g/dL Albumin (3.5-5.0) g/dL Procalcitonin (0.02-0.09) ng/mL Urine Protein Trace H (Negative) Ur Leukocyte Esterase Trace H (Negative) Urine Mucus Rare H (None) /hpf Coronavirus (PCR) (Not Detectd) 08/16/21 08/16/21 08/16/21 Range/Units 11:00 12:58 23:59 WBC (3.8-10.6) k/uL Neutrophils # (1.3-7.7) k/uL Lymphocytes # (1.0-4.8) k/uL PT (9.0-12.0) sec INR (<1.2) D-Dimer (<0.60) mg/L FEU ABG Total CO2 25 H (19-24) mmol/L ABG O2 Saturation 97.8 H (94-97) % Sodium (137-145) mmol/L BUN (7-17) mg/dL Glucose (74-99) mg/dL Plasma Lactic Acid Kaiden (0.7-2.0) mmol/L Calcium (8.4-10.2) mg/dL AST (14-36) U/L Lactate Dehydrogenase (313-618) U/L Troponin I (0.000-0.034) ng/mL C-Reactive Protein (<1.0) mg/dL Total Protein (6.3-8.2) g/dL Albumin (3.5-5.0) g/dL Procalcitonin 0.26 H (0.02-0.09) ng/mL Urine Protein (Negative) Ur Leukocyte Esterase (Negative) Urine Mucus (None) /hpf Coronavirus (PCR) Detected A (Not Detectd) Thrombosis Risk Factor Assmnt - DVT/VTE Prophylaxis DVT/VTE Prophylaxis: Pharmacologic Prophylaxis ordered Assessment and Plan Assessment: Acute on chronic hypoxic respiratory failure due to worsening pneumonia and ARDS.Bacterial pneumonia cannot be excluded. Recent admission due to Covid pneumonia and was discharged on 07/30/2021 with 4 L oxygen via nasal cannula. Shortness of breath secondary to bronchial asthma Hypertension History of PE currently on anticoagulation with Eliquis. Celiac disease. Bronchial asthma GERD Anxiety DVT prophylaxis patient is already on Eliquis. Plan: Patient is on BiPAP currently. Patient will be continued on Solu-Medrol 60 mg every 6 hourly and antibiotics in the form of cefepime and azithromycin. Continue with duo nebs and Symbicort. Continue with anticoagulation and GI prophylaxis. Influenza a and B and RSV negative. COVID-19 PCR detected.pro-calcitonin level will be ordered. Pulmonary is on board. Patient is being transferred to MICU. Follow-up inflammatory markers. Time with Patient: Greater than 30
[2021-08-16] MEDS ORDERED: ATORVASTATIN 20 MG TAB PO SCH (21:00)
[2021-08-16] MEDS: CEFEPIME 1 GM in SODIUM CHLORIDE 0.9% 50 ML IVPB SCH (22:09)
[2021-08-16 23:08] LABS: Glucose,Whole Blood 126 mg/dL (75-99)
[2021-08-17] MEDS: methylPREDNISolone SOD SUCCI 125 MG/2 ML VIAL IV SCH ×3 (01:21→11:27)
[2021-08-17] MEDS: MONTELUKAST 10 MG TAB PO SCH ×2 (01:21→23:30)
[2021-08-17] MEDS: PANTOPRAZOLE 40 MG TABLET PO SCH (06:33)
[2021-08-17 07:56] LABS: Basophils % (A) 0 %; Eosinophils % (A) 0 %; HCT 39.8 % (34.0-46.0); HGB 12.3 gm/dL (11.4-16.0); Hypochromasia Slight; Lymphocytes # (A) 0.9 k/uL (1.0-4.8); Lymphocytes % (A) 7 %; MCH 27.4 pg (25.0-35.0); MCHC 30.8 g/dL (31.0-37.0); MCV 88.9 fL (80.0-100.0); Mean Platelet Volume 8.6; Monocytes # (A) 0.4 k/uL (0-1.0); Monocytes % (A) 3 %; Neutrophils # (A) 11.7 k/uL (1.3-7.7); Neutrophils % (A) 89 %; Platelet Count 304 k/uL (150-450); RBC 4.48 m/uL (3.80-5.40); WBC 13.2 k/uL (3.8-10.6)
[2021-08-17] MEDS ORDERED: SODIUM CHLORIDE 0.9% 1,000 ML IV SCH (08:00)
--- NOTE | 2021-08-17 08:07 | P.PN ---
Subjective Progress Note Date: 08/17/21 This patient is an 85-year-old woman brought by ambulance to be evaluated for shortness of breath and cough. The patient does reportedly have history of asthma. She had been diagnosed with COVID-19 infection at the end of June. The patient returned to the hospital from July 30 through the for a course of Covid pneumonia treatment. At that time it appears she had a course of remdesivir and dexamethasone, then was discharged with supplemental oxygen. Over the past 2-3 days, patient's family noted that she was seeming more short of breath. She does continue to cough the largely nonproductive. Today and into tonight she was becoming more confused so EMS was called. No reported fe tiffanie chills or night sweats. The patient's chest x-ray showed bilateral pulmonary infiltrates with worsening specially on the right evidence of bilateral diffuse pulmonary interstitial airspace infiltrates. A computed tomography scan of the chest was also done and it showed no evidence of any pulmonary embolism and it showed extensive pulmonary infiltrates is diffuse bilateral groundglass pulmonary infiltrates. 116.1. He will was 11.6. The patient continues to have lymphopenia with a lymphocyte count of 0.7, time is at 1.1 with normal coagulation profile, lactic acid level was 3.4 dropped down to 1.3 with fluids, troponin was 0.07 and 0.09 respectively 2, UA was essentially negative, the rest of the electrolytes was within normal limits, normal renal function with a creatinine of 0.6, proBNP level is 917. Accordingly, the patient was quite hypoxic. She was initially placed on oxygen on a nonrebreather facemask and subsequently she was placed on BiPAP at a pressure of 12/6 with an FiO2 of 80%. Her current pulse ox is 90%. She is quite tachypneic, respiratory rate is in the mid 40s and she is generating a tidal volume of around 380 mL. That the patient was discharged home on home O2 along with a course of Decadron and Eliquis to be continued on outpatient basis. 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 She also has chronic bronchial asthma, hypertension and chronic anxiety as comorbid conditions. On today's evaluation of 08/17/2021, the patient isn't a intensive care unit. She continues to be tachypneic with a respiratory rate in the high 30s low 40s. She remains on a BiPAP and she was on BiPAP throughout the night at a pressure of 12/6 cm of water with an FiO2 of 100%. She is still breathing quite fast and her generated tidal volume is in order of 500. Blood gases from yesterday showed a pH of 7.4 with a pCO2 of 39 and pO2 of 95. The patient is checking positive again for Covid 19. Influenza A and B came back negative. Due to concern of superinfection and a pro-calcitonin level of 0.26, the patient was also covered with antibiotics and the patient is currently on a donation of Zithromax and cefepime. She is also on IV Solu-Medrol at a dose of 60 mg every 6 hours. The LDH level is elevated at 2398 compared to yesterday and is higher, troponins are positive, CRP level is at 15.2, and the patient is awake and alert. She continues to be in distress. Her breathing is labored. Chest x-ray from today is pending for now. She was given a chest x-ray subsequently and the findings are essentially stable without any interval worsening. Labs from today are still pending. Urine output has dropped since yesterday and the patient is producing urine output in order of 30 mL an hour. She is currently on IV fluids at [facility]. Objective - Vital Signs Vital signs: Vital Signs Temp 98.8 F 08/17/21 04:00 Pulse 88 08/17/21 07:00 Resp 39 H 08/17/21 07:00 BP 118/69 08/17/21 07:00 Pulse Ox 96 08/17/21 07:00 Intake & Output 08/16/21 08/17/21 08/17/21 18:59 06:59 18:59 Output Total 1100 410 30 Balance -1100 -410 -30 Weight 64 kg Output: Urine 1100 410 30 Other: Voiding Method Indwelling Catheter # Voids 1 - Exam GENERAL EXAM: Lethargic, labored breathing, currently on a BiPAP at a pressure of 12/6 cm of water with an FiO2 of 100%, quite thickened neck and breathing fast HEAD: Normocephalic/atraumatic. EYES: Normal reaction of pupils, equal size. Conjunctiva pink, sclera white. NOSE: Clear with pink turbinates. THROAT: No erythema or exudates. NECK: No masses, no JVD, no thyroid enlargement, no adenopathy. CHEST: No chest wall deformity. Symmetrical expansion. LUNGS: Equal air entry with crackles, wheeze, rhonchi or dullness. Patient is quite tachypneic and her breathing is labored and she is breathing fast he gets symptoms with the mechanical ventilator. CVS: Regular rate and rhythm, normal S1 and S2, no gallops, no murmurs, no rubs ABDOMEN: Soft, nontender. No hepatosplenomegaly, normal bowel sounds, no guarding or rigidity. EXTREMITIES: No clubbing, no edema, no cyanosis, 2+ pulses and upper and lower extremities. MUSCULOSKELETAL: Muscle strength and tone normal. SPINE: No scoliosis or deformity SKIN: No rashes CENTRAL NERVOUS SYSTEM: Lethargic yet arousable. No focal deficits, tone is normal in all 4 extremities. - Labs CBC & Chem 7: 08/15/21 23:59 08/15/21 23:59 Labs: Abnormal Lab Results - Last 24 Hours (Table) 08/16/21 08/16/21 08/16/21 Range/Units 07:30 11:00 11:00 D-Dimer 1.12 H (<0.60) mg/L FEU ABG Total CO2 (19-24) mmol/L ABG O2 Saturation (94-97) % POC Glucose (mg/dL) (75-99) mg/dL Lactate Dehydrogenase 2128 H (313-618) U/L C-Reactive Protein 15.2 H (<1.0) mg/dL Procalcitonin (0.02-0.09) ng/mL Urine Protein Trace H (Negative) Ur Leukocyte Esterase Trace H (Negative) Urine Mucus Rare H (None) /hpf Coronavirus (PCR) (Not Detectd) 08/16/21 08/16/21 08/16/21 Range/Units 11:00 12:58 23:07 D-Dimer (<0.60) mg/L FEU ABG Total CO2 25 H (19-24) mmol/L ABG O2 Saturation 97.8 H (94-97) % POC Glucose (mg/dL) 126 H (75-99) mg/dL Lactate Dehydrogenase (313-618) U/L C-Reactive Protein (<1.0) mg/dL Procalcitonin (0.02-0.09) ng/mL Urine Protein (Negative) Ur Leukocyte Esterase (Negative) Urine Mucus (None) /hpf Coronavirus (PCR) Detected A (Not Detectd) 08/16/21 08/17/21 08/17/21 Range/Units 23:59 05:21 05:21 D-Dimer 1.12 H (<0.60) mg/L FEU ABG Total CO2 (19-24) mmol/L ABG O2 Saturation (94-97) % POC Glucose (mg/dL) (75-99) mg/dL Lactate Dehydrogenase 2398 H (313-618) U/L C-Reactive Protein (<1.0) mg/dL Procalcitonin 0.26 H (0.02-0.09) ng/mL Urine Protein (Negative) Ur Leukocyte Esterase (Negative) Urine Mucus (None) /hpf Coronavirus (PCR) (Not Detectd) Microbiology - Last 24 Hours (Table) 08/16/21 00:00 Blood Culture - Preliminary Blood No Growth after 24 hours 08/16/21 00:15 Blood Culture - Preliminary Blood No Growth after 24 hours Assessment and Plan Plan: 1 acute on chronic hypoxic respiratory failure. The patient comes into the hospital after being discharged from the hospital for COVID-19 related pneumoni a. Currently she has diffuse bilateral groundglass pulmonary infiltrates consistent with community related pneumonia. The patient is quite tachypneic and her breathing is labored at this point in time. She remains BiPAP dependent at pressure of 12/6 with an FiO2 of 100%. Chest x-ray is unchanged. CAT scan of the chest showed diffuse ground glass pulmonary changes which is probably progression of Covid 19 related pneumonia or development of an acute lung injury/ARDS. The patient is currently on IV Solu-Medrol. Antibiotics on broad- spectrum an empiric in nature. The inflammatory markers are quite elevated. The blood gases was noted. Chest x-ray was noted. Procal is 0.26 dimer was 1.1 2. 2 history of COVID 19 related pneumonia back in July 2021 treated back in June 2021 discharged from the hospital on 07/30/2021 3 history of recurrent pulmonary embolism and 10 on Eliquis on outpatient basis, CT angios gram showed no evidence of any pulmonary embolism 4 shortness of breath secondary to above chronic bronchial asthma 6 hypertension 7 celiac disease 8 hypertension 9 chronic anxiety Plan The BiPAP for respiratory support and sent pressure setting Chest x-ray from today was noted Start Precedex for restlessness and agitation and avoid benzodiazepines Continue IV Solu-Medrol 60 mg every 6 hours Continue a combination of cefepime and Zithromax Obtain a echocardiogram Check inflammatory markers including LDH, CRP and d-dimer Continue anti-coagulation with Eliquis Continue BiPAP the same setting. High likelihood that the patient may further decompensated and may end up being intubated and mechanically ventilated. CODE STATUS will be established. For now her CODE STATUS is full Care evaluation that was done in more than 30 min Time with Patient: Greater than 30
--- NOTE | 2021-08-17 08:25 | XR ---
EXAMINATION TYPE: XR chest 1V DATE OF EXAM: 08/17/2021 COMPARISON: 08/16/2021 HISTORY: 85-year-old female assess lungs TECHNIQUE: Single frontal view of the chest is obtained. FINDINGS: Heart is enlarged. Diffuse interstitial and bilateral patchy peripheral opacities remain. Some airspa ce opacities show improvement from prior exam. IMPRESSION: 1. Continued cardiomegaly. 2. Continued diffuse interstitial changes but with slight improvement in patchy peripheral infiltrate s.
[2021-08-17] MEDS ORDERED: DEXMEDETOMIDINE/0.9% NACL(PMX) 400 MCG in EMPTY BAG 1 BAG IV SCH (08:30)
[2021-08-17 08:43] LABS: C Reactive Protein 20.4 mg/dL (<1.0)
[2021-08-17 08:53] LABS: ALT 19 U/L (4-34); AST 55 U/L (14-36); African American GFR (CKD) >90 (>60 ml/min/1.73 sqM); Albumin 2.7 g/dL (3.5-5.0); Alkaline Phosphatase 157 U/L (38-126); Anion Gap 10 mmol/L; Blood Urea Nitrogen 19 mg/dL (7-17); Calcium 9.1 mg/dL (8.4-10.2); Carbon Dioxide 21 mmol/L (22-30); Chloride 112 mmol/L (98-107); Glucose 132 mg/dL (74-99); Non-African American GFR(CKD) 89 (>60 ml/min/1.73 sqM); Potassium 4.9 mmol/L (3.5-5.1); Sodium 143 mmol/L (137-145); Total Bilirubin 0.5 mg/dL (0.2-1.3); Total Protein 5.7 g/dL (6.3-8.2)
[2021-08-17] MEDS: ALBUTEROL HFA INHALER INHALATION SCH ×3 (09:15→15:32)
[2021-08-17] MEDS: SYMBICORT 80-4.5 MCG INHALER INHALATION SCH (09:15)
[2021-08-17] MEDS: CEFEPIME 1 GM in SODIUM CHLORIDE 0.9% 50 ML IVPB SCH (09:31)
[2021-08-17] MEDS: APIXABAN 5 MG TAB PO SCH ×2 (10:03→11:27)
[2021-08-17] MEDS: ASPIRIN 81 MG PO SCH (10:38)
[2021-08-17] MEDS: CHOLECALCIFEROL 25 MCG (1000 IU) TABLET PO SCH (10:38)
[2021-08-17] MEDS: FAMOTIDINE 20 MG TAB PO SCH (10:38)
[2021-08-17] MEDS: METOPROLOL SUCCINATE (ER) 100 MG TAB.ER.24H PO SCH (10:38)
[2021-08-17] MEDS: NIFEdipine XL 30 MG TAB.ER.24 PO SCH (10:39)
[2021-08-17] MEDS: OXYBUTYNIN XL 5 MG TAB.ER.24 PO SCH (10:39)
--- NOTE | 2021-08-17 11:46 | ECHOF ---
Referral Reason:covid MEASUREMENTS -------- HEIGHT: 152.4 cm WEIGHT: 68.0 kg BP: RVIDd: 2.9 cm (< 3.3) IVSd: 1.2 cm (0.6 - 1.1) LVIDd: 3.7 cm (3.9 - 5.3) LVPWd: 1.6 cm (0.6 - 1.1) IVSs: 1.6 cm LVIDs: 2.5 cm LVPWs: 1.4 cm Ao Diam: 2.5 cm (2.0 - 3.7) MV EXCURSION: 13.595 mm (> 18.000) MV EF SLOPE: 60 mm/s (70 - 150) EPSS: 0.2 cm MV E Nic: 0.50 m/s MV DecT: 265 ms MV A Nic: 0.84 m/s MV E/A Ratio: 0.60 RAP: 5.00 mmHg RVSP: 65.14 mmHg FINDINGS -------- Sinus rhythm. Pt is COVID POSITIVE REASON FOR TEST COVID. The left ventricular size is normal. There is borderline concentric left ventricular hypertrophy. Overall left ventricular systolic function is normal with, an EF between 55 - 60 %. The right ventricle is normal in size. The left atrial size is normal. The right atrial size is normal. The aortic valve is trileaflet, and appears structurally normal. No aortic stenosis or regurgitation. Mild mitral annular calcification present. Mild mitral regurgitation is present. [id number] tricuspid regurgitation present. There is moderate pulmonary hypertension. The r ight ventricular systolic pressure, as measured by Doppler, is 65.14mmHg. Trace/mild (physiologic) pulmonic regurgitation. The aortic root size is normal. Echo free space represents a pericardial fat pad. CONCLUSIONS -------- 1. Pt is COVID POSITIVE REASON FOR TEST COVID. 2. There is borderline concentric left ventricular hypertrophy. 3. Overall left ventricular systolic function is normal with, an EF between 55 - 60 %. 4. The left atrial size is normal. 5. The aortic valve is trileaflet, and appears structurally normal. No aortic stenosis or regurgitati on. 6. Mild mitral regurgitation is present. 7. Baem-[id number]-meoshkhl tricuspid regurgitation present. 8. There is moderate pulmonary hypertension. 9. Trace/mild (physiologic) pulmonic regurgitation. 10. Echo free space represents a pericardial fat pad. [employer]OCKSTITCH: Tea Swartz RDCS
[2021-08-17] MEDS ORDERED: AZITHROMYCIN 500 MG in SODIUM CHLORIDE 0.9% 250 ML IVPB SCH (12:00)
[2021-08-17] MEDS ORDERED: MORPHINE SULFATE 4 MG/ML SYRINGE IVP ONE (14:26)
[2021-08-17] MEDS ORDERED: MORPHINE SULFATE 2 MG/ML SYRINGE IV PRN (14:26)
[2021-08-17] MEDS ORDERED: SCOPOLAMINE 1.5MG/72HR PATCH TRANSDERM SCH (14:30)
[2021-08-17] MEDS: MORPHINE SULFATE (100 MG/2 ML) 100 MG in SODIUM CHLORIDE 0.9% 100 ML IV SCH ×2 (15:01→19:35)
--- NOTE | 2021-08-17 20:33 | P.PN ---
Subjective Progress Note Date: 08/17/21 Objective - Vital Signs Vital signs: Vital Signs Temp 97.9 F 08/17/21 12:00 Pulse 76 08/17/21 18:00 Resp 15 08/17/21 18:00 BP 118/74 08/17/21 16:00 Pulse Ox 96 08/17/21 16:00 Intake & Output 08/17/21 08/17/21 08/18/21 06:59 18:59 06:59 Intake Total 634.349 55.08 Output Total 410 165 Balance -410 469.349 55.08 Weight 64 kg Intake: Intake, IV Titration 634.349 55.08 Amount Azithromycin 500 mg In 125 Sodium Chloride 0.9% 250 ml @ 250 mls/hr IVPB DAILY@1200 [facility] Rx#: [id number] Cefepime 1 gm In Sodium 50 Chloride 0.9% 50 ml @ 12. 5 mls/hr IVPB Q12HR [facility] Rx#:[id number] Dexmedetomidine/0.9% NaCl 55.653 (Pmx) 400 mcg In Empty Bag 1 bag @ 0.2 MCG/KG/HR 3.2 mls/hr IV .Q24H [facility] Rx#:[id number] Morphine Sulfate (100 mg/ 28.696 55.08 2 ml) 100 mg In Sodium Chloride 0.9% 100 ml @ 1 MG/HR 1.02 mls/hr IV . Q24H [facility] Rx#:[id number] Sodium Chloride 0.9% 1, 375 000 ml @ 75 mls/hr IV . [id number] [facility] Rx#:[id number] Output: Urine 410 165 Other: Voiding Method Indwelling Catheter Indwelling Catheter - Labs CBC & Chem 7: 08/17/21 05:21 08/17/21 05:21 Labs: Abnormal Lab Results - Last 24 Hours (Table) 08/16/21 08/17/21 08/17/21 Range/Units 23:07 05:21 05:21 WBC (3.8-10.6) k/uL MCHC (31.0-37.0) g/dL Neutrophils # (1.3-7.7) k/uL Lymphocytes # (1.0-4.8) k/uL D-Dimer 1.12 H (<0.60) mg/L FEU Chloride (98-107) mmol/L Carbon Dioxide (22-30) mmol/L BUN (7-17) mg/dL Creatinine (0.52-1.04) mg/dL Glucose (74-99) mg/dL POC Glucose (mg/dL) 126 H (75-99) mg/dL AST (14-36) U/L Alkaline Phosphatase (38-126) U/L Lactate Dehydrogenase 2398 H (313-618) U/L C-Reactive Protein 20.4 H (<1.0) mg/dL Total Protein (6.3-8.2) g/dL Albumin (3.5-5.0) g/dL 08/17/21 08/17/21 Range/Units 05:21 05:21 WBC 13.2 H (3.8-10.6) k/uL MCHC 30.8 L (31.0-37.0) g/dL Neutrophils # 11.7 H (1.3-7.7) k/uL Lymphocytes # 0.9 L (1.0-4.8) k/uL D-Dimer (<0.60) mg/L FEU Chloride 112 H (98-107) mmol/L Carbon Dioxide 21 L (22-30) mmol/L BUN 19 H (7-17) mg/dL Creatinine 0.50 L (0.52-1.04) mg/dL Glucose 132 H (74-99) mg/dL POC Glucose (mg/dL) (75-99) mg/dL AST 55 H (14-36) U/L Alkaline Phosphatase 157 H (38-126) U/L Lactate Dehydrogenase (313-618) U/L C-Reactive Protein (<1.0) mg/dL Total Protein 5.7 L (6.3-8.2) g/dL Albumin 2.7 L (3.5-5.0) g/dL Microbiology - Last 24 Hours (Table) 08/16/21 00:00 Blood Culture - Preliminary Blood No Growth after 24 hours 08/16/21 00:15 Blood Culture - Preliminary Blood No Growth after 24 hours
[2021-08-17] MEDS ORDERED: CEFEPIME 2 GM in SODIUM CHLORIDE 0.9% 100 ML IVPB SCH (21:00)
[2021-08-18] MEDS: MORPHINE SULFATE (100 MG/2 ML) 100 MG in SODIUM CHLORIDE 0.9% 100 ML IV SCH ×4 (00:11→10:03)
[2021-08-18 01:22] VITALS: TEMP 96
[2021-08-18 07:00] VITALS: PULSE 80
--- NOTE | 2021-08-18 08:56 | P.PN ---
Progress Note - Text Progress Note Date: 08/18/21 On today's evaluation of 08/18/2021, the patient is in comfort measures. As mentioned earlier, this 85-year-old female patient with acute on chronic hypoxic respiratory failure secondary to Covid 19 related pneumonia. The patient presented Zosyn and she is bilateral pulmonary infiltrates. The patient was on a BiPAP which was BiPAP dependent for a few days and ultimately the family opted to proceed with comfort care measures. She has previous history of recurrent pulmonary embolism and bronchial asthma addition to hypertension severe disease and chronic anxiety. The patient at this point in time is on a morphine drip and she is quite comfortable. Family is at the bedside. She also has a scopolamine patch. No other significant issues overnight. The patient is currently on room air oxygen and she seems to be quite comfortable at this point in time. Her respiratory rate in the order of 14 times per minute. No signs of any distress. No pain. No agitation. Morphine drip is running at 25 mg an hour. This is being titrated for comfort measures. Impression 1 acute on chronic hypoxic respiratory failure. The patient comes into the hospital after being discharged from the hospital for COVID-19 related pneumonia. Currently she has diffuse bilateral groundglass pulmonary infiltrates consistent with community related pneumonia. Other vital pneumonias cannot be completely excluded. Nonspecific cause of ARDS cannot be completely excluded. CHF/interstitial edema is felt to be less likely. Noted the patient was discharged home on 07/30/2021 on 4 L of oxygen by nasal cannula. Her condition further decompensated and for that reason the patient came in with wor sening hypoxemia and the patient is currently on 100% nonrebreather facemask which got transitioned to BiPAP pressure of 12/6 cm of water and FiO2 of 80%. Subsequently, the patient's family opted with comfort care measures and the patient is currently receiving comfort care measures , currently on room air oxygen. The patient is stable. Rest of the medications all discontinued. 2 history of COVID 19 related pneumonia back in July 2021 treated back in June 2021 discharged from the hospital on 07/30/2021 3 history of recurrent pulmonary embolism and 10 on Eliquis on outpatient basis, CT angios gram showed no evidence of any pulmonary embolism 4 shortness of breath secondary to above chronic bronchial asthma 6 hypertension 7 celiac disease 8 hypertension 9 chronic anxiety Plan Continue end-of-life care Continue morphine drip Scopolamine patch Family is at the bedside
[2021-08-18 09:39] VITALS: BP 67/32; RESP 8
[2021-08-18] MEDS: AZITHROMYCIN 500 MG TAB PO SCH (10:02)
[2021-08-18] MEDS: methylPREDNISolone SOD SUCCI 125 MG/2 ML VIAL IV SCH (10:02)
--- NOTE | 2021-08-30 10:26 | CDI ---
Documentation Clarification Form Mortality Review Date: 08/30/2021 09:40:23 AM From: Teresa Cornell RN, CCDS Admit Date: 08/16/2021 02:12:00 AM Patient Name: Yamila Chan Visit Number: [id number] Discharge Date: 08/18/2021 01:00:00 PM ATTENTION: The Clinical Documentation Specialists (CDI) and [facility] Coding Staff appreciate your assistance in clarifying documentation. Please respond to the clarification below the line at the bottom and electronically sign. The CDI & [facility] Coding staff will review the response and follow-up if needed. Please note: Queries are made part of the Legal Health Record. If you have any questions, please contact the author of this message via ITS. Dr. Johnathan Swartz Your patient has the documented symptom of Altered Mental Status since admission to ]. Additional clarification regarding the etiology/cause of this symptom is requested. History/Risk Factors: Covid 19 infection June 2021, Asthma, COPD, HTN, PE, Celiac Disease Clinical Indicators: 08/15 ED note: "Chief Complaint: Limitations: altered mental status (Patient appears delirious)." Pulmonary consult and Progress notes 08/16 & 08/17: "Today and into tonight she was becoming more confused so EMS was called. 08/16 H&P: "Patient has become more confused and EMS was called. PHYSICAL EXAMINATION: No clubbing or cyanosis Neurologically awake, alert but confused." 08/17 CT Chest; "Continued cardiomegaly. Continued diffuse interstitial changes but with slight improvement in patchy peripheral infiltrates." 08/15-08/17 Labs: WBC 16.1/13.2, Neutrophils 14.1/11.7, D-Dimer 1.17/1.12/1.12, Lactic Acid 3.4/1.3, troponin .070/.091, Procalcitonin .26, coronavirus positive Documented infection: Covid 19 pneumonia Documented Organ Dysfunction: ARDS Treatment: 08/15 0.9% NS 500 CC IVF Bolus, followed by 130 cc/hr. IV Solumedrol 60 mg IVP Q 6 hrs. 08/17 IV Zithromax 250 ml@ 250 cc/hr. 08/16 Cefepime 1gm IVPB q 12 hrs. 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
== END 2021-08-18 13:00 | disposition expired | DRG 177 ==
LOC: EC 23:29 → 3SCARD 08-16 02:12 → 2SICU 08-16 10:22 → 4SSUR 08-18 10:02
PROVIDERS: ADMIT Hospitalist; ATTEND Hospitalist
PROC: 5A09457 Assistance with Respiratory Ventilation, 24-96 Consecutive Hours, Continuous Positive Airway Pressure (ICD-10-PCS; principal; 2021-08-16)
DX: U07.1 COVID-19 (principal); J12.82 Pneumonia due to coronavirus disease 2019; J80 Acute respiratory distress syndrome; G93.41 Metabolic encephalopathy; E87.2 Acidosis; J44.0 Chronic obstructive pulmonary disease with (acute) lower respiratory infection; J81.1 Chronic pulmonary edema; Z51.5 Encounter for palliative care; Z66 Do not resuscitate; I10 Essential (primary) hypertension; K90.0 Celiac disease; R00.0 Tachycardia, unspecified; F41.9 Anxiety disorder, unspecified; K21.9 Gastro-esophageal reflux disease without esophagitis; Z79.01 Long term (current) use of anticoagulants; Z79.1 Long term (current) use of non-steroidal anti-inflammatories (NSAID); Z79.82 Long term (current) use of aspirin; Z79.899 Other long term (current) drug therapy; Z86.711 Personal history of pulmonary embolism; Z90.710 Acquired absence of both cervix and uterus
CPT/HCPCS: 36415; 36600; 71045; 71275; 80053; 81001; 82805; 83605; 83615; 83880; 84145; 84484; 85025; 85379; 85610; 85730; 86140; 87040; 87449; 87502; 87634; 87635; 93005; 93306; 94640; 94660; 96365; 96375; 99291